=== PATIENT | female | born 1975 | race Caucasian/White ===

== ENCOUNTER 2017-09-23 13:33 | Emergency (ER) | payer BC, SELFPAY ==
[2017-09-23 13:33] VITALS: BP 148/98; PULSE 79; RESP 20; TEMP 36.4; O2SAT 99; BMI 25.8
--- NOTE | 2017-09-23 13:37 | ED_ITS ---
HPI - Abdominal Pain <JOSÉ MIGUEL Meredith - Last Filed: 09/23/17 22:09> General Chief Complaint: Urogenital-Female Stated Complaint: LOW ABD PAIN Time Seen by Provider: 09/23/17 13:36 History of Present Illness HPI narrative: 42-year-old female here for complaint of having left lower quadrant/pelvic pain that started a couple days ago. She denies any vaginal discharge or bleeding. She denies any urinary symptoms. No fevers no chills. She denies any complications with bowel movements. Positive p.o. intake. Denies any trauma to the area. Increased pain with palpation to the area. Related Data Home Medications Medication Instructions Recorded Confirmed citalopram 10 mg PO QPM #0 05/11/17 09/23/17 albuterol sulfate [ProAir HFA] 2 puff INHALATION Q4H PRN 09/23/17 09/23/17 norgestimate-ethinyl estradiol 1 tab PO DAILY 09/23/17 09/23/17 [Lori (28)] Previous Rx's Medication Instructions Recorded losartan 50 mg PO QDAY #30 tab 02/10/16 Allergies Allergy/AdvReac Type Severity Reaction Status Date / Time ethinyl estradiol Allergy Unknown Unverified 08/17/17 12:04 [ETHINYL ESTRADIOL] loratadine [LORATADINE] Allergy Unknown Unverified 08/17/17 12:04 norgestimate [NORGESTIMATE] Allergy Unknown Unverified 08/17/17 12:04 Review of Systems <JOSÉ MIGUEL Meredith - Last Filed: 09/23/17 22:09> Eyes Denies change in vision, Denies eye discharge, Denies irritation and Denies loss of vision Cardiovascular Denies chest pain, Denies irregular heart rhythm, Denies lightheadedness, Denies palpitations and Denies orthopnea Gastrointestinal Gastrointestinal: Denies abdominal pain, Denies change in bowel habits, Denies diarrhea, Denies nausea and Denies vomiting Genitourinary Reports pelvic pain Neurologic Denies confusion and Denies loss of vision Psychiatric Denies anxiety, Denies confusion, Denies depression, Denies homicidal ideation and Denies suicidal ideation Endocrine Denies palpitations Exam <JOSÉ MIGUEL Meredith - Last Filed: 09/23/17 22:09> Initial Vital Signs Initial Vital Signs: Vital Signs Temperature 97.6 F 09/23/17 13:33 Pulse Rate 79 09/23/17 13:33 Respiratory Rate 20 09/23/17 13:33 Blood Pressure 148/98 H 09/23/17 13:33 Pulse Oximetry 99 09/23/17 13:33 Const General: cooperative and well developed Nutritional Appearance: well nourished Orientation: alert, awake, oriented x3 and not confused [facility] Mouth: oral mucosae normal and moist mucous membranes Eyes General: appearance normal, both eyes and all related structures Eyelids: eyelids normal Conjunctivae: conjunctivae normal Sclera: sclerae normal Pupils: PERRL EOM: EOM intact bilaterally Resp Effort & Inspection: normal respiratory effort, able to speak in complete sentences, no respiratory distress and no use of accessory muscles Auscultation: clear to auscultation bilaterally, no rales, no rhonchi and no wheezes Cardio Rate: regular rate Rhythm: regular rhythm Heart Sounds: no click, no gallops, no murmurs and no rubs GI Inspection: normal to inspection Palpation: soft, No hepatomegaly, No hernia, No mass, No pulsatile mass and tender (Suprapubic region tenderness on palpation) Auscultation: normal bowel sounds General: No CVA tenderness Skin General: no rashes or lesions noted, No jaundice and No petechiae <Lorne Jenkins DO - Last Filed: 09/24/17 08:20> Initial Vital Signs Initial Vital Signs: Vital Signs Temperature 97.6 F 09/23/17 13:33 Pulse Rate 79 09/23/17 13:33 Respiratory Rate 20 09/23/17 13:33 Blood Pressure 148/98 H 09/23/17 13:33 Pulse Oximetry 99 09/23/17 13:33 Course <JOSÉ MIGUEL Meredith - Last Filed: 09/23/17 22:09> Orders Ordered: Discontinued Medications Hydromorphone HCl (Dilaudid) 0.5 mg IV NOW ONE Stop: 09/23/17 13:53 Last Admin: 09/23/17 14:32 Dose: 0.5 mg Sodium Chloride (Normal Saline 0.9%) 1,000 mls @ 1,000 mls/hr IV BOLUS ONE Stop: 09/23/17 14:51 Last Infusion: 09/23/17 16:45 Dose: 0 mls/hr Admin: 09/23/17 14:30 Dose: 1,000 mls/hr Ondansetron HCl (Zofran) 4 mg IV NOW ONE Stop: 09/23/17 13:53 Last Admin: 09/23/17 14:31 Dose: 4 mg Vital Signs - 8 hr 09/23/17 16:39 Pulse Rate 75 Respiratory Rate 16 Blood Pressure [Left Arm] 133/86 H Pulse Oximetry 100 <Lorne Jenkins DO - Last Filed: 09/24/17 08:20> Orders Ordered: Discontinued Medications Hydromorphone HCl (Dilaudid) 0.5 mg IV NOW ONE Stop: 09/23/17 13:53 Last Admin: 09/23/17 14:32 Dose: 0.5 mg Sodium Chloride (Normal Saline 0.9%) 1,000 mls @ 1,000 mls/hr IV BOLUS ONE Stop: 09/23/17 14:51 Last Infusion: 09/23/17 16:45 Dose: 0 mls/hr Admin: 09/23/17 14:30 Dose: 1,000 mls/hr Ondansetron HCl (Zofran) 4 mg IV NOW ONE Stop: 09/23/17 13:53 Last Admin: 09/23/17 14:31 Dose: 4 mg Vital Signs - 8 hr 09/23/17 16:39 Pulse Rate 75 Respiratory Rate 16 Blood Pressure [Left Arm] 133/86 H Pulse Oximetry 100 MDM - Abdominal Pain <JOSÉ MIGUEL Meredith - Last Filed: 09/23/17 22:09> Lab Data Result diagrams: 09/23/17 14:18 09/23/17 14:18 Lab Results 09/23/17 09/23/17 Range/Units 14:18 14:18 WBC 9.6 (4.5-11.0) X10^3/uL RBC 4.36 (4.0-5.2) X10^6/uL Hgb 12.4 (12.0-16.0) g/dL Hct 37.1 (36-46) % MCV 85.2 (80-100) fL MCH 28.5 (26-34) PG MCHC 33.5 (30-36) % RDW 14.1 (11.6-14.8) % Plt Count 207 (150-400) X10^3/uL Neut % (Auto) 64.7 (50-75) % Lymph % (Auto) 27.8 (25-40) % [place] % (Auto) 4.5 (3-14) % Eos % (Auto) 2.2 (2-4) % Baso % (Auto) 0.8 (0-2) % Neut # (Auto) 6200 H (8384-5799) /uL Sodium 139 (137-145) mmol/L Potassium 3.9 (3.4-5.1) mmol/L Chloride 103.0 (98-107) mmol/L Carbon Dioxide 25.0 (22-32) mmol/L BUN 14.0 (7-17) mg/dL Creatinine 0.80 (0.52-1.04) mg/dL Estimated GFR > 60.0 (>60) mL/min BUN/Creatinine Ratio 17.5 (6-22) Glucose 117 H (70-100) mg/dL Calcium 9.2 (8.4-10.2) mg/dL Total Bilirubin 0.4 (0.2-1.3) mg/dL AST 16 (14-36) IU/L ALT 18 (9-52) IU/L Alkaline Phosphatase 47 (38-126) U/L Total Protein 6.9 (6.3-8.2) g/dL Albumin 3.9 (3.5-5.0) g/dL Globulin 3.0 (1.7-4.1) g/dL Albumin/Globulin Ratio 1.3 (1.0-2.8) Lipase 137 (23-300) U/L Imaging Data CT scan - abdomen: Radiologist's impression: PROCEDURE: CT ABDOMEN PELVIS W CON INDICATIONS: Pain to left lower quadrant/pelvic TECHNIQUE: After the administration of oral and intravenous contrast, 5 mm thick sections acquired from the diaphragms to the symphysis. 5 mm thick coronal and sagittal reformats were performed. For radiation dose reduction, the following was used: automated exposure control, adjustment of mA and/or kV according to patient size. COMPARISON: [facility], US, US PELVIC COMPLETE, 09/23/2017, 14:46. [facility], CT, KIDNEY/ URETER/BLADDER, 03/25/2009, 12:40. FINDINGS: Image quality: Excellent. ABDOMEN: Lung bases: Lung bases are clear. Heart size is normal. Solid organs: Liver is normal in size. There is a centrally enhancing and peripherally hypodense structure identified within the mid aspect of the liver, probably involving the anterior segment of the medial segment of the left hepatic lobe, measuring 9 x 13 mm (image 17, series 2). Gallbladder is decompressed and subsequently not adequately evaluated. Biliary system is non-dilated. Pancreas enhances normally. Spleen is normal in size and enhancement. No adrenal nodules. Kidneys are normal in size and enhancement, without hydronephrosis. Peritoneum and bowel: There is a small hiatal hernia. The stomach and duodenum are otherwise unremarkable. Small bowel loops are nondilated. The appendix is well-visualized and normal. There is moderate residual stool identified within the colon. No mesenteric inflammation is identified. There is no free fluid, loculated fluid collection or free air. Nodes and vessels: No retroperitoneal or mesenteric adenopathy. Aorta and inferior vena cava are normal in caliber. Miscellaneous: There is a small fat containing periumbilical hernia. Is decompressed and subsequently not well evaluated PELVIS: Genitourinary: Bladder wall thickness is normal. The uterus is enlarged and contains multiple fibroids with the largest located along the posterior aspect of the uterus that measures up to approximately 4.7 cm. Left paraovarian cyst correlates with the cystic structure evident on the prior ultrasound. The right ovary is not enlarged. Miscellaneous: No inguinal hernias or adenopathy. No free fluid, loculated fluid collection or free air is identified. Bones: No suspicious bony lesions. No vertebral body compression fractures. IMPRESSION: 1. No definite findings are identified within the abdomen or pelvis to explain the patient's left-sided pelvic pain. 2. Left ovarian cyst correlates with the cystic structure evident on the ultrasound. 3. Multiple uterine fibroids. 4. Normal appendix. 5. Moderate residual stool within the colon may represent constipation. No bowel obstruction. 6. Enhancing lesion within the liver most likely represents a hemangioma. Dedicated MR or CT imaging of the abdomen to evaluate this structure there is recommended, which may be performed on an outpatient basis. Dictated by: Hunter Salazar M.D. on 09/23/2017 at 15:06 Approved by: Hunter Salazar M.D. on 09/23/2017 at 15:15 pelvis: My impression: MDM Narrative Medical decision making narrative: CBC Chem panel and lipase were obtained were unremarkable. Urine dip and urine were negative. Pelvic ultrasound shows left ovarian cyst and fibroids. CT of the abdomen was obtained and also shows left ovarian cyst of fibroids no other acute findings are seen. Patient informed that I the cyst or the fibroids could be causing her discomfort. She is encouraged to follow up with her primary care provider. [id number] Tylenol or Motrin as needed for discomfort. Return emergency room for any worsening symptoms. <Lorne Jenkins, DO - Last Filed: 09/24/17 08:20> Lab Data Lab Results 09/23/17 09/23/17 Range/Units 14:18 14:18 WBC 9.6 (4.5-11.0) X10^3/uL RBC 4.36 (4.0-5.2) X10^6/uL Hgb 12.4 (12.0-16.0) g/dL Hct 37.1 (36-46) % MCV 85.2 (80-100) fL MCH 28.5 (26-34) PG MCHC 33.5 (30-36) % RDW 14.1 (11.6-14.8) % Plt Count 207 (150-400) X10^3/uL Neut % (Auto) 64.7 (50-75) % Lymph % (Auto) 27.8 (25-40) % [place] % (Auto) 4.5 (3-14) % Eos % (Auto) 2.2 (2-4) % Baso % (Auto) 0.8 (0-2) % Neut # (Auto) 6200 H (7413-4271) /uL Sodium 139 (137-145) mmol/L Potassium 3.9 (3.4-5.1) mmol/L Chloride 103.0 (98-107) mmol/L Carbon Dioxide 25.0 (22-32) mmol/L BUN 14.0 (7-17) mg/dL Creatinine 0.80 (0.52-1.04) mg/dL Estimated GFR > 60.0 (>60) mL/min BUN/Creatinine Ratio 17.5 (6-22) Glucose 117 H (70-100) mg/dL Calcium 9.2 (8.4-10.2) mg/dL Total Bilirubin 0.4 (0.2-1.3) mg/dL AST 16 (14-36) IU/L ALT 18 (9-52) IU/L Alkaline Phosphatase 47 (38-126) U/L Total Protein 6.9 (6.3-8.2) g/dL Albumin 3.9 (3.5-5.0) g/dL Globulin 3.0 (1.7-4.1) g/dL Albumin/Globulin Ratio 1.3 (1.0-2.8) Lipase 137 (23-300) U/L Discharge Plan Departure Patient Disposition: Home, Self-Care Clinical Impression: Ovarian cyst Discharge Date/Time: 09/23/17 16:47 Interventions: ED Discharge Assessment Last Done: 09/23/17 16:47 Instructions: DI for Ovarian Cyst Activity Restrictions/Additional Instructions: Ultrasound and a CT show ovarian cyst to the left ovary region and also some fibroids that could be causing your discomfort. Use [id number] Tylenol or Motrin as needed for any discomfort. Follow up with your primary care provider next week. Return emergency room for any worsening symptoms. Lab values were unremarkable. Prescriptions: No Action losartan 50 MG tablet 50 mg PO QDAY Qty: 30 RF: 3 citalopram 20 MG tablet 10 mg PO QPM Qty: 0 RF: 0 norgestimate-ethinyl estradiol [Mononessa (28)] 0.25-35 mg-mcg tablet 1 tab PO DAILY RF: 0 albuterol sulfate [ProAir HFA] 90 mcg/actuation HFA aerosol inhaler 2 puff Inhalation Q4H PRN (Reason: Shortness Of Breath) RF: 0 Referrals: True Caicedo MD [Primary Care Provider] - <Lorne Jenkins DO - Last Filed: 09/24/17 08:20> Cosign ED Attending Joannature Attestation: I was immediately available in the department for consultation. This documentation has been reviewed and I agree with assessment and plan. Supervised by Lorne Jenkins DO
--- NOTE | 2017-09-23 13:52 | DI.US.S_ITS ---
PROCEDURE: US PELVIC COMPLETE INDICATIONS: Left pelvic pain TECHNIQUE: Real-time scanning was performed of the pelvic organs, with image documentation. Additional endovaginal scanning was necessary due to incomplete visualization of the adnexal and endometrial structures by transabdominal scanning. COMPARISON: None. FINDINGS: Transabdominal scanning: Limited scanning through the kidneys shows no hydronephrosis. No pathologic free abdominal or pelvic fluid. Endovaginal scanning: Uterus: The uterus is normal in size and measures 8.3 x 3.7 x 5.3 cm. There are multiple uterine fibroids identified. The largest is located on the mid aspect of the posterior uterus, measuring up to 4.5 cm and is located along the lower uterine segment. This fibroid is felt to represent an intramural fibroid without definite mass effect on the endometrium. 2 additional smaller subserosal fibroids are evident on the anterior aspect of the uterus measuring 1.5 and 1.7 cm respectively. The endometrium is not well-seen on this examination, but measures approximately 5 mm in maximal combined thickness. No significant fluid is contained within the endometrium. The cervix is unremarkable. Ovaries: The right ovary is not definitely seen. No adnexal abnormality is appreciated. The left ovary measures 1.9 x 1.2 x 1.2 cm. Within the left adnexa, there is a cystic structure identified measuring up to 1.9 cm, likely representing a paraovarian cyst. IMPRESSION: 1. Left paraovarian cyst is of doubtful clinical significance. No hemorrhagic left ovarian cysts are evident. 2. Multiple uterine fibroids. Dictated by: Hunter Salazar M.D. on 09/23/2017 at 14:19 Approved by: Hunter Salazar M.D. on 09/23/2017 at 14:21
[2017-09-23 14:27] LABS: Add Manual Diff / Slide Review NO; Basophils Percent Auto 0.8 % (0-2); Eosinophils Percent Auto 2.2 % (2-4); Hematocrit 37.1 % (36-46); Hemoglobin 12.4 g/dL (12.0-16.0); Lymphocytes Percent Auto 27.8 % (25-40); Mean Corpuscular HGB Conc 33.5 % (30-36); Mean Corpuscular Hemoglobin 28.5 PG (26-34); Mean Corpuscular Volume 85.2 fL (80-100); Monocytes Percent Auto 4.5 % (3-14); Neutrophils Absolute Auto 6200 /uL (3000-5900); Neutrophils Percent Auto 64.7 % (50-75); Platelet Count 207 X10^3/uL (150-400); Red Blood Cell Count 4.36 X10^6/uL (4.0-5.2); Red Cell Distribution Width 14.1 % (11.6-14.8); White Blood Cell Count 9.6 X10^3/uL (4.5-11.0)
[2017-09-23] MEDS: SODIUM CHLORIDE 0.9% 1,000 ML 1000 ML IV (14:30)
[2017-09-23] MEDS: ONDANSETRON 4 MG/2 ML INJ IV (14:31)
[2017-09-23] MEDS: HYDROMORPHONE 1 MG INJ 0.5 MG IV (14:32)
[2017-09-23 14:38] LABS: Alanine Aminotransferase 18 IU/L (9-52); Albumin 3.9 g/dL (3.5-5.0); Albumin Globulin Ratio 1.3 (1.0-2.8); Alkaline Phosphatase 47 U/L (38-126); Aspartate Aminotransferase 16 IU/L (14-36); BUN Creatinine Ratio 17.5 (6-22); Bilirubin Total 0.4 mg/dL (0.2-1.3); Calcium 9.2 mg/dL (8.4-10.2); Estimated Glomerular Filt Rate > 60.0 mL/min (>60); Glucose 117 mg/dL (70-100); HEMOLYSIS < 15 (0-50); Lipase 137 U/L (23-300); Potassium 3.9 mmol/L (3.4-5.1); Sodium 139 mmol/L (137-145); Total Protein 6.9 g/dL (6.3-8.2)
--- NOTE | 2017-09-23 15:30 | DI.CT.S_ITS ---
PROCEDURE: CT ABDOMEN PELVIS W CON INDICATIONS: Pain to left lower quadrant/pelvic TECHNIQUE: After the administration of oral and intravenous contrast, 5 mm thick sections acquired from the diaphragms to the symphysis. 5 mm thick coronal and sagittal reformats were performed. For radiation dose reduction, the following was used: automated exposure control, adjustment of mA and/or kV according to patient size. COMPARISON: [facility], US, US PELVIC COMPLETE, 09/23/2017, 14:46. [facility], CT, KIDNEY/ URETER/BLADDER, 03/25/2009, 12:40. FINDINGS: Image quality: Excellent. ABDOMEN: Lung bases: Lung bases are clear. Heart size is normal. Solid organs: Liver is normal in size. There is a centrally enhancing and peripherally hypodense structure identified within the mid aspect of the liver, probably involving the anterior segment of the medial segment of the left hepatic lobe, measuring 9 x 13 mm (image 17, series 2). Gallbladder is decompressed and subsequently not adequately evaluated. Biliary system is non-dilated. Pancreas enhances normally. Spleen is normal in size and enhancement. No adrenal nodules. Kidneys are normal in size and enhancement, without hydronephrosis. Peritoneum and bowel: There is a small hiatal hernia. The stomach and duodenum are otherwise unremarkable. Small bowel loops are nondilated. The appendix is well-visualized and normal. There is moderate residual stool identified within the colon. No mesenteric inflammation is identified. There is no free fluid, loculated fluid collection or free air. Nodes and vessels: No retroperitoneal or mesenteric adenopathy. Aorta and inferior vena cava are normal in caliber. Miscellaneous: There is a small fat containing periumbilical hernia. Is decompressed and subsequently not well evaluated PELVIS: Genitourinary: Bladder wall thickness is normal. The uterus is enlarged and contains multiple fibroids with the largest located along the posterior aspect of the uterus that measures up to approximately 4.7 cm. Left paraovarian cyst correlates with the cystic structure evident on the prior ultrasound. The right ovary is not enlarged. Miscellaneous: No inguinal hernias or adenopathy. No free fluid, loculated fluid collection or free air is identified. Bones: No suspicious bony lesions. No vertebral body compression fractures. IMPRESSION: 1. No definite findings are identified within the abdomen or pelvis to explain the patient's left-sided pelvic pain. 2. Left ovarian cyst correlates with the cystic structure evident on the ultrasound. 3. Multiple uterine fibroids. 4. Normal appendix. 5. Moderate residual stool within the colon may represent constipation. No bowel obstruction. 6. Enhancing lesion within the liver most likely represents a hemangioma. Dedicated MR or CT imaging of the abdomen to evaluate this structure there is recommended, which may be performed on an outpatient basis. Dictated by: Hunter Salazar M.D. on 09/23/2017 at 15:06 Approved by: Hunter Salazar M.D. on 09/23/2017 at 15:15
[2017-09-23 16:39] VITALS: BP 133/86; PULSE 75; RESP 16; O2SAT 100
== END 2017-09-23 16:47 | disposition home or self-care (01) ==
PROVIDERS: Emergency Provider Nurse Practitioner Family; PCP Specialist
DX: N83.209 Unspecified ovarian cyst, unspecified side (principal)
CPT/HCPCS: 36591; 74177; 76830; 76856; 80053; 81003; 81025; 83690; 85025; 94760; 96361; 96374; 96375; 99283; 99284; J1170; J2405; Q9967

== ENCOUNTER 2018-12-16 10:06 | Emergency (ER) | payer BC, SELFPAY ==
[2018-12-16] VITALS (14 sets, daily range): BP systolic 91–175; BP diastolic 76–127; PULSE 80–116; RESP 14–94; TEMP 37.2; O2SAT 96–100
--- NOTE | 2018-12-16 10:16 | DI.RAD.S_ITS ---
PROCEDURE: XR ANKLE LT MIN 3V INDICATIONS: swelling TECHNIQUE: 3 views of the ankle were acquired. COMPARISON: None. FINDINGS: Bones: There is an obliquely oriented fracture identified involving the distal aspect of the fibula with intra-articular extension and mild widening of the distal tibiofibular syndesmosis. There also is a horizontal transverse fracture identified through the base of the medial malleolus with lateral displacement of the distal fracture fragment by up to approximately 6 mm. Irregularity of the posterior malleolus is suggestive of a fracture. Soft tissues: There is a tibiotalar joint effusion. Prominent soft tissue swelling about the ankle is present. IMPRESSION: Trimalleolar left ankle fracture with probable disruption of the distal tibiofibular syndesmosis. Dictated by: Hunter Salazar M.D. on 12/16/2018 at 9:34 Approved by: Hunter Salazar M.D. on 12/16/2018 at 9:36
--- NOTE | 2018-12-16 10:42 | ED_ITS ---
HPI - Extremity Injury (Lower) General Chief Complaint: Extremity Injury, Lower Stated Complaint: broken ankle Time Seen by Provider: 12/16/18 10:25 Source: patient and family Mode of arrival: wheelchair Limitations: no limitations History of Present Illness HPI Narrative: 43-year-old female with a friend in the chief complaint of an obvious left ankle injury suffered last night. [place] admittedly [place] and does not remember the specifics of her injury, but upon waking today had obvious severe pain, swelling to her ankle. She denies any head, neck or back injury. She denies hip or knee pain. She denies any chest pain or shortness of breath. She has no numbness, tingling or weakness. MD complaint: ankle injury Type of Injury: unknown Place: street/outdoors Severity: severe Relieving factors: immobilization Exacerbating factors: weight bearing, movement and palpation Associated symptoms: snap/pop sensation, swelling and unable to bear weight Other symptoms: none Related Data Home Medications Medication Instructions Recorded Confirmed citalopram 10 mg PO QPM #0 05/11/17 09/30/17 albuterol sulfate [ProAir HFA] 2 puff INHALATION Q4H PRN 09/23/17 09/30/17 Previous Rx's Medication Instructions Recorded losartan 50 mg PO QDAY #30 tab 02/10/16 norgestimate 0.25 mg-ethinyl 1 tab PO DAILY #28 tab 07/14/18 estradiol 35 mcg tablet hydrocodone-acetaminophen 1 tab PO Q4-6H PRN #30 tab 12/16/18 ondansetron 4 mg PO TID-QID PRN #10 tab 12/16/18 Allergies Allergy/AdvReac Type Severity Reaction Status Date / Time ethinyl estradiol Allergy Unknown Unverified 09/30/17 12:16 [ETHINYL ESTRADIOL] loratadine [LORATADINE] Allergy Unknown Unverified 09/30/17 12:16 norgestimate [NORGESTIMATE] Allergy Unknown Unverified 09/30/17 12:16 Review of Systems Constitutional Denies chills, Denies fever(s), Denies lethargy and Denies weakness Eyes Denies change in vision, Denies eye discharge, Denies irritation and Denies loss of vision ENT Ears, Nose, Mouth, and Throat: Denies change in voice, Denies neck pain and Denies sore throat Cardiovascular Denies chest pain, Denies irregular heart rhythm, Denies lightheadedness, Denies palpitations, Denies dyspnea, Denies dyspnea on exertion and Denies orthopnea Respiratory Denies cough, Denies dyspnea, Denies dyspnea on exertion and Denies wheezing Gastrointestinal Gastrointestinal: Denies abdominal pain, Denies change in bowel habits, Denies diarrhea, Denies nausea and Denies vomiting Genitourinary Denies hematuria, Denies flank pain, Denies urinary incontinence and Denies urinary urgency Musculoskeletal Reports joint swelling, Reports limited range of motion and Denies neck pain Integumentary/Breasts Denies pruritus, Denies erythema, Denies rash and Denies wounds Neurologic Denies confusion, Denies loss of vision and Denies weakness Psychiatric Denies anxiety, Denies confusion, Denies depression, Denies homicidal ideation and Denies suicidal ideation Endocrine Denies palpitations Hematologic/Lymphatic Denies easy bruising Allergic/Immunologic Denies wheezing [facility] Surgical History History of third molar tooth extraction Social History Smoking Status: Never smoker Social History Smoking Status: Never smoker Exam Narrative Exam Narrative: GENERAL: [43] year old patient appears stated age. Well- nourished, well-developed patient, in mild distress. HEAD: Atraumatic. Normocephalic. EYES: Pupils equal round and reactive. Extraocular motions intact. No scleral icterus. No injection or drainage. ENT: Nose without bleeding, purulent drainage. Throat without erythema, tonsillar hypertrophy or exudate. Airway patent. NECK: Trachea midline. Non tender CARDIOVASCULAR: Regular rate and rhythm without murmurs, gallops, or rubs. RESPIRATORY: Clear to auscultation. Breath sounds equal bilaterally. No wheezes, rales, or rhonchi. GASTROINTESTINAL: Abdomen soft, non-tender, nondistended. EXTREMITIES: Obvious swelling to left ankle with ecchymoses, neurovascularly intact, closed and isolated injury BACK: Nontender without deformity or crepitance. No flank tenderness. NEURO: AOx3. SKIN: No rash or erythema of visible areas Initial Vital Signs Initial Vital Signs: Vital Signs Temperature 98.9 F 12/16/18 10:11 Pulse Rate 116 H 12/16/18 10:11 Respiratory Rate 20 12/16/18 10:11 Blood Pressure 155/107 H 12/16/18 10:11 Pulse Oximetry 99 12/16/18 10:11 Procedures Orthopedic Fracture Reduction Fracture #1: Time Out Performed: Yes Side: left Fracture Reduction Location: other (trimalleolar) Analgesia: procedural sedation Technique: direct manipulation Post-reduction neuro exam: intact Post-reduction vascular exam: intact Splint Applied: Yes Patient Tolerated Procedure: Well Orthopedic Splinting/Casting Injury #1: Side: left Upper Extremity Immobilizer: posterior splint and sugar tong splint Lower Extremity Injury Location: ankle Lower Extremity Immobilizer: posterior splint and stirrup splint Other Orthopedic Equipment: crutches Post splinting neuro exam: intact Post splinting vascular exam: intact Placed by: Provider Procedural Sedation Patient Age: Patient is 5yrs or older Consent signed: Yes Time out performed: Yes Indication: fracture/dislocation reduction ASA Class: II Mallampati Airway Classification: Class II Preparation: supervisor mold cleaning and storage applied, pulse oximeter, capnometry used, supplemental O2 applied, suction/airway equipment at bedside and IV secured IV Propofol dose (mg): 200 Intraservice time/total sedation time (min): 10 ED Sedation Level: Moderate (Concious) Patient Tolerated Procedure: Well Complications: none Course Orders Ordered: Discontinued Medications Hydrocodone Bitart/Acetaminophen (Cunningham 5/325) 2 tab PO NOW ONE Stop: 12/16/18 12:22 Last Admin: 12/16/18 12:47 Dose: 2 tab Sodium Chloride (Normal Saline 0.9%) 1,000 mls @ 1,000 mls/hr IV BOLUS ONE Stop: 12/16/18 13:54 Last Infusion: 12/16/18 13:21 Dose: 0 mls/hr Admin: 12/16/18 12:05 Dose: 1,000 mls/hr Propofol (Diprivan) 140 mg 2 mg/kg (140 mg) IV NOW ONE Stop: 12/16/18 11:02 Last Admin: 12/16/18 12:10 Dose: 140 mg Propofol (Diprivan) 60 mg IV NOW ONE Stop: 12/16/18 12:31 Last Admin: 12/16/18 12:31 Dose: 60 mg Consultations Consultation #1: Discussed with on-call orthopedics whom recommend splinting, nonweightbearing and follow up Vital Signs - 8 hr 12/16/18 10:11 Temperature 98.9 F Pulse Rate 116 H Respiratory Rate 20 Blood Pressure 155/107 H Pulse Oximetry 99 MDM - Extremity Injury (Lower) Lab Data Point of Care Testing Test Results Negative Discharge Plan Departure Patient Disposition: Home Clinical Impression: Closed trimalleolar fracture Qualifiers: Encounter type: initial encounter Laterality: left Qualified Code(s): S82.852A - Displaced trimalleolar fracture of left lower leg, initial encounter for closed fracture Discharge Date/Time: 12/16/18 13:23 Interventions: ED Discharge Assessment Last Done: 12/16/18 13:22 Instructions: DI for Ankle Fracture Activity Restrictions/Additional Instructions: *You have been diagnosed with [left ankle fracture] *What to do: *Take medications as directed *Follow up with [facility]. Call Tuesday for an appointment, tell them you were seen in the emergency department and we need you seen in follow-up for your ankle fracture *Return to ER if you should have any new, worsening or concerning symptoms, such as [worsening pain, numbness, tingling or other bothersome symptoms NO WEIGHT BEARING] Prescriptions: New hydrocodone-acetaminophen 5-325 mg tablet 1 tab PO Q4-6H PRN (Reason: pain) Qty: 30 RF: 0 ondansetron 4 mg tablet,disintegrating 4 mg PO TID-QID PRN (Reason: nausea and vomiting) Qty: 10 RF: 0 No Action losartan 50 MG tablet 50 mg PO QDAY Qty: 30 RF: 3 citalopram 20 MG tablet 10 mg PO QPM Qty: 0 RF: 0 norgestimate-ethinyl estradiol [Estarylla] 0.25-35 mg-mcg tablet 1 tab PO DAILY Qty: 28 RF: 11 albuterol sulfate [ProAir HFA] 90 mcg/actuation HFA aerosol inhaler 2 puff Inhalation Q4H PRN (Reason: Shortness Of Breath) RF: 0 Referrals: Cain Oakley MD [Physician] - True Caicedo MD [Primary Care Provider] -
[2018-12-16] MEDS: SODIUM CHLORIDE 0.9% 1,000 ML 1000 ML IV (12:05)
[2018-12-16] MEDS: PROPOFOL 200 MG/20 ML VIAL 140 MG IV (12:10)
[2018-12-16] MEDS: PROPOFOL 200 MG/20 ML VIAL 60 MG IV (12:31)
[2018-12-16] MEDS: HYDROCODONE/ACET 5/325 TABLET 2 TAB PO (12:47)
== END 2018-12-16 13:23 | disposition home or self-care (01) ==
PROVIDERS: Emergency Provider Emergency Medicine; PCP Specialist
DX: S82.853A Displaced trimalleolar fracture of unspecified lower leg, initial encounter for closed fracture (principal)
CPT/HCPCS: 27818; 29515; 36591; 73610; 94770; 96361; 96374; 99152; 99285; 99291; J2704

== ENCOUNTER 2018-12-22 08:31 | Day surgery (SDC) | payer BC, SELFPAY ==
[2018-12-20 11:43] VITALS: BMI 26.1
[2018-12-22] VITALS (30 sets, daily range): BP systolic 136–179; BP diastolic 87–119; PULSE 80–110; RESP 12–20; TEMP 36.1–36.7; O2SAT 91–98; BMI 26.1
--- NOTE | 2018-12-22 | DI.RAD.S_ITS ---
PROCEDURE: XR ANKLE LT 2V INDICATIONS: LEFT FX REPAIR TECHNIQUE: 2 views of the ankle were acquired. COMPARISON: [facility], CR, XR ANKLE LT MIN 3V, 12/16/2018, 10:27. FINDINGS: 2 spot fluoroscopic intraoperative views demonstrate plate and screw fixation of lateral malleolus. There is also medial malleolar screw fixation. There is expected intraoperative alignment. Dictated by: Nico Romero M.D. on 12/22/2018 at 12:54 Approved by: Nico Romero M.D. on 12/22/2018 at 12:55
[2018-12-22] MEDS: LACTATED RINGERS 1,000 ML 42 ML IV (09:00)
--- NOTE | 2018-12-22 09:01 | PM.PREOP ---
Pre-operative Note Interval Note History & Physical reviewed/Exam performed by Physician: Yes Changes to H&P: No
[2018-12-22] MEDS: CEFAZOLIN VIAL 1 GM in SODIUM CHLORIDE 0.9% 100 ML 200 ML IV (09:38)
[2018-12-22] MEDS: MEPERIDINE 50 MG/ML INJ 25 MG IV (11:20)
--- NOTE | 2018-12-22 11:20 | P.OP_ITS ---
Operative Date/Time/Diagnoses Date of procedure: 12/22/18 Time of procedure: 11:00 Pre-op diagnosis: Left bimalleolar ankle fracture Post-op diagnosis: same Procedure & Clinicians Procedure: Open reduction internal fixation of left bimalleolar ankle fracture Same procedure as scheduled: Yes Indications: The patient is a 43-year-old woman who sustained a fall approximately 5 days ago sustaining the above-noted fracture. She has agreed to open reduction internal fixation after discussion the risks benefits and alternatives as documented in my history and physical note. Surgeon: Cain Oakley Click Yes if Unassisted: Yes Anesthesia Type: General and Local Operative Notes Findings: Displaced bimalleolar ankle fracture with reasonable quality of bone. Closure Type: primary Specimen(s): none sent Prosthetic devices, grafts, tissues, transplants, or devices: Six hole 1/3 tubular plate with 6 screws (4 cortical and 2 cancellous) for the plate and an interfragmentary lag screw laterally. On the medial side there were 2 40 mm partially threaded cancellous bone screws. Applied: cast(s) and implant(s) Estimated Blood Loss (mL): 10 Blood products transfused: none Tourniquet time (min): 50 Procedure in detail: The patient was seen in the preoperative area where she identified her left leg as the operative site and her toes were marked with my initials. She was taken to the operating room after she receiving preoperative antibiotics and was placed on the operating room table in a supine position. She underwent induction with general anesthetic. A tourniquet was placed about her proximal left thigh. Her splint was removed. A mobility developer-out was performed. The leg was prepared from the toes to the tourniquet with ChloraPrep in the usual fashion and draped through sterile drapes. The leg was elevated and exsanguinated with an Esmarch bandage and tourniquet inflated to 250 mm of mercury. An approximately 10 cm incision was created over the distal fibula in line with the shaft of the bone. This was carried with careful dissection through the fascia to the distal fibula. The fracture was cleaned of hematoma and reduced with a toothed reduction clamp. An interfragmentary lag screw was placed. This had some fixation but was not good enough by itself to hold the fracture. A 6 hole 1/3 tubular plate was bent into the appropriate position and held against the side of the fibula and screws applied. The distal 2 holes were filled with unicortical cancellous bone screws because they were below the ankle joint line. The proximal 4 screws were bicortical cortical screws. The position of this plate and the fracture were confirmed as being appropriate on fluoroscopy. The wound was irrigated and the subcutaneous layer closed with interrupted 3 O Vicryl. We then approached the medial side with an approximately 4 cm incision centered over the fracture site of the medial malleolus. The fracture site was again cleaned of hematoma and periosteum. It was aligned and held in position with a pointed reduction clamp. Two parallel screws were placed to fix the fragment. These were 40 mm partially-threaded screws. Once again the position of all hardware and the fracture site were confirmed as being satisfactory on the AP and lateral views of fluoroscopy. The mortise appeared to be symmetrically reduced. The medial wound was then irrigated. The subcutaneous layer here was closed with 3 O Vicryl as well. The skin was then closed with debby. The subcutaneous tissues were injected with 0.5% Marcaine for postoperative pain control. Dressings of Xeroform, sterile 4x4s, cast padding and a stirrup type splint were applied. The tourniquet was deflated during dressing placement for total tourniquet time of 50 minutes. Patient was then extubated in the operating room and taken to recovery in good condition having tolerated the procedure well. Complications: none Condition: stable Disposition: PACU Plan for aftercare: Patient will be maintained on standard ankle fracture protocol with 4 weeks of nonweightbearing. She will have a wound check and staple removal in 2 weeks and then be placed in a cast. Two weeks after that she will likely be placed in a walking orthosis to be allowed to weightbear with protection for an additional 4 weeks.
[2018-12-22] MEDS: METOPROLOL TARTRATE 5 MG/5 ML INJ IV ×3 (11:24→11:38)
[2018-12-22] MEDS: fentaNYL 100 MCG/2 ML INJ 50 MCG IV ×2 (11:25→12:18)
[2018-12-22] MEDS: HYDRALAZINE 20 MG/ML VIAL 5 MG IV ×4 (11:50→12:10)
[2018-12-22] MEDS: hydrOXYzine pamoate 25 MG CAPSULE PO (12:06)
[2018-12-22] MEDS: OXYCODONE IR 5 MG TABLET PO (12:16)
[2018-12-22] MEDS: ONDANSETRON 4 MG/2 ML INJ IV (12:38)
--- NOTE | 2018-12-22 12:40 | SUR.PHASEI ---
care assumed report recieved. patient awake and alert being given zofran post emesis. color pale.
== END 2018-12-22 14:05 | disposition home or self-care (01) ==
PROVIDERS: PCP Specialist; Visit Provider Orthopaedic Surgery
PROC: (CPT 27814; principal; 2018-12-22 10:00)
DX: S82.842A Displaced bimalleolar fracture of left lower leg, initial encounter for closed fracture (principal); I10 Essential (primary) hypertension; J45.909 Unspecified asthma, uncomplicated; F32.9 Major depressive disorder, single episode, unspecified; W01.0XXA Fall on same level from slipping, tripping and stumbling without subsequent striking against object, initial encounter
CPT/HCPCS: 27814; 73600; 76000; J0360; J0690; J1100; J1170; J2175; J2405; J2704; J3010

== ENCOUNTER 2019-02-01 16:01 | Emergency (ER) | payer BC, SELFPAY ==
[2019-02-01 16:05] VITALS: BP 157/99; PULSE 123; RESP 28; TEMP 36.9; O2SAT 96
[2019-02-01] MEDS: ALBUTEROL/IPRATROPIUM 3 ML AMPUL INH ×2 (16:15→18:19)
[2019-02-01] MEDS: ALBUTEROL 2.5 MG/3 ML NEB (ADULT) INH (16:15)
[2019-02-01 16:24] VITALS: PULSE 99; RESP 20; O2SAT 97
--- NOTE | 2019-02-01 16:26 | DI.RAD.S_ITS ---
PROCEDURE: XR CHEST 2V INDICATIONS: shortness of breath TECHNIQUE: 2 views of the chest were acquired. COMPARISON: [facility], , CHEST 2 VIEW, 08/25/2011, 11:51. FINDINGS: Surgical changes and devices: None. Lungs and pleura: Lungs are clear. No pleural effusions or pneumothorax. Mediastinum: Mediastinal contours are normal. Heart size is normal. Bones and chest wall: No suspicious bony abnormalities. Soft tissues appear unremarkable. IMPRESSION: No acute cardiopulmonary findings. Dictated by: Dary Zamudio M.D. on 02/01/2019 at 17:35 Approved by: Dary Zamudio M.D. on 02/01/2019 at 17:36
[2019-02-01 16:45] LABS: Add Manual Diff / Slide Review NO; Basophils Absolute Auto 0 /uL (0-100); Basophils Percent Auto 0.1 % (0-2); Eosinophils Absolute Auto 0 /uL (0-450); Hematocrit 38.2 % (36-46); Hemoglobin 12.5 g/dL (12.0-16.0); Lymphocytes Absolute Auto 500 /uL (1100-4500); Lymphocytes Percent Auto 3.1 % (25-40); Mean Corpuscular HGB Conc 32.8 % (30-36); Mean Corpuscular Hemoglobin 27.2 PG (26-34); Mean Corpuscular Volume 83.1 fL (80-100); Monocytes Absolute Auto 200 /uL (0-900); Monocytes Percent Auto 1.1 % (3-14); Neutrophils Absolute Auto 16800 /uL (1500-7000); Neutrophils Percent Auto 95.7 % (50-75); Platelet Count 293 X10^3/uL (150-400); Red Cell Distribution Width 14.7 % (11.6-14.8); White Blood Cell Count 17.6 X10^3/uL (4.5-11.0)
[2019-02-01] MEDS: methylPREDNISolone 125 MG/2 ML VIAL IV (16:45)
[2019-02-01] MEDS: SODIUM CHLORIDE 0.9% 1,000 ML 1000 ML IV (16:46)
[2019-02-01 17:07] LABS: D Dimer 2264 ng/mL (<230)
[2019-02-01 17:15] LABS: Bacteria Urine None Seen; WBC Urine None Seen (0-5/HPF)
--- NOTE | 2019-02-01 17:16 | DI.CT.S_ITS ---
PROCEDURE: CT ANGIO CHEST PE PROTOCOL INDICATIONS: post op, shortness of breath, tachy TECHNIQUE: After the administration of intravenous contrast, 2 mm thick sections acquired from the pulmonary apices to the posterior costophrenic angles. 3-dimensional maximum intensity projection (MIP) coronal and sagittal reformats were then acquired through the thorax. For radiation dose reduction, the following was used: automated exposure control, adjustment of mA and/or kV according to patient size. COMPARISON: None. FINDINGS: Image quality: Excellent. Pulmonary arteries: Pulmonary arteries are normal in size, and demonstrate no intraluminal filling defects to suggest central pulmonary embolism. Lungs and pleura: Lungs are clear. No pleural effusions or pneumothorax. Central and peripheral airways are patent. Mediastinum: Heart size is normal, without pericardial effusion. No mediastinal or hilar adenopathy. Thoracic aorta is normal in caliber and enhancement. Esophagus is normal in caliber, without hiatal hernia. Bones and chest wall: No suspicious bony lesions. Ribs and thoracic spine appear intact throughout. Thyroid gland is unremarkable. No axillary or supraclavicular adenopathy. Abdomen: Visualized upper abdominal solid organs appear normal in the early arterial phase of enhancement. IMPRESSION: 1. No acute pulmonary embolus. Dictated by: Dary Zamudio M.D. on 02/01/2019 at 17:53 Approved by: Dary Zamudio M.D. on 02/01/2019 at 17:54
[2019-02-01 17:25] LABS: Alanine Aminotransferase 11 IU/L (9-52); Albumin 4.6 g/dL (3.5-5.0); Albumin Globulin Ratio 1.4 (1.0-2.8); Alkaline Phosphatase 75 U/L (38-126); Aspartate Aminotransferase 31 IU/L (14-36); BUN Creatinine Ratio 12.9 (6-22); Bilirubin Total 0.4 mg/dL (0.2-1.3); Blood Urea Nitrogen 9 mg/dL (7-17); Calcium 10.1 mg/dL (8.4-10.2); Carbon Dioxide 19 mmol/L (22-32); Chloride 107 mmol/L (98-107); Estimated Glomerular Filt Rate > 60.0 mL/min (>60); Globulin 3.2 g/dL (1.7-4.1); Glucose 154 mg/dL (70-100); HEMOLYSIS < 15 (0-50); Potassium 3.5 mmol/L (3.4-5.1); Sodium 141 mmol/L (137-145); Total Protein 7.8 g/dL (6.3-8.2)
[2019-02-01 17:29] LABS: Culture Indicated Urine Cult Not Indicated; RBC Urine 1-5/HPF (0-5/HPF)
[2019-02-01 17:30] VITALS: BP 157/101; PULSE 113; RESP 20; O2SAT 97
[2019-02-01 17:31] LABS: Prothrombin Time 11.1 SECONDS (10.1-12.7)
[2019-02-01 17:33] LABS: PTT Partial Thromboplastin Tim 27 SECONDS (26.4-36.2)
[2019-02-01 18:25] VITALS: PULSE 87; RESP 14; O2SAT 99
[2019-02-01 18:30] VITALS: BP 144/93; PULSE 103; RESP 20; O2SAT 98
[2019-02-01 19:18] VITALS: BP 158/98; PULSE 109; RESP 18; O2SAT 98
--- NOTE | 2019-02-01 19:24 | ED.ASTHMA ---
HPI - Asthma <MARTIN Rosen - Last Filed: 02/01/19 19:30> General Chief Complaint: Asthma Stated Complaint: asthma exacerbation Time Seen by Provider: 02/01/19 16:20 Source: patient Mode of arrival: Wheelchair Limitations: physical limitation History of Present Illness HPI Narrative: The patient is a 44-year-old female current marijuana smoker who presents with a chief complaint of an asthma exacerbation. She has a history of asthma and depression. She states that her asthma got worse yesterday. She saw [facility] provider, who started her on prednisone, but she vomited it up. She states she was able to take half a tab prednisone this morning, totaling 10 mg. She complains of worsening wheezing, coughing. She denies any fevers, current vomiting diarrhea or abdominal pain. She denies any chest pain, but complains of type breathing. The patient had surgery 6 weeks ago. Related Data Home Medications Medication Instructions Recorded Confirmed citalopram 10 mg PO QPM #0 05/11/17 12/20/18 albuterol sulfate 2 puff INHALATION Q4H PRN 09/23/17 12/20/18 Previous Rx's Medication Instructions Recorded losartan 50 mg PO QDAY #30 tab 02/10/16 norgestimate 0.25 mg-ethinyl 1 tab PO DAILY #28 tab 07/14/18 estradiol 35 mcg tablet ondansetron 4 mg PO TID-QID PRN #10 tab 12/16/18 hydroxyzine pamoate 25 mg PO Q4HR PRN #40 cap 12/22/18 oxycodone 5 mg PO Q4HR PRN #40 tab 12/22/18 ipratropium-albuterol 3 ml INHALATION Q4-6H PRN #90 ml 02/01/19 prednisone 50 mg PO BID #5 tab 02/01/19 Allergies Allergy/AdvReac Type Severity Reaction Status Date / Time shellfish derived Allergy Severe Difficulty Verified 12/22/18 09:08 Breathing ethinyl estradiol Allergy Unknown Unverified 09/30/17 12:16 [ETHINYL ESTRADIOL] loratadine [LORATADINE] Allergy Unknown Unverified 09/30/17 12:16 norgestimate [NORGESTIMATE] Allergy Unknown Unverified 09/30/17 12:16 Review of Systems <MARTIN Rosen - Last Filed: 02/01/19 19:30> Review of Systems Narrative: GENERAL: Denies chills, fatigue, malaise, fever, sweats. HEENT: Denies sinus pain, ear pain, sore throat, difficulty swallowing, dizziness. RESPIRATORY: See HPI CARDIOVASCULAR: Denies chest pain, palpitations, orthopnea, edema, GASTROINTESTINAL: Denies nausea, vomiting, abdominal pain, diarrhea, constipation, melena. : Denies dysuria, frequency, incontinence, hematuria, urinary retention. MUSCULOSKELETAL: denies weakness, joint pain, or bony pain SKIN: Denies rash, skin lesions, or other NEUROLOGIC: Denies weakness, headache, numbness, change in speech, confusion, seizures, incoordination. PSYCHIATRIC: No concerning psychosocial issues. 12 point review of systems is negative except for those stated above Exam <Amy Rangel [facility] - Last Filed: 02/01/19 19:30> Narrative Exam Narrative: GENERAL: This is a well-nourished, well-developed patient, in no acute distress HEAD: Atraumatic. Normocephalic. No temporal or scalp tenderness. EYES: Pupils equal round and reactive. Extraocular motions intact. No scleral icterus. No injection or drainage. ENT: Nose without bleeding, purulent drainage or septal hematoma. Throat without erythema, tonsillar hypertrophy or exudate. Uvula midline. Airway patent. NECK: Trachea midline. No JVD or lymphadenopathy. Supple, nontender, no meningeal signs. CARDIOVASCULAR: Regular rate and rhythm without murmurs, gallops, or rubs. RESPIRATORY: Bilateral expiratory wheezes to auscultation, all hayes. Breath sounds equal bilaterally. No rales, or rhonchi. Tachypnea. Initially cannot speak full sentences. No stridor. GASTROINTESTINAL: Abdomen soft, non-tender, nondistended. No hepato-splenomegaly, or palpable masses. No guarding. EXTREMITIES: No erythema or swelling bilateral lower extremities. Soft nontender to palpation. BACK: Nontender without deformity or crepitance. No flank tenderness. NEURO: AOx3. SKIN: Postoperative incisions well healed and well approximated on right lateral and medial ankle. No erythema or swelling bilateral lower extremities. Initial Vital Signs Initial Vital Signs: Vital Signs Temperature 98.5 F 02/01/19 16:05 Pulse Rate 123 H 02/01/19 16:05 Respiratory Rate 28 H 02/01/19 16:05 Blood Pressure 157/99 H 02/01/19 16:05 Pulse Oximetry 96 02/01/19 16:05 <Yoandy Horton DO - Last Filed: 02/02/19 06:54> Initial Vital Signs Initial Vital Signs: Vital Signs Temperature 98.5 F 02/01/19 16:05 Pulse Rate 123 H 02/01/19 16:05 Respiratory Rate 28 H 02/01/19 16:05 Blood Pressure 157/99 H 02/01/19 16:05 Pulse Oximetry 96 02/01/19 16:05 PFSH <MARTIN Rosen - Last Filed: 02/01/19 19:30> Medical History Ankle fracture, left (Acute 12/15/18) Asthma (Acute) Fibroids (Acute) HTN (hypertension) (Acute) Ovarian cyst (Acute) Surgical History History of third molar tooth extraction Social History household members: significant other Smoking Status: Never smoker Social History household members: significant other Smoking Status: Never smoker Course <MARTIN Rosen - Last Filed: 02/01/19 19:30> Orders Ordered: Discontinued Medications Albuterol (Ventolin) 2.5 mg INH NOW ONE Stop: 02/01/19 16:10 Last Admin: 02/01/19 16:15 Dose: 2.5 mg Documented by: PHILLY Albuterol/Ipratropium (Duoneb) 3 ml INH NOW ONE Stop: 02/01/19 16:07 Last Admin: 02/01/19 16:15 Dose: 3 ml Documented by: PHILLY Albuterol/Ipratropium (Duoneb) 3 ml INH NOW ONE Stop: 02/01/19 18:15 Last Admin: 02/01/19 18:19 Dose: 3 ml Documented by: PHILLY Sodium Chloride (Normal Saline 0.9%) 1,000 mls @ 1,000 mls/hr IV BOLUS ONE Stop: 02/01/19 17:42 Last Infusion: 02/01/19 18:40 Dose: 0 mls/hr Documented by: Admin: 02/01/19 16:46 Dose: 1,000 mls/hr Documented by: BLANE Sodium Chloride (Normal Saline 0.9%) 1,000 mls @ 1,000 mls/hr IV BOLUS ONE Stop: 02/01/19 17:43 Last Admin: 02/01/19 17:11 Dose: Not Given Documented by: BLANE Methylprednisolone (Solu-Medrol 125 Mg Vial) 125 mg IV NOW ONE Stop: 02/01/19 16:27 Last Admin: 02/01/19 16:45 Dose: 125 mg Documented by: BLANE Vital Signs Vital signs: Vital Signs - 8 hr 02/01/19 16:05 02/01/19 16:24 02/01/19 17:30 Temperature 98.5 F Pulse Rate 123 H 99 H 113 H Respiratory Rate 28 H 20 20 Blood Pressure 157/99 H Blood Pressure [Right Arm] 157/101 H Pulse Oximetry 96 97 97 02/01/19 18:25 02/01/19 18:30 02/01/19 19:18 Temperature Pulse Rate 87 103 H 109 H Respiratory Rate 14 20 18 Blood Pressure Blood Pressure [Right Arm] 144/93 H 158/98 H Pulse Oximetry 99 98 98 <Yoandy Horton DO - Last Filed: 02/02/19 06:54> Orders Ordered: Discontinued Medications Albuterol (Ventolin) 2.5 mg INH NOW ONE Stop: 02/01/19 16:10 Last Admin: 02/01/19 16:15 Dose: 2.5 mg Documented by: PHILLY Albuterol/Ipratropium (Duoneb) 3 ml INH NOW ONE Stop: 02/01/19 16:07 Last Admin: 02/01/19 16:15 Dose: 3 ml Documented by: PHILLY Albuterol/Ipratropium (Duoneb) 3 ml INH NOW ONE Stop: 02/01/19 18:15 Last Admin: 02/01/19 18:19 Dose: 3 ml Documented by: PHILLY Sodium Chloride (Normal Saline 0.9%) 1,000 mls @ 1,000 mls/hr IV BOLUS ONE Stop: 02/01/19 17:42 Last Infusion: 02/01/19 18:40 Dose: 0 mls/hr Documented by: Admin: 02/01/19 16:46 Dose: 1,000 mls/hr Documented by: BLANE Sodium Chloride (Normal Saline 0.9%) 1,000 mls @ 1,000 mls/hr IV BOLUS ONE Stop: 02/01/19 17:43 Last Admin: 02/01/19 17:11 Dose: Not Given Documented by: BLANE Methylprednisolone (Solu-Medrol 125 Mg Vial) 125 mg IV NOW ONE Stop: 02/01/19 16:27 Last Admin: 02/01/19 16:45 Dose: 125 mg Documented by: BLANE Vital Signs Vital signs: Vital Signs - 8 hr 02/01/19 16:05 02/01/19 16:24 02/01/19 17:30 Temperature 98.5 F Pulse Rate 123 H 99 H 113 H Respiratory Rate 28 H 20 20 Blood Pressure 157/99 H Blood Pressure [Right Arm] 157/101 H Pulse Oximetry 96 97 97 02/01/19 18:25 02/01/19 18:30 02/01/19 19:18 Temperature Pulse Rate 87 103 H 109 H Respiratory Rate 14 20 18 Blood Pressure Blood Pressure [Right Arm] 144/93 H 158/98 H Pulse Oximetry 99 98 98 MDM - Asthma <GRISEL Rosen-BC - Last Filed: 02/01/19 19:30> Lab Data Result diagrams: 02/01/19 16:35 02/01/19 16:35 Labs: Lab Results 02/01/19 02/01/19 02/01/19 Range/Units 16:35 16:35 16:35 WBC 17.6 H (4.5-11.0) X10^3/uL RBC 4.60 (4.0-5.2) X10^6/uL Hgb 12.5 (12.0-16.0) g/dL Hct 38.2 (36-46) % MCV 83.1 (80-100) fL MCH 27.2 (26-34) PG MCHC 32.8 (30-36) % RDW 14.7 (11.6-14.8) % Plt Count 293 (150-400) X10^3/uL Neut % (Auto) 95.7 H (50-75) % Lymph % (Auto) 3.1 L (25-40) % [place] % (Auto) 1.1 L (3-14) % Eos % (Auto) 0.0 L (2-4) % Baso % (Auto) 0.1 (0-2) % Neut # (Auto) 33250 H (5331-4985) /uL Lymph # (Auto) 500 L (8408-2383) /uL [place] # (Auto) 200 (0-900) /uL Eos # (Auto) 0 (0-450) /uL Baso # (Auto) 0 (0-100) /uL PT (10.1-12.7) SECONDS INR (0.9-1.3) APTT (26.4-36.2) SECONDS D-Dimer 2264 H (<230) ng/mL Sodium 141 (137-145) mmol/L Potassium 3.5 (3.4-5.1) mmol/L Chloride 107 (98-107) mmol/L Carbon Dioxide 19 L (22-32) mmol/L BUN 9 (7-17) mg/dL Creatinine 0.70 (0.52-1.04) mg/dL Estimated GFR > 60.0 (>60) mL/min BUN/Creatinine Ratio 12.9 (6-22) Glucose 154 H (70-100) mg/dL Calcium 10.1 (8.4-10.2) mg/dL Total Bilirubin 0.4 (0.2-1.3) mg/dL AST 31 (14-36) IU/L ALT 11 (9-52) IU/L Alkaline Phosphatase 75 (38-126) U/L Total Protein 7.8 (6.3-8.2) g/dL Albumin 4.6 (3.5-5.0) g/dL Globulin 3.2 (1.7-4.1) g/dL Albumin/Globulin Ratio 1.4 (1.0-2.8) Urine RBC (0-5/HPF) Urine WBC (0-5/HPF) Urine Bacteria (None) Ur Culture Indicated? 02/01/19 02/01/19 Range/Units 16:35 16:50 WBC (4.5-11.0) X10^3/uL RBC (4.0-5.2) X10^6/uL Hgb (12.0-16.0) g/dL Hct (36-46) % MCV (80-100) fL MCH (26-34) PG MCHC (30-36) % RDW (11.6-14.8) % Plt Count (150-400) X10^3/uL Neut % (Auto) (50-75) % Lymph % (Auto) (25-40) % [place] % (Auto) (3-14) % Eos % (Auto) (2-4) % Baso % (Auto) (0-2) % Neut # (Auto) (1018-7516) /uL Lymph # (Auto) (3785-6228) /uL [place] # (Auto) (0-900) /uL Eos # (Auto) (0-450) /uL Baso # (Auto) (0-100) /uL PT 11.1 (10.1-12.7) SECONDS INR 1.0 (0.9-1.3) APTT 27 (26.4-36.2) SECONDS D-Dimer (<230) ng/mL Sodium (137-145) mmol/L Potassium (3.4-5.1) mmol/L Chloride (98-107) mmol/L Carbon Dioxide (22-32) mmol/L BUN (7-17) mg/dL Creatinine (0.52-1.04) mg/dL Estimated GFR (>60) mL/min BUN/Creatinine Ratio (6-22) Glucose (70-100) mg/dL Calcium (8.4-10.2) mg/dL Total Bilirubin (0.2-1.3) mg/dL AST (14-36) IU/L ALT (9-52) IU/L Alkaline Phosphatase (38-126) U/L Total Protein (6.3-8.2) g/dL Albumin (3.5-5.0) g/dL Globulin (1.7-4.1) g/dL Albumin/Globulin Ratio (1.0-2.8) Urine RBC 1-5/hpf (0-5/HPF) Urine WBC None seen (0-5/HPF) Urine Bacteria None seen (None) Ur Culture Indicated? Cult not indicated Point of Care Testing Test Results Negative Urine Dip Bedside Urine Glucose Negative Bedside Urine Bilirubin - Negative Bedside Urine Ketone +/- 5 Urine Specific Kiester 1.020 Bedside Urine Occult Blood ++ Bedside Urine pH 5.5 Bedside Urine Protein +/- 15 Bedside Urine Urobilinogen - Negative Bedside Urine Nitrite - Negative Bedside Urine Leukocytes - Negative Esterase Imaging Data Chest x-ray: Radiologist's impression: [address] [address] [address] Scan Report Signed Patient: Sparkle Kemp [facility]#: [id number] : 1975Acct:[id number] Age/Sex: 44 / FDate of Service: 02/01/19 Loc: ED Accession Number: [id number] Procedure: CT angio chest PE protocol Ordering Provider: Amy Rangel PROCEDURE: CT ANGIO CHEST PE PROTOCOL INDICATIONS: post op, shortness of breath, tachy TECHNIQUE: After the administration of intravenous contrast, 2 mm thick sections acquired from the pulmonary apices to the posterior costophrenic angles. 3-dimensional maximum intensity projection (MIP) coronal and sagittal reformats were then acquired through the thorax. For radiation dose reduction, the following was used: automated exposure control, adjustment of mA and/or kV according to patient size. COMPARISON: None. FINDINGS: Image quality: Excellent. Pulmonary arteries: Pulmonary arteries are normal in size, and demonstrate no intraluminal filling defects to suggest central pulmonary embolism. Lungs and pleura: Lungs are clear. No pleural effusions or pneumothorax. Central and peripheral airways are patent. Mediastinum: Heart size is normal, without pericardial effusion. No mediastinal or hilar adenopathy. Thoracic aorta is normal in caliber and enhancement. Esophagus is normal in caliber, without hiatal hernia. Bones and chest wall: No suspicious bony lesions. Ribs and thoracic spine appear intact throughout. Thyroid gland is unremarkable. No axillary or supraclavicular adenopathy. Abdomen: Visualized upper abdominal solid organs appear normal in the early arterial phase of enhancement. IMPRESSION: 1. No acute pulmonary embolus. Chest CTA: Radiologist's impression: [address] [address] XRay Report Signed Patient: Sparkle Kemp [facility]#: [id number] : 1975Acct:[id number] Age/Sex: 44 / FDate of Service: 02/01/19 Loc: ED Accession Number: [id number] Procedure: XR chest 2V Ordering Provider: Amy Rangel PROCEDURE: XR CHEST 2V INDICATIONS: shortness of breath TECHNIQUE: 2 views of the chest were acquired. COMPARISON: [facility], CHEST 2 VIEW, 08/25/2011, 11:51. FINDINGS: Surgical changes and devices: None. Lungs and pleura: Lungs are clear. No pleural effusions or pneumothorax. Mediastinum: Mediastinal contours are normal. Heart size is normal. Bones and chest wall: No suspicious bony abnormalities. Soft tissues appear unremarkable. IMPRESSION: No acute cardiopulmonary findings. Dictated by: Dary Zamudio M.D. on 02/01/2019 at 17:35 Approved by: Dary Zamudio M.D. on 02/01/2019 at 17:36 MDM Narrative Medical decision making narrative: The patient is a 44-year-old female who presents with a chief complaint of asthma. Her x-ray shows no acute pneumonia but she has slight leukocytosis at 17. This may be a stress response. Given her recent surgery, I did obtain a D-dimer which was positive. Thus I did obtain a CT to evaluate for PE, which came back negative. She has no clinical indications of DVT. She was treated in the emergency department steroids as well as nebulizers. She felt much improved, was able to ambulate afterwards. She stated she wanted to go home. I did place her on burst of steroids and give her prescription of duo nebs. We discussed that she needs to stop smoking. Encourage PCP follow-up. Discussed come back to the emergency department for any acute concerns such as increased shortness of breath etc. No questions or concerns upon discharge. Patient states understanding of follow-up precautions as as return precautions. <Yoandy Horton, DO - Last Filed: 02/02/19 06:54> Lab Data Labs: Lab Results 02/01/19 02/01/19 02/01/19 Range/Units 16:35 16:35 16:35 WBC 17.6 H (4.5-11.0) X10^3/uL RBC 4.60 (4.0-5.2) X10^6/uL Hgb 12.5 (12.0-16.0) g/dL Hct 38.2 (36-46) % MCV 83.1 (80-100) fL MCH 27.2 (26-34) PG MCHC 32.8 (30-36) % RDW 14.7 (11.6-14.8) % Plt Count 293 (150-400) X10^3/uL Neut % (Auto) 95.7 H (50-75) % Lymph % (Auto) 3.1 L (25-40) % [place] % (Auto) 1.1 L (3-14) % Eos % (Auto) 0.0 L (2-4) % Baso % (Auto) 0.1 (0-2) % Neut # (Auto) 28320 H (6151-7600) /uL Lymph # (Auto) 500 L (9922-2045) /uL [place] # (Auto) 200 (0-900) /uL Eos # (Auto) 0 (0-450) /uL Baso # (Auto) 0 (0-100) /uL PT (10.1-12.7) SECONDS INR (0.9-1.3) APTT (26.4-36.2) SECONDS D-Dimer 2264 H (<230) ng/mL Sodium 141 (137-145) mmol/L Potassium 3.5 (3.4-5.1) mmol/L Chloride 107 (98-107) mmol/L Carbon Dioxide 19 L (22-32) mmol/L BUN 9 (7-17) mg/dL Creatinine 0.70 (0.52-1.04) mg/dL Estimated GFR > 60.0 (>60) mL/min BUN/Creatinine Ratio 12.9 (6-22) Glucose 154 H (70-100) mg/dL Calcium 10.1 (8.4-10.2) mg/dL Total Bilirubin 0.4 (0.2-1.3) mg/dL AST 31 (14-36) IU/L ALT 11 (9-52) IU/L Alkaline Phosphatase 75 (38-126) U/L Total Protein 7.8 (6.3-8.2) g/dL Albumin 4.6 (3.5-5.0) g/dL Globulin 3.2 (1.7-4.1) g/dL Albumin/Globulin Ratio 1.4 (1.0-2.8) Urine RBC (0-5/HPF) Urine WBC (0-5/HPF) Urine Bacteria (None) Ur Culture Indicated? 02/01/19 02/01/19 Range/Units 16:35 16:50 WBC (4.5-11.0) X10^3/uL RBC (4.0-5.2) X10^6/uL Hgb (12.0-16.0) g/dL Hct (36-46) % MCV (80-100) fL MCH (26-34) PG MCHC (30-36) % RDW (11.6-14.8) % Plt Count (150-400) X10^3/uL Neut % (Auto) (50-75) % Lymph % (Auto) (25-40) % [place] % (Auto) (3-14) % Eos % (Auto) (2-4) % Baso % (Auto) (0-2) % Neut # (Auto) (8817-3393) /uL Lymph # (Auto) (3656-6896) /uL [place] # (Auto) (0-900) /uL Eos # (Auto) (0-450) /uL Baso # (Auto) (0-100) /uL PT 11.1 (10.1-12.7) SECONDS INR 1.0 (0.9-1.3) APTT 27 (26.4-36.2) SECONDS D-Dimer (<230) ng/mL Sodium (137-145) mmol/L Potassium (3.4-5.1) mmol/L Chloride (98-107) mmol/L Carbon Dioxide (22-32) mmol/L BUN (7-17) mg/dL Creatinine (0.52-1.04) mg/dL Estimated GFR (>60) mL/min BUN/Creatinine Ratio (6-22) Glucose (70-100) mg/dL Calcium (8.4-10.2) mg/dL Total Bilirubin (0.2-1.3) mg/dL AST (14-36) IU/L ALT (9-52) IU/L Alkaline Phosphatase (38-126) U/L Total Protein (6.3-8.2) g/dL Albumin (3.5-5.0) g/dL Globulin (1.7-4.1) g/dL Albumin/Globulin Ratio (1.0-2.8) Urine RBC 1-5/hpf (0-5/HPF) Urine WBC None seen (0-5/HPF) Urine Bacteria None seen (None) Ur Culture Indicated? Cult not indicated Point of Care Testing Test Results Negative Urine Dip Bedside Urine Glucose Negative Bedside Urine Bilirubin - Negative Bedside Urine Ketone +/- 5 Urine Specific [place] 1.020 Bedside Urine Occult Blood ++ Bedside Urine pH 5.5 Bedside Urine Protein +/- 15 Bedside Urine Urobilinogen - Negative Bedside Urine Nitrite - Negative Bedside Urine Leukocytes - Negative Esterase Discharge Plan Departure Patient Disposition: Home Clinical Impression: Asthma with acute exacerbation Qualifiers: Asthma severity: unspecified severity Asthma persistence: unspecified Qualified Code(s): J45.901 - Unspecified asthma with (acute) exacerbation Discharge Date/Time: 02/01/19 19:28 Instructions: DI for Asthma -- Adult Activity Restrictions/Additional Instructions: I have given you another prescription of steroids. Please start this tomorrow. I have given you a prescription of a different nebulizer solution Please follow up with primary care provider. Please come back to the emergency department for any acute concerns such as severe shortness of breath etc Please rest over the next few days. Decreased exposures to allergens, smoke etc Prescriptions: New ipratropium-albuterol 0.5 mg-3 mg(2.5 mg base)/3 mL solution for nebulization 3 ml INHALATION Q4-6H PRN (Reason: shortness of breath or wheezing) Qty: 90 RF: 0 prednisone 50 mg tablet 50 mg PO BID Qty: 5 RF: 0 No Action losartan 50 MG tablet 50 mg PO QDAY Qty: 30 RF: 3 citalopram 20 MG tablet 10 mg PO QPM Qty: 0 RF: 0 norgestimate-ethinyl estradiol [Estarylla] 0.25-35 mg-mcg tablet 1 tab PO DAILY Qty: 28 RF: 11 ondansetron 4 mg tablet,disintegrating 4 mg PO TID-QID PRN (Reason: nausea and vomiting) Qty: 10 RF: 0 oxycodone 5 mg Tablet 5 mg PO Q4HR PRN (Reason: Pain, Moderate (4-6)) Qty: 40 RF: 0 hydroxyzine pamoate 25 mg Capsule 25 mg PO Q4HR PRN (Reason: Nausea) Qty: 40 RF: 0 albuterol sulfate 90 mcg/actuation HFA aerosol inhaler 2 puff Inhalation Q4H PRN (Reason: Shortness Of Breath) RF: 0 Referrals: True Caicedo MD [Primary Care Provider] - <Yoandy Horton DO - Last Filed: 02/02/19 06:54> Sign Out Provider Sign Out Attestation: I was available for consultation during this patient's emergency department encounter
== END 2019-02-01 19:28 | disposition home or self-care (01) ==
PROVIDERS: Emergency Provider Nurse Practitioner Family; PCP Specialist
DX: J45.901 Unspecified asthma with (acute) exacerbation (principal)
CPT/HCPCS: 36415; 71046; 71275; 80053; 81003; 81015; 81025; 85025; 85379; 85610; 85730; 94150; 94640; 96374; 99283; 99284; 99406; J2930; J7613; Q9967

== ENCOUNTER → 2020-02-17 09:05 | Outpatient (CLI) | payer BC, SELFPAY | PROVIDERS: PCP Specialist; Visit Provider Physician Assistant | DX: R10.31 Right lower quadrant pain (principal) | CPT/HCPCS: 87086 ==

== ENCOUNTER 2020-02-17 09:09 | Emergency (ER) | payer BC, SELFPAY ==
[2020-02-17 09:34] VITALS: BP 132/92; PULSE 77; RESP 16; TEMP 36.7; O2SAT 99; BMI 25.5
[2020-02-17 09:44] LABS: Add Manual Diff / Slide Review NO; Basophils Absolute Auto 0 /uL (0-100); Basophils Percent Auto 0.5 % (0-2); Eosinophils Absolute Auto 300 /uL (0-450); Eosinophils Percent Auto 3.2 % (2-4); Hematocrit 38.6 % (36-46); Hemoglobin 12.9 g/dL (12.0-16.0); Lymphocytes Absolute Auto 2600 /uL (1100-4500); Mean Corpuscular HGB Conc 33.4 % (30-36); Mean Corpuscular Hemoglobin 29.2 PG (26-34); Mean Corpuscular Volume 87.6 fL (80-100); Monocytes Absolute Auto 400 /uL (0-900); Monocytes Percent Auto 4.7 % (3-14); Neutrophils Absolute Auto 5700 /uL (1500-7000); Neutrophils Percent Auto 62.6 % (50-75); Platelet Count 227 X10^3/uL (150-400); Red Blood Cell Count 4.41 X10^6/uL (4.0-5.2); Red Cell Distribution Width 13.7 % (11.6-14.8); White Blood Cell Count 9.1 X10^3/uL (4.5-11.0)
[2020-02-17 09:47] LABS: Prothrombin Time 11.1 SECONDS (10.1-12.7)
[2020-02-17 09:49] LABS: PTT Partial Thromboplastin Tim 29 SECONDS (26.4-36.2)
[2020-02-17 09:51] LABS: Alanine Aminotransferase 12 IU/L (<35); Albumin 4.2 g/dL (3.5-5.0); Albumin Globulin Ratio 1.4 (1.0-2.8); Alkaline Phosphatase 58 U/L (38-126); Aspartate Aminotransferase 21 IU/L (14-36); Bilirubin Total 0.5 mg/dL (0.2-1.3); Blood Urea Nitrogen 13 mg/dL (7-17); Calcium 9.3 mg/dL (8.4-10.2); Carbon Dioxide 29 mmol/L (22-32); Chloride 104 mmol/L (98-107); Estimated Glomerular Filt Rate > 60.0 mL/min (>60); Glucose 92 mg/dL (70-100); HEMOLYSIS < 15 (0-50); Lipase 75 U/L (23-300); Potassium 4.4 mmol/L (3.4-5.1); Sodium 138 mmol/L (137-145); Total Protein 7.2 g/dL (6.3-8.2)
--- NOTE | 2020-02-17 10:37 | ED_ITS ---
HPI - Abdominal Pain General Chief Complaint: Abdominal Pain Stated Complaint: SENT BY [facility], R SIDE ABDOMINAL & BACK PAIN Time Seen by Provider: 02/17/20 10:09 Source: patient Mode of arrival: Family Vehicle Limitations: no limitations History of Present Illness HPI narrative: This is a 45-year-old female who comes to the emergency department with complaint of back pain for 5 weeks that is localized to the right flank. She has had right lower abdominal pain for the last 5 or 6 days. She has been vomiting once in the morning usually around 830 for the past week. She has had some nausea but not throughout the day. She has had some mild diarrhea, no black or bloody stools. She has felt very bloated in the evenings. She has not had any urinary symptoms no frequency, dysuria urgency. No vaginal bleeding or discharge. She has not had any fevers, no chest pain or shortness of breath or upper respiratory symptoms. She states she has been to the chiropractor several times without resolution of her back pain. She attributed the back pain to getting knocked over by her dog. Patient did try CBD and ibu profen last night which was helpful. She went to the walk-in clinic had a negative test and urine that showed hematuria with no other changes. She does have asthma and was recently started on montelukast and uses ProAir. She has a shellfish allergy which states is often swelling of the lips or tongue but that she has had contrast in CT scans without any issue. Related Data Home Medications Medication Instructions Recorded Confirmed citalopram 10 mg PO QPM #0 05/11/17 02/17/20 albuterol sulfate 2 puff INHALATION Q4H PRN 09/23/17 02/17/20 beclomethasone dipropionate 80 mcg INHALATION 05/21/19 02/17/20 mcg/actuation aerosol inhaler Previous Rx's Medication Instructions Recorded losartan 50 mg PO QDAY #30 tab 02/10/16 ipratropium-albuterol 3 ml INHALATION Q4-6H PRN #90 ml 02/01/19 norgestimate 0.25 mg-ethinyl See Rx Instructions .ROUTE 09/07/19 estradiol 35 mcg tablet .COMPLEX #84 tab dicyclomine 10 mg PO TID PRN #10 cap 02/17/20 Allergies Allergy/AdvReac Type Severity Reaction Status Date / Time shellfish derived Allergy Severe Difficulty Verified 02/17/20 09:46 Breathing loratadine [LORATADINE] Allergy Unknown Verified 02/17/20 09:46 ethinyl estradiol AdvReac Mild Nausea Verified 02/17/20 09:46 [From Sprintec (28)] (been several years since taken) norgestimate AdvReac Mild Nausea Verified 02/17/20 09:46 [From Sprintec (28)] (been several years since taken) Review of Systems Review of Systems ROS Unobtainable: All systems reviewed & are unremarkable except as noted in HPI and below Patient History Medical History (Updated 02/17/20 @ 11:56 by Amy Whatley DO) Ankle fracture, left (Acute 12/15/18) Asthma (Acute) Fibroids (Acute) HTN (hypertension) (Acute) Ovarian cyst (Acute) Surgical History History of third molar tooth extraction Family History (Updated 05/21/19 @ 16:55 by Benny Doran MD) Mother Cancer Social History household members: significant other Smoking Status: Never smoker Smoking Status: Never smoker alcohol intake frequency: a few times a week Substance Use Type: marijuana Exam Narrative Exam Narrative: GENERAL: Alert and oriented x three, well-nourished female in mild distress. HEENT: Head normocephalic, atraumatic, EOMI, pupils reactive, face symmetric, moist mucous membranes NECK: Supple, full range of motion CARDIOVASCULAR: Regular rate and rhythm without murmurs, rubs or gallops. RESPIRATORY: Breath sounds equal bilaterally, no wheezes rales or rhonchi. ABDOMEN: Soft, mild right lower quadrant tenderness. Normoactive bowel sounds all 4 quadrants. No guarding or rebound, rigidity, no mass : No CVA tenderness BACK: No cervical, thoracic or lumbar vertebral point tenderness. Patient has normal range of motion. Patient's gait is normal. Rectal exam is deferred. Muscle strength is 5/5 in lower extremities, DTRs are 2/4 and lower extremities. Sensation is intact in the lower extremities. Unable to reproduce pain in the patient's back. No rashes or skin changes. EXTREMITIES: Normal range of motion, no clubbing or edema. Neurovascularly intact NEUROLOGICAL: Cranial nerves II through XII grossly intact. Moving all extremities SKIN: Warm, dry, no petechiae, no rashes or lesions. Initial Vital Signs Initial Vital Signs: Vital Signs Temperature 98.1 F 02/17/20 09:34 Pulse Rate 77 02/17/20 09:34 Respiratory Rate 16 02/17/20 09:34 Blood Pressure 132/92 H 02/17/20 09:34 Pulse Oximetry 99 02/17/20 09:34 Course Orders Ordered: ED Orders 02/17/20 09:25 Complete Blood Count AUTO DIFF Stat Comprehensive Metabolic Panel Stat Lipase Stat Partial Thromboplastin Time Stat Prothrombin Time INR Stat 02/17/20 10:40 CT abdomen pelvis w con Stat Vital Signs Vital signs: Vital Signs - 8 hr 02/17/20 11:05 02/17/20 12:16 Pulse Rate 66 62 Respiratory Rate 18 18 Blood Pressure 117/74 128/76 Pulse Oximetry 100 100 MDM - Abdominal Pain Lab Data Attestation: I reviewed the patient's lab results. Lab results narrative: Labs show no major abnormalities. HCG is negative along with a negative urine except for hematuria. Result diagrams: 02/17/20 09:25 02/17/20 09:25 Labs: Lab Results 02/17/20 02/17/20 02/17/20 Range/Units 09:25 09:25 09:25 WBC 9.1 (4.5-11.0) X10^3/uL RBC 4.41 (4.0-5.2) X10^6/uL Hgb 12.9 (12.0-16.0) g/dL Hct 38.6 (36-46) % MCV 87.6 (80-100) fL MCH 29.2 (26-34) PG MCHC 33.4 (30-36) % RDW 13.7 (11.6-14.8) % Plt Count 227 (150-400) X10^3/uL Neut % (Auto) 62.6 (50-75) % Lymph % (Auto) 29.0 (25-40) % Cameron % (Auto) 4.7 (3-14) % Eos % (Auto) 3.2 (2-4) % Baso % (Auto) 0.5 (0-2) % Neut # (Auto) 5700 (7734-1244) /uL Lymph # (Auto) 2600 (1901-2998) /uL Cameron # (Auto) 400 (0-900) /uL Eos # (Auto) 300 (0-450) /uL Baso # (Auto) 0 (0-100) /uL PT 11.1 (10.1-12.7) SECONDS INR 1.0 (0.9-1.3) APTT 29 D (26.4-36.2) SECONDS Sodium 138 (137-145) mmol/L Potassium 4.4 (3.4-5.1) mmol/L Chloride 104 (98-107) mmol/L Carbon Dioxide 29 (22-32) mmol/L BUN 13 (7-17) mg/dL Creatinine 0.93 (0.52-1.04) mg/dL Estimated GFR > 60.0 (>60) mL/min BUN/Creatinine Ratio 14.0 (6-22) Glucose 92 (70-100) mg/dL Calcium 9.3 (8.4-10.2) mg/dL Total Bilirubin 0.5 (0.2-1.3) mg/dL AST 21 (14-36) IU/L ALT 12 (<35) IU/L Alkaline Phosphatase 58 (38-126) U/L Total Protein 7.2 (6.3-8.2) g/dL Albumin 4.2 (3.5-5.0) g/dL Globulin 3.0 (1.7-4.1) g/dL Albumin/Globulin Ratio 1.4 (1.0-2.8) Lipase 75 (23-300) U/L Imaging Data CT scan - abdomen/pelvis: Radiologist's Impression: [place] [address] CT Scan Report Signed Patient: Sparkle Kemp [facility]#: [id number] : 1975Acct:[id number] Age/Sex: 45 / FDate of Service: 02/17/20 Loc: ED Accession Number: [id number] Procedure: CT abdomen pelvis w con Ordering Provider: Amy Whatley D.O. PROCEDURE: CT ABDOMEN PELVIS W CON INDICATIONS: RLQ 1 wk and right flank pain 5 wks TECHNIQUE: After the administration of intravenous contrast, 5 mm thick sections acquired from the diaphragm to the symphysis. 5 mm coronal and sagittal reformats were acquired. For radiation dose reduction, the following was used: automated exposure control, adjustment of mA and/or kV according to patient size. COMPARISON: [facility], CT, CT ABDOMEN PELVIS W CON, 09/23/2017, 15:51. FINDINGS: Image quality: Excellent. ABDOMEN: Lung bases: Lung bases are clear. Heart size is normal. Solid organs: 2 hypoattenuating lesions are redemonstrated within the liver, in segment 8 measuring up to approximately 1.3 x 1.2 cm and in the caudate lobe measuring approximately 1.5 x 1.3 cm. These likely represent hemangiomas. Although there is slight increase in size compared to the prior study, this may be due in part to differences in the phase of enhancement. The gallbladder appears within normal limits without calcified gallstones. Biliary system is non-dilated. Pancreas enhances normally. No peripancreatic fat stranding or fluid collections. No pancreatic duct dilatation. The spleen is normal in size. No adrenal nodules. Kidneys demonstrate no hydronephrosis. Peritoneum and bowel: Bowel loops demonstrate normal wall thickness and caliber. No evidence of appendicitis. No free fluid or air. Nodes and vessels: No retroperitoneal or mesenteric adenopathy by size criteria. Aorta and inferior vena cava are normal in size. Miscellaneous: No ventral hernias. PELVIS: Genitourinary: Bladder wall thickness is normal. The uterus is enlarged with multiple enhancing masses consistent with multiple fibroids. Ovaries appear within normal size limits. There is a left pelvic cyst measuring up to approximately 1.8 cm which appears unchanged from the prior study and is suggestive of a paraovarian cyst. Miscellaneous: No inguinal hernias or adenopathy. Bones: No suspicious bony lesions. No vertebral body compression fractures. IMPRESSION: 1. No definite acute intra-abdominal abnormality. Specifically, no evidence of acute appendicitis. 2. Enlarged uterus with multiple uterine fibroids demonstrated. 3. 2 hypodense attenuating lesions within the liver redemonstrated suggestive of hemangiomas. Although these appear increased in size compared to the prior study, the differences may be due in part to different phase of enhancement. If clinically indicated, a liver protocol MRI or CT may be performed for further carlo racterization. Dictated by: Washington Clark M.D. on 02/17/2020 at 10:23 Approved by: Washington Clark M.D. on 02/17/2020 at 10:27 [place] Narrative Medical decision making narrative: Patient comes in with complaint of back and abdominal pain. Labs show normal CBC with normal CMP and LFTs today showed blood but no nitrates or leukocyte esterase, patient's hCG was negative. CT abdomen was pelvis was obtained as patient has had prolonged course of symptoms with 5 weeks of right flank pain and several days of right lower quadrant pain. No obvious signs of appendicitis were noted. Patient uterus has multiple enhancing masses consistent with multiple fibroids there was a left pelvic cyst noted which is unchanged from prior study. Patient also has 2 lesions in the liver that likely represent hemangiomas although there was a slight increase in size from prior study in 2018 but Radiology felt this could be due in part to differences in phase of enhancement. Patient's pain has been mild she defers any medication here. Plan for course of [id number] NSAIDs and/or Tylenol. Patient is to follow up with primary care for recheck of her liver lesions and evaluation of her fibroids as these may be causing some of her right lower quadrant pain. It was noted she had elevated D-dimer on a prior visit they had CT of the chest which was negative for PE at that time but I would encourage patient to follow up with the for additional imaging of MRI or CT of the liver lesions. Discussed all these findings with the patient as well as her elevated D-dimer in the past. Discussed that these may be benign findings but I would recommend imaging to further evaluate with her recent symptoms. She does have a primary care physician she can follow-up and feels comfortable at this time. We discussed return precautions. She states she has had a lot of gas and felt bloated she did not find Gas-X or simethicone helpful. Discussed we can try Bentyl and see if it is helpful for the short term. Discharge Plan Departure Patient Disposition: Home Clinical Impression: Abdominal pain, Flank pain Discharge Date/Time: 02/17/20 12:17 Instructions: DI for Abdominal Pain-Adult Activity Restrictions/Additional Instructions: Follow-up with primary care regarding your abdominal and back pain. Today her labs did not show any major lab abnormalities, you did have a elevated D-dimer on her last visit in January of 2019. Imaging today shows what appeared to be multiple fibroids in the uterus as well as 2 lesions in the liver which are slightly increased in size, these are likely hemangiomas but it is recommended to have repeat imaging as a MRI or CT protocol of the liver. Follow-up with her primary care physician to discuss an obtain these images. Your abdominal pain may be related to your fibroids or hemangiomas but could potentially be secondary to a different cause. I would recommend continuing ibuprofen up to 800 mg every 8 hours and/or Tylenol up to a 1000 mg every 8 hours as needed for pain. You may take 1 tablet every 8 hours as needed for pain. Your urine did show some hematuria, it was sent for urine culture this takes 48- 72 hours to result. If it is positive you will receive a phone call discharged on antibiotics. Return to the ER for fevers greater 100.4 F, rapidly worsening abdominal or back pain, lightheadedness, passing out, persistent vomiting, black or bloody stools, difficulties with urination or other new or concerning symptoms. Prescriptions: New dicyclomine 10 mg capsule 10 mg PO TID PRN (Reason: abdominal pain) Qty: 10 RF: 0 No Action losartan 50 MG tablet 50 mg PO QDAY Qty: 30 RF: 3 citalopram 20 MG tablet 10 mg PO QPM Qty: 0 RF: 0 norgestimate-ethinyl estradiol [Estarylla] 0.25-35 mg-mcg tablet See Rx Instructions .ROUTE .COMPLEX Qty: 84 RF: 3 beclomethasone dipropionate 80 mcg/actuation aerosol INHALATION RF: 0 ipratropium-albuterol 0.5 mg-3 mg(2.5 mg base)/3 mL solution for nebulization 3 ml INHALATION Q4-6H PRN (Reason: shortness of breath or wheezing) Qty: 90 RF: 0 albuterol sulfate 90 mcg/actuation HFA aerosol inhaler 2 puff Inhalation Q4H PRN (Reason: Shortness Of Breath) RF: 0 Referrals: Reginald García MD [Primary Care Provider] -
--- NOTE | 2020-02-17 10:40 | DI.CT.S_ITS ---
PROCEDURE: CT ABDOMEN PELVIS W CON INDICATIONS: RLQ 1 wk and right flank pain 5 wks TECHNIQUE: After the administration of intravenous contrast, 5 mm thick sections acquired from the diaphragm to the symphysis. 5 mm coronal and sagittal reformats were acquired. For radiation dose reduction, the following was used: automated exposure control, adjustment of mA and/or kV according to patient size. COMPARISON: [facility], CT, CT ABDOMEN PELVIS W CON, 09/23/2017, 15:51. FINDINGS: Image quality: Excellent. ABDOMEN: Lung bases: Lung bases are clear. Heart size is normal. Solid organs: 2 hypoattenuating lesions are redemonstrated within the liver, in segment 8 measuring up to approximately 1.3 x 1.2 cm and in the caudate lobe measuring approximately 1.5 x 1.3 cm. These likely represent hemangiomas. Although there is slight increase in size compared to the prior study, this may be due in part to differences in the phase of enhancement. The gallbladder appears within normal limits without calcified gallstones. Biliary system is non-dilated. Pancreas enhances normally. No peripancreatic fat stranding or fluid collections. No pancreatic duct dilatation. The spleen is normal in size. No adrenal nodules. Kidneys demonstrate no hydronephrosis. Peritoneum and bowel: Bowel loops demonstrate normal wall thickness and caliber. No evidence of appendicitis. No free fluid or air. Nodes and vessels: No retroperitoneal or mesenteric adenopathy by size criteria. Aorta and inferior vena cava are normal in size. Miscellaneous: No ventral hernias. PELVIS: Genitourinary: Bladder wall thickness is normal. The uterus is enlarged with multiple enhancing masses consistent with multiple fibroids. Ovaries appear within normal size limits. There is a left pelvic cyst measuring up to approximately 1.8 cm which appears unchanged from the prior study and is suggestive of a paraovarian cyst. Miscellaneous: No inguinal hernias or adenopathy. Bones: No suspicious bony lesions. No vertebral body compression fractures. IMPRESSION: 1. No definite acute intra-abdominal abnormality. Specifically, no evidence of acute appendicitis. 2. Enlarged uterus with multiple uterine fibroids demonstrated. 3. 2 hypodense attenuating lesions within the liver redemonstrated suggestive of hemangiomas. Although these appear increased in size compared to the prior study, the differences may be due in part to different phase of enhancement. If clinically indicated, a liver protocol MRI or CT may be performed for further characterization. Dictated by: Washington Clark M.D. on 02/17/2020 at 10:23 Approved by: Washington Clark M.D. on 02/17/2020 at 10:27
[2020-02-17 11:05] VITALS: BP 117/74; PULSE 66; RESP 18; O2SAT 100
[2020-02-17 12:16] VITALS: BP 128/76; PULSE 62; RESP 18; O2SAT 100
== END 2020-02-17 12:17 | disposition home or self-care (01) ==
PROVIDERS: Emergency Provider Emergency Medicine; PCP Family Medicine
DX: R10.9 Unspecified abdominal pain (principal); R79.89 Other specified abnormal findings of blood chemistry; M54.9 Dorsalgia, unspecified; R10.31 Right lower quadrant pain
CPT/HCPCS: 36415; 74177; 80053; 83690; 85025; 85610; 85730; 87077; 87086; 99284; Q9967

== ENCOUNTER → 2020-04-24 15:12 | Outpatient (CLI) | payer BC, SELFPAY ==
[2020-04-24 15:52] LABS: COVID19 -Nasal RAPID Negative (Negative)
== END ==
PROVIDERS: PCP Family Medicine; Visit Provider Obstetrics & Gynecology
DX: Z01.812 Encounter for preprocedural laboratory examination (principal); Z20.828 Contact with and (suspected) exposure to other viral communicable diseases
CPT/HCPCS: 87635

== ENCOUNTER 2020-04-25 09:33 | Day surgery (SDC) | payer BC, SELFPAY ==
[2020-04-23 15:18] VITALS: BMI 26.1
[2020-04-25] VITALS (11 sets, daily range): BP systolic 87–152; BP diastolic 38–91; PULSE 75–99; RESP 13–24; TEMP 35.8–37.4; O2SAT 94–97; BMI 26.1
--- NOTE | 2020-04-25 10:08 | PM.PREOP ---
Pre-operative Note COVID-19 COVID-19 status: Negative Result date/Date tested (Pos, Neg/Pending): 04/24/20 Interval Note History & Physical reviewed/Exam performed by Physician: Yes Changes to H&P: No
[2020-04-25 10:20] LABS: Add Manual Diff / Slide Review NO; Basophils Absolute Auto 100 /uL (0-100); Eosinophils Absolute Auto 300 /uL (0-450); Eosinophils Percent Auto 2.3 % (2-4); Hematocrit 38.1 % (36-46); Hemoglobin 12.5 g/dL (12.0-16.0); Lymphocytes Absolute Auto 2900 /uL (1100-4500); Mean Corpuscular HGB Conc 32.8 % (30-36); Mean Corpuscular Hemoglobin 28.7 PG (26-34); Mean Corpuscular Volume 87.6 fL (80-100); Monocytes Absolute Auto 400 /uL (0-900); Neutrophils Absolute Auto 7300 /uL (1500-7000); Neutrophils Percent Auto 66.7 % (50-75); Platelet Count 247 X10^3/uL (150-400); Red Blood Cell Count 4.35 X10^6/uL (4.0-5.2); Red Cell Distribution Width 13.6 % (11.6-14.8)
[2020-04-25] MEDS: LACTATED RINGERS 1,000 ML 42 ML IV ×2 (10:20→12:23)
--- NOTE | 2020-04-25 10:27 | SUR.PREOP ---
Lab here to draw blood, pt with blood band now on.
[2020-04-25 10:31] LABS: BUN Creatinine Ratio 14.1 (6-22); Blood Urea Nitrogen 11 mg/dL (7-17); Calcium 8.7 mg/dL (8.4-10.2); Carbon Dioxide 23 mmol/L (22-32); Chloride 106 mmol/L (98-107); Estimated Glomerular Filt Rate > 60.0 mL/min (>60); Glucose 92 mg/dL (70-100); HEMOLYSIS < 15 (0-50); Sodium 135 mmol/L (137-145)
[2020-04-25] MEDS: CEFAZOLIN 2 GM/100 ML FROZ.PIGGY IV (10:40)
--- NOTE | 2020-04-25 11:06 | SUR.OPER ---
Lithotomy on padded OR bed. [place] Pad Positioner under torso. Head on pillow, arms padded and tucked at sides. Legs secured in padded yellow fins stirrups.
[2020-04-25] MEDS: ROPIVACAINE 0.2% PF 2 MG/ML 10ML AMP 10 ML INJ (11:19)
[2020-04-25] MEDS: BUPIVACAINE 0.25% W/ EPI (PF) 10 ML VIAL 20 ML INJ (11:20)
[2020-04-25] MEDS: OXYCODONE IR 5 MG TABLET PO (12:29)
[2020-04-25] MEDS: fentaNYL 100 MCG/2 ML INJ IV ×2 (12:29→12:34)
--- NOTE | 2020-04-25 12:29 | P.OP_ITS ---
Operative Date/Time/Diagnoses Date of procedure: 04/25/20 Time of procedure: 10:45 Pre-op diagnosis: multifibroid uterus Post-op diagnosis: same Procedure & Clinicians Procedure: Laparoscopic supracervical hysterectomy and bilateral salpingectomy Same procedure as scheduled: Yes Indications: multifibroid uterus, pelvic pain Surgeon: Pooja Vazquez Consulting Marine Engineer: Polly Newsome Anesthesia Type: General Operative Notes Findings: Normal tubes and ovaries. Approximately 2 mm x 2 mm broad ligament fibroid on the right, removed with cautery. Large multi fibroid uterus, dominant myoma posterior wall, intramural/subserosal. Closure Type: primary Specimen(s): other Estimated Blood Loss (mL): 50 Procedure in detail: After proper consents were obtained, the patient was taken to the operating room. General anesthesia was induced, and she was placed in the dorsal lithotomy position and prepped and draped in the normal sterile fashion. A brock catheter was placed, and a speculum placed in the patient's vagina. A single tooth tenaculum was applied to the anterior lip of the cervix, and hegar dilators used to dilate the cervix to 6mm with gentle pressure. A uterine manipulator was gently inserted, though could not be inserted for past the cervix due to multiple palpable fibroids, and the balloon inflated to 5ccs. The tenaculum and speculum were removed from the vagina. Attention was then turned to the abdomen, where 1cc of .25% marcaine with epinephrine was used to infiltrate the skin just below the umbilicus. A scalpel was used to make a 5mm incision, the anterior abdominal wall was elevated, and a Veress needle gently inserted into the abdomen. Intraperitoneal placement was confirmed with a drop of normal saline passed through the veress needle with gravity, and CO2 used to insufflate the abdomen to 15mmHg. A 5mm trocar and sleeve were placed into the abdomen through this incision, and intraperitoneal placement was confirmed visually with insertion of the laparoscope. Abdominal survey at this time was normal except for the multi fibroid uterus as above, and lateral ports were placed under direct visualization. These were placed on the left and right, 8cm from the umbilicus and after infiltration of 1mm of local anesthetic as above. The patient was placed in trendelenburg position, and a blunt probe used to gently push the bowel out of the pelvis. The ovaries and fallopian tubes appeared normal bilaterally. A atraumatic grasper was used to elevate the right fallopian tube, and a PK device was used to amputate this. The uteroovarian ligament and round ligaments were then cauterized and transected with this device, the anterior and posterior leaflets of the broad ligament and skeletonized and the vesicouterine peritoneum identified. This was transected and a bladder flap created with the PK device and gentle traction. The uterine arteries were identified, and cauterized and cut at the level of the internal os. The same procedure was performed on the patient's left, without complication. The Rebecca loop was inserted into the abdomen, and placed around the uterus at the level of the internal os, below the dominant myoma. After careful inspection for proper placement anteriorly and posteriorly, this device was used to amputate the uterine fundus without complication. The PK device was used to ablate the cervical os, and hemostasis achieved where necessary with the PK device. Attention was then turned to the abdominal wall, where .25% marcaine with epinephrine was used to infiltrate a midline area 2cm above the pubic symphesis. A scalpel was used to make a 3cm minilaparotomy, and a 15mm trocar and sleeve inserted under direct visualization into the abdominal cavity. A 12mm endocatch bag was placed through this port under direct visualization, and carefully deployed into the abdomen. The uterus was placed in the bag, and the bag was closed and removed under direct visualization of all parts of the bag. The open end of the bag was removed through the port, the port was removed, and the open end of the endocatch bag brought through the incision. A small Karma device was inserted to protect the incision and skin, and the uterus was brought to the opening of the incision and carefully hand morcellated out through the incision using a scalpel. After removal of the uterus, the karma device and endocatch bag were removed. The fascia at the minilaparotomy incision was closed using 0 vicryl in a running fashion. The abdomen was re-insufflated, hemostasis at the operative sites assured, and a repeat abdominal survey was normal including visualization of both ureters, other courses below the level of amputation of the cervix, and peristalsis for both. The laparoscope was removed from the abdomen, the insufflating gas allowed to escape, and the ports removed. An interrupted suture was used at the mini-laparotomy to close the subcutaneous space in an interrupted fashion, and the skin at all 4 incisions closed with 4-0 biosyn, then covered with steri strips and bandages. The brock catheter was removed from the bladder. The patient tolerated the procedure well, all counts were correct, 2g of Ancef were given at the beginning of the case and a test was negative on admission. The patient was transported to PACU in stable condition. IVF: 800ccs LR UOP: 100ccs clear yellow urine EBL: [address] Newsome was present throughout the case and her assistence was integral to completion of the case, including uterine manipulation and access given the multiple fibroids. Complications: none Post-operative Condition: stable Disposition: PACU Plan for aftercare: Routine postop care
[2020-04-25] MEDS: LACTATED RINGERS 1,000 ML 125 ML IV (13:25)
--- NOTE | 2020-04-25 13:32 | PC.NURSE ---
Day shift: Pt on AC unit at approc 1315 from PACU. Pt is A&Ox3. Pain described as menstrual cramping/ 07/16. Oriented to toom and call light. Tolerating ice chips w/ no nausea. VS WNL. RA 98%. CMS intact. 4 ABD dressings are CDI. Pad is dry. IV infusing per MAR. Pt does state she needs to void. Call lgiht in reach. Pt agrees to not get OOB w/o help from staff.
--- NOTE | 2020-04-25 18:11 | P.DS_ITS ---
History of Present Illness History of Present Illness Date Patient Seen: 04/25/20 Time Patient Seen: 18:11 Chief complaint: s/p laparoscopic hysterectomy Narrative: This patient is a 45-year-old postop day 0 status post laparoscopic supracervical hysterectomy and bilateral salpingectomy for multi fibroid uterus. The patient's surgery was uncomplicated, and the patient desires to be discharged home on postop day 0 given the ongoing pandemic and risk of exposure in the hospital. The patient has ambulated, voided, is tolerating p.o., and has good pain control on p.o. medications. She reports some rumbling, though she has not yet passed flatus. Discharge Providers Provider Discharge Date: 04/25/20 Primary care physician: Reginald García MD Consults: 04/25/20 13:08 Consult to Discharge Planning Routine Comment: Discharge provider: Pooja Vazquez MD Summary Hospital Course Discharge Diagnosis: Multi fibroid uterus Hospital Course: This patient is a 45-year-old postop day 0 status post supracervical laparoscopic hysterectomy and bilateral salpingectomy. Her surgery was uncomplicated, and she met postoperative goals appropriately on the evening postop day 0. She was discharged home with postoperative precautions. Status at Discharge Cognitive/behavioral status at discharge: oriented Functional status at discharge: independent ambulation Overall status at discharge: patient is progressing back to baseline Exam Vital Signs (past 8 hours): - 04/25/20 12:13 04/25/20 12:17 04/25/20 12:22 Temperature 97.8 F 97.8 F 96.6 F L Pulse Rate 81 78 75 Respiratory Rate 23 24 19 Blood Pressure 87/38 L 88/46 L 95/55 L Pulse Oximetry 94 94 95 04/25/20 12:27 04/25/20 12:42 04/25/20 12:57 Temperature 96.8 F L 97.5 F L 96.9 F L Pulse Rate 87 83 97 H Respiratory Rate 14 13 14 Blood Pressure 108/65 94/47 L 107/63 Pulse Oximetry 96 94 96 04/25/20 13:14 04/25/20 13:44 04/25/20 14:35 Temperature 96.5 F L 96.9 F L 97.0 F L Pulse Rate 99 H 93 H 94 H Respiratory Rate 14 14 16 Blood Pressure 120/77 152/68 H 125/74 Pulse Oximetry 97 97 96 04/25/20 15:35 Temperature 98.3 F Pulse Rate 99 H Respiratory Rate 20 Blood Pressure 131/79 Pulse Oximetry 97 Oxygen Delivery Method Room Air Oxygen Flow Rate 0 Const General: cooperative, healthy appearing (Resting in bed) and comfortable GI Inspection: incision (c/d/i) Palpation: soft and No tender Extrem General: normal to inspection Objective Labs Result Diagrams: 04/25/20 10:04 04/25/20 10:04 Labs: Laboratory Results - last 24 hr 04/25/20 04/25/20 04/25/20 10:04 10:04 10:04 WBC 11.0 RBC 4.35 Hgb 12.5 Hct 38.1 MCV 87.6 MCH 28.7 MCHC 32.8 RDW 13.6 Plt Count 247 Neut % (Auto) 66.7 Lymph % (Auto) 26.0 Rabun % (Auto) 4.0 Eos % (Auto) 2.3 Baso % (Auto) 1.0 Neut # (Auto) 7300 H Lymph # (Auto) 2900 Rabun # (Auto) 400 Eos # (Auto) 300 Baso # (Auto) 100 Sodium 135 L Potassium 4.0 Chloride 106 Carbon Dioxide 23 BUN 11 Creatinine 0.78 Estimated GFR > 60.0 BUN/Creatinine Ratio 14.1 Glucose 92 Calcium 8.7 Blood Type O Positive Antibody Screen Negative [facility] [place] Medical History Ankle fracture, left (12/15/18) Asthma Fibroid, uterine Fibroids HTN (hypertension) Ovarian cyst Surgical History History of open reduction and internal fixation (ORIF) procedure (12/22/18) History of third molar tooth extraction Family History Mother Cancer Social History household members: significant other Smoking Status: Never smoker alcohol intake: current Discharge Assessment & Plan Assessment and Plan Assessment: This patient is postop day 0 status post an uncomplicated laparoscopic supracervical hysterectomy and bilateral salpingectomy for a multi fibroid uterus. She is meeting postoperative goals appropriately, is stable for discharge with outpatient follow-up. The patient lives in [place], and postoperative precautions were discussed at length. The patient and her partner vocalized understanding. Plan of Treatment: Home with close outpatient follow-up. Discharge Plan Discharge Plan Patient Disposition: Home Discharge orders & Medications Discharge Orders: Discharge (Order); Ordered 04/25/20 Ordered By: Pooja Vazquez Prescriptions: New oxycodone 5 mg tablet 5 mg PO Q6H PRN (Reason: pain) Qty: 14 RF: 0 Continued losartan 50 MG tablet 50 mg PO QDAY Qty: 30 RF: 3 citalopram 20 MG tablet 10 mg PO QPM Qty: 0 RF: 0 norgestimate-ethinyl estradiol [Estarylla] 0.25-35 mg-mcg tablet See Rx Instructions .ROUTE .COMPLEX Qty: 84 RF: 3 beclomethasone dipropionate 80 mcg/actuation aerosol INHALATION RF: 0 montelukast 10 mg tablet 10 mg PO DAILY RF: 0 chlorpheniramine maleate [Allergy (chlorpheniramine)] 4 mg tablet 4 mg PO Q6H PRN (Reason: Allergies) RF: 0 ipratropium-albuterol 0.5 mg-3 mg(2.5 mg base)/3 mL solution for nebulization 3 ml INHALATION Q4-6H PRN (Reason: shortness of breath or wheezing) Qty: 90 RF: 0 albuterol sulfate 90 mcg/actuation HFA aerosol inhaler 2 puff Inhalation Q4H PRN (Reason: Shortness Of Breath) RF: 0 Follow up/Referrals: Reginald García MD [Primary Care Provider] - Pooja Vazquez MD [Physician] - 2 Weeks (Postop check) Diet/Activity/Treatments Diet: Regular Activity: Nothing in the vagina for 6 weeks. Avoid lifting more than 10 lb for 6 weeks. If you have increasing fevers, chills, nausea, vomiting, bloating, bleeding, trouble breathing, or any other symptoms, call or come to the emergency room. Remove the Band-Aids over your incisions the day after surgery, and the Steri- Strips directly over the incisions within 1 week. You may shower but do not rub the incision, pat dry. Skin/Wound/Dressing Care Report to your healthcare provider any signs of infection, such as:: chills, fever, night sweats, increased pain, unusual drainage and unusual redness Visit Report/Discharge Packet Instructions: DI for Hysterectomy, DI for Laparoscopy Stand Alone Forms: Surgery Discharge Discharge Data Primary Care Provider: Reginald García Attending Provider: Pooja Vazquez
--- NOTE | 2020-04-25 19:25 | PC.NURSE ---
Discharge note: Pt given D/C instrustions with spouse at bedside. pt verbalizes understanding. Medications given to pt from pharmacy. IV D/C. Pt dressed and taken to car with this nurse via wheelchair.
== END 2020-04-25 19:20 | disposition home or self-care (01) ==
LOC: OR 09:36 → AC 09:38
PROVIDERS: PCP Family Medicine; Referring Provider Obstetrics & Gynecology; Visit Provider Obstetrics & Gynecology
PROC: 0UT94ZL Resection of Uterus, Supracervical, Percutaneous Endoscopic Approach (ICD-10-PCS; CPT 58542; principal; 2020-04-25 10:45)
DX: D25.1 Intramural leiomyoma of uterus (principal); D25.2 Subserosal leiomyoma of uterus; J45.909 Unspecified asthma, uncomplicated; I10 Essential (primary) hypertension
CPT/HCPCS: 58542; 36415; 80048; 81025; 82962; 85025; 86850; 86900; 86901; J0690; J1100; J1885; J2250; J2405; J2704; J2795; J3010

== ENCOUNTER 2021-03-08 03:13 | Emergency (ER) | payer BC, SELFPAY ==
[2020-04-25 14:01] VITALS: BMI 26.1
[2021-03-08 03:30] VITALS: BP 193/118; PULSE 87; RESP 19; TEMP 36.6; O2SAT 99; BMI 25.8
--- NOTE | 2021-03-08 03:42 | ED.PSYCH ---
HPI - Psych General Chief Complaint: Psychiatric Symptoms Stated Complaint: mental health Time Seen by Provider: 03/08/21 03:22 Source: patient and other Mode of arrival: Ambulatory History of Present Illness HPI Narrative: Patient is a 46-year-old female with history of depression presenting today with suicidal ideation. She apparently made a post on social media a friend found concerning she may was parked at [facility]. Police were called in the friend brought her to emergency department for evaluation. Patient states his it she does have suicidal ideations but says that she would never act on them. If years ago she did attempt suicide by swelling multiple pills but she was never hospitalized for. She said when she was [age] she has symptoms multiple times. She is not in therapy. This is she does not strong enough to go through it. But she does have a sense of hopelessness. She lives at home with her boyfriend. His boyfriend is not always supportive but she feels safe at. sHe says that she he just does not quite understand everything. Related Data Home Medications Medication Instructions Recorded Confirmed citalopram 20 mg tablet 10 mg PO QPM #0 05/11/17 05/08/20 albuterol sulfate 90 mcg/actuation 2 puff INHALATION Q4H PRN 09/23/17 05/08/20 aerosol inhaler beclomethasone dipropionate 80 mcg INHALATION 05/21/19 05/08/20 mcg/actuation aerosol inhaler chlorpheniramine maleate 4 mg 4 mg PO Q6H PRN 03/04/20 05/08/20 tablet (Allergy (chlorpheniramine)) montelukast 10 mg tablet 10 mg PO DAILY 03/04/20 05/08/20 Previous Rx's Medication Instructions Recorded losartan 50 mg tablet 50 mg PO QDAY #30 tab 02/10/16 ipratropium 0.5 mg-albuterol 3 mg 3 ml INHALATION Q4-6H PRN #90 ml 02/01/19 (2.5 mg base)/3 mL nebulization soln norgestimate 0.25 mg-ethinyl See Rx Instructions .ROUTE 09/07/19 estradiol 35 mcg tablet (Estarylla) .COMPLEX #84 tab Allergies Allergy/AdvReac Type Severity Reaction Status Date / Time shellfish derived Allergy Severe Difficulty Verified 05/08/20 09:24 Breathing loratadine [LORATADINE] Allergy Intermediate Verified 05/08/20 09:24 ethinyl estradiol AdvReac Mild Nausea Verified 05/08/20 09:24 [From Sprintec (28)] (been several years since taken) norgestimate AdvReac Mild Nausea Verified 05/08/20 09:24 [From Sprintec (28)] (been several years since taken) Review of Systems Review of Systems Narrative: GENERAL: Denies chills,fever HEENT: Denies throat pain RESPIRATORY: Denies dyspnea, cough, wheezing CARDIOVASCULAR: Denies chest pain, palpitations GASTROINTESTINAL: Denies nausea, vomiting MUSCULOSKELETAL: Denies extremity pain, injury SKIN: No rash, no laceration, no pruritus NEUROLOGIC: Denies weakness, dizziness, headache, numbness 8 point review of systems is negative except for those stated above and HPI Psychiatric Psychiatric: Reports as per HPI, Reports depression and Reports suicidal ideation Patient History Medical History (Updated 03/08/21 @ 04:27 by Bonnie Cheng DO) Ankle fracture, left (12/15/18) Asthma Fibroid, uterine Fibroids HTN (hypertension) Ovarian cyst Surgical History (Updated 03/08/21 @ 04:25 by Bonnie Cheng DO) History of open reduction and internal fixation (ORIF) procedure (12/22/18) History of third molar tooth extraction Status post hysterectomy Family History Mother Cancer Social History household members: significant other Smoking Status: Never smoker alcohol intake: current Smoking Status: Never smoker alcohol intake frequency: a few times a week Substance Use Type: marijuana Exam Initial Vital Signs Initial Vital Signs: Vital Signs Temperature 97.8 F 03/08/21 03:30 Pulse Rate 87 03/08/21 03:30 Respiratory Rate 19 03/08/21 03:30 Blood Pressure 193/118 H 03/08/21 03:30 Pulse Oximetry 99 03/08/21 03:30 GENERAL: Well a chest mildly tearful CARDIOVASCULAR: peripheral pulses in tact, cap refill <2 sec RESPIRATORY: No respiratory distress, speaks in full sentences without difficulty EXTREMITIES: Normal range of motion, no clubbing or edema. Neurovascularly intact NEUROLOGICAL: Cranial nerves II through XII grossly intact. Normal gait and speech. SKIN: Warm, dry, no petechiae, no rashes or lesions. Course Vital Signs Vital signs: Vital Signs - 8 hr 03/08/21 03:30 Temperature 97.8 F Pulse Rate 87 Respiratory Rate 19 Blood Pressure 193/118 H Pulse Oximetry 99 MDM - Psych MDM Narrative Medical decision making narrative: Patient really does not meet involuntary criteria. She is tearful. She also states that she was out of her antidepressant medication for 2 weeks difficulty getting a new prescription and refilling it but eventually she figured that out. She has a good friend with her. She states at this time she is able to contract for safety she feels like she can reach out to someone it might not be her boyfriend but she feels that she would reach out. We have called [facility] in scheduled a follow-up phone call for her later this afternoon as well as for tomorrow. She also offered voluntary placement, however at this time she opts to go home. She contracts for safety. The patient is clinically sober, free from distracting injury, appears to have intact insight, judgment and reason. Does not meet criteria for involuntary hospitalization. Patient has the capacity to make decisions. Discharge Plan Departure Patient Disposition: Home Clinical Impression: Depression Instructions: Depression, DI for Suicidal Ideation-Adult Activity Restrictions/Additional Instructions: *You have been diagnosed with depression *What to do: I strongly encourage you to meet with a therapist. [facility] call you today between 2 and 4:00 p.m. to check on you and they will also call you tomorrow around the same time. If you are feeling suicidal or having suicidal thoughts: Call: Suicide Hotline: Visit: www.[employer].org Text: 006364 *Continue to take medications as directed *Follow up with your primary care provider in 2-3 days *Return to ER if you should have increasing thoughts of self harm, worsening depression or any new, worsening or concerning symptoms Prescriptions: No Action losartan 50 MG tablet 50 mg PO QDAY Qty: 30 RF: 3 citalopram 20 MG tablet 10 mg PO QPM Qty: 0 RF: 0 norgestimate-ethinyl estradiol [Estarylla] 0.25-35 mg-mcg tablet See Rx Instructions .ROUTE .COMPLEX Qty: 84 RF: 3 beclomethasone dipropionate 80 mcg/actuation aerosol INHALATION RF: 0 montelukast 10 mg tablet 10 mg PO DAILY RF: 0 chlorpheniramine maleate [Allergy (chlorpheniramine)] 4 mg tablet 4 mg PO Q6H PRN (Reason: Allergies) RF: 0 ipratropium-albuterol 0.5 mg-3 mg(2.5 mg base)/3 mL solution for nebulization 3 ml INHALATION Q4-6H PRN (Reason: shortness of breath or wheezing) Qty: 90 RF: 0 albuterol sulfate 90 mcg/actuation HFA aerosol inhaler 2 puff Inhalation Q4H PRN (Reason: Shortness Of Breath) RF: 0 Referrals: [facility] [Outside] Reginald García MD [Primary Care Provider] -
--- NOTE | 2021-03-08 04:18 | PC.NURSE ---
Placed call to [facility] and set up well check calls for this afternoon and tomorrow.
[2021-03-08 04:19] VITALS: BP 153/103; PULSE 85; RESP 17; O2SAT 98
== END 2021-03-08 04:23 | disposition home or self-care (01) ==
PROVIDERS: Emergency Provider Emergency Medicine; PCP Family Medicine
DX: F32.A Depression, unspecified (principal)
CPT/HCPCS: 99282; 99284

== ENCOUNTER 2022-04-02 08:52 | Emergency (ER) | payer OTHER, SELFPAY ==
[2020-04-25 14:01] VITALS: BMI 26.1
[2022-04-02 09:07] VITALS: BP 148/88; PULSE 76; RESP 18; TEMP 37.1; O2SAT 98; BMI 25.0
[2022-04-02 09:47] LABS: Add Manual Diff / Slide Review NO; Appearance Urine UA CLEAR; Basophils Absolute Auto 0 /uL (0-100); Basophils Percent Auto 0.5 % (0-2); Bilirubin Urine UA NEGATIVE (NEGATIVE); Color Urine UA YELLOW; Eosinophils Absolute Auto 300 /uL (0-450); Eosinophils Percent Auto 3.9 % (2-4); Glucose Urine UA TRACE g/dL (Negative); Hematocrit 38.5 % (36-46); Ketones Urine UA NEGATIVE (NEGATIVE); Leukocyte Esterase Urine UA NEGATIVE (NEGATIVE); Lymphocytes Absolute Auto 2100 /uL (1100-4500); Lymphocytes Percent Auto 26.8 % (25-40); Mean Corpuscular HGB Conc 33.8 % (30-36); Mean Corpuscular Hemoglobin 29.6 PG (26-34); Mean Corpuscular Volume 87.6 fL (80-100); Monocytes Absolute Auto 300 /uL (0-900); Monocytes Percent Auto 3.7 % (3-14); Neutrophils Absolute Auto 5200 /uL (1500-7000); Neutrophils Percent Auto 65.1 % (50-75); Nitrite Urine UA NEGATIVE (Negative); Occult Blood Urine UA 1+ (Negative); Platelet Count 230 X10^3/uL (150-400); Protein Urine UA TRACE (Negative); Red Blood Cell Count 4.39 X10^6/uL (4.0-5.2); Urobilinogen Urine UA 0.2 E.U./dL (0.2)
[2022-04-02 09:51] LABS: Alanine Aminotransferase 16 IU/L (<35); Albumin 4.1 g/dL (3.5-5.0); Albumin Globulin Ratio 1.4 (1.0-2.8); Alkaline Phosphatase 51 U/L (38-126); Aspartate Aminotransferase 19 IU/L (14-36); BUN Creatinine Ratio 18.7 (6-22); Bilirubin Total 0.8 mg/dL (0.2-1.3); Blood Urea Nitrogen 14 mg/dL (7-17); Carbon Dioxide 26 mmol/L (22-32); Chloride 104 mmol/L (98-107); Estimated Glomerular Filt Rate > 60 mL/min (>60); Globulin 2.9 g/dL (1.7-4.1); Glucose 146 mg/dL (70-100); HEMOLYSIS < 15 (0-50); Lipase 68 U/L (23-300); Potassium 3.7 mmol/L (3.4-5.1); Sodium 139 mmol/L (137-145)
[2022-04-02 10:00] LABS: Amorphous Sediment Urine 1+; Bacteria Urine Many (>30); Culture Indicated Urine Specimen Cultured; Mucus Urine 1+ (Negative); RBC Urine 1-5/HPF (0-5/HPF); Squamous Epithelial Cell Urine 1-5 /HPF (0-5/HPF); WBC Urine 5-10/HPF (0-5/HPF)
[2022-04-02 10:47] VITALS: PULSE 67; O2SAT 100
[2022-04-02 10:48] VITALS: BP 130/87; PULSE 69; O2SAT 99
--- NOTE | 2022-04-02 11:10 | ED.GENADULT ---
HPI - General Adult General Chief complaint: Abdominal Pain Stated complaint: LT hip pain going across abd t-1 Time Seen by Provider: 04/02/22 10:57 Source: patient Mode of arrival: Ambulatory History of Present Illness HPI narrative: Patient is a 47-year-old female who last evening had a fairly sudden onset of lower abdominal discomfort. She states it is both sides of her abdomen. It has eased up somewhat since the onset. She denies any urinary symptoms. Did have a small bowel movement this morning that did not change the pain. No nausea or vomiting. No vaginal bleeding. She is also here for lower back and left hip pain that she is had for the past 6 months. This started after she bought a kick bag and started doing some workouts. She has been evaluated for this. She is been to the chiropractor without any improvement. She sometimes gets pain radiating down her leg. She has had a hysterectomy. Related Data Home Medications Medication Instructions Recorded Confirmed citalopram 20 mg tablet 10 mg PO QPM ##0 05/11/17 07/28/21 albuterol sulfate 90 mcg/actuation 2 puff inhalation Q4H PRN 09/23/17 07/28/21 aerosol inhaler Shortness Of Breath beclomethasone dipropionate 80 mcg inhalation 05/21/19 07/28/21 mcg/actuation aerosol inhaler chlorpheniramine maleate 4 mg 4 mg PO Q6H PRN Allergies 03/04/20 07/28/21 tablet (Allergy (chlorpheniramine)) montelukast 10 mg tablet 10 mg PO DAILY 03/04/20 07/28/21 Previous Rx's Medication Instructions Recorded losartan 50 mg tablet 50 mg PO QDAY #30 tabs 02/10/16 ipratropium 0.5 mg-albuterol 3 mg 3 ml inhalation Q4-6H PRN 02/01/19 (2.5 mg base)/3 mL nebulization shortness of breath or wheezing soln #90 mL norgestimate 0.25 mg-ethinyl See Rx Instructions .Route 09/07/19 estradiol 35 mcg tablet (Estarylla) .COMPLEX #84 tabs cyclobenzaprine 5 mg tablet 5 mg PO TID PRN muscle spasm #5 07/28/21 tabs nitrofurantoin 100 mg PO Q12H 5 days #10 caps 04/02/22 monohydrate/macrocrystals 100 mg capsule (Macrobid) nitrofurantoin 100 mg PO Q12H 5 days #10 caps 04/02/22 monohydrate/macrocrystals 100 mg capsule (Macrobid) Allergies Allergy/AdvReac Type Severity Reaction Status Date / Time shellfish derived Allergy Severe Difficulty Verified 07/28/21 16:47 Breathing loratadine [LORATADINE] Allergy Intermediate Verified 07/28/21 16:47 ethinyl estradiol AdvReac Mild Nausea Verified 07/28/21 16:47 [From Sprintec (28)] (been several years since taken) norgestimate AdvReac Mild Nausea Verified 07/28/21 16:47 [From Sprintec (28)] (been several years since taken) Review of Systems Review of Systems ROS Unobtainable: All systems reviewed & are unremarkable except as noted in HPI and below Patient History Medical History Ankle fracture, left (12/15/18) Asthma Fibroid, uterine Fibroids HTN (hypertension) Ovarian cyst Surgical History History of open reduction and internal fixation (ORIF) procedure (12/22/18) History of third molar tooth extraction Status post hysterectomy Family History Mother Cancer Social History household members: significant other Smoking Status: Never smoker alcohol intake: current Smoking Status: Never smoker alcohol intake frequency: a few times a week Substance Use Type: marijuana Exam Initial Vital Signs Initial Vital Signs: Vital Signs Temperature 98.7 F 04/02/22 09:07 Pulse Rate 76 04/02/22 09:07 Respiratory Rate 18 04/02/22 09:07 Blood Pressure 148/88 H 04/02/22 09:07 Pulse Oximetry 98 04/02/22 09:07 Oxygen Delivery Method 04/02/22 09:07 Const General: cooperative and comfortable HENMT Head: normal to inspection and normocephalic Cardio Rate: regular rate Rhythm: regular rhythm GI Palpation: soft, No firm and tender (Lower abdomen) Back/Spine/Pelvis Back: No CVA tenderness Other: Some discomfort over the left SI joint Skin General: no rashes or lesions noted Neuro General: patient alert, patient awake and moves all extremities Extrem Other: Patient does have discomfort over the piriformis muscle on the left. Also has reproducible discomfort with stretching of the piriformis muscle. No tenderness over the greater trochanter on the left. Psych Appearance: grossly normal and well kempt Course Orders Ordered: ED Orders 04/02/22 09:30 Complete Blood Count AUTO DIFF Stat Comprehensive Metabolic Panel Stat Lipase Stat UA Complete [Urinalysis and Microscopic] Stat Urine Culture Stat 04/02/22 11:11 CT abdomen pelvis w con Stat Discontinued Medications Ondansetron HCl (Ondansetron 4 Mg Odt) 4 mg PO NOW ONE Stop: 04/02/22 09:11 Last Admin: 04/02/22 11:29 Dose: Not Given Documented By: MARYLIN Ondansetron HCl (Ondansetron 4 Mg/2 Ml Inj) 4 mg IV NOW ONE Stop: 04/02/22 09:11 Last Admin: 04/02/22 11:29 Dose: Not Given Documented By: MARYLIN Vital Signs Vital signs: Vital Signs - 8 hr 04/02/22 10:47 04/02/22 10:48 04/02/22 10:48 Pulse Rate 67 69 Blood Pressure 130/87 Pulse Oximetry 100 99 Oxygen Delivery Method 04/02/22 13:38 04/02/22 13:38 Pulse Rate 67 Blood Pressure 129/89 Pulse Oximetry 100 Oxygen Delivery Method Room Air Medical Decision Making Lab Data Lab results reviewed: Yes I reviewed the patient's lab results. Result diagrams: 04/02/22 09:30 04/02/22 09:30 Labs: Lab Results 04/02/22 04/02/22 04/02/22 Range/Units 09:30 09:30 09:30 WBC 8.0 (4.5-11.0) X10^3/uL RBC 4.39 (4.0-5.2) X10^6/uL Hgb 13.0 (12.0-16.0) g/dL Hct 38.5 (36-46) % MCV 87.6 (80-100) fL MCH 29.6 (26-34) PG MCHC 33.8 (30-36) % RDW 13.0 (11.6-14.8) % Plt Count 230 (150-400) X10^3/uL Neut % (Auto) 65.1 (50-75) % Lymph % (Auto) 26.8 (25-40) % Mineral % (Auto) 3.7 (3-14) % Eos % (Auto) 3.9 (2-4) % Baso % (Auto) 0.5 (0-2) % Neut # (Auto) 5200 (2335-9644) /uL Lymph # (Auto) 2100 (4649-5382) /uL Mineral # (Auto) 300 (0-900) /uL Eos # (Auto) 300 (0-450) /uL Baso # (Auto) 0 (0-100) /uL Sodium 139 (137-145) mmol/L Potassium 3.7 (3.4-5.1) mmol/L Chloride 104 (98-107) mmol/L Carbon Dioxide 26 (22-32) mmol/L BUN 14 (7-17) mg/dL Creatinine 0.75 (0.52-1.04) mg/dL Estimated GFR > 60 (>60) mL/min BUN/Creatinine Ratio 18.7 (6-22) Glucose 146 H (70-100) mg/dL Calcium 9.0 (8.4-10.2) mg/dL Total Bilirubin 0.8 (0.2-1.3) mg/dL AST 19 (14-36) IU/L ALT 16 (<35) IU/L Alkaline Phosphatase 51 (38-126) U/L Total Protein 7.0 (6.3-8.2) g/dL Albumin 4.1 (3.5-5.0) g/dL Globulin 2.9 (1.7-4.1) g/dL Albumin/Globulin Ratio 1.4 (1.0-2.8) Lipase 68 (23-300) U/L Urine Color Yellow Urine Appearance Clear Urine pH 7.0 (4.5-8.0) Ur Specific [place] 1.020 (1.000-1.035) Urine Protein Trace H (Negative) Urine Glucose (UA) Trace H (Negative) g/dL Urine Ketones Negative (NEGATIVE) Urine Occult Blood 1+ H (Negative) Urine Nitrate Negative (Negative) Urine Bilirubin Negative (NEGATIVE) Urine Urobilinogen 0.2 (0.2) E.U./dL Ur Leukocyte Esterase Negative (NEGATIVE) Urine RBC 1-5/hpf (0-5/HPF) Urine WBC 5-10/hpf H (0-5/HPF) Ur Squamous Epith Cells 1-5 /hpf (0-5/HPF) Amorphous Sediment 1+ Urine Bacteria Many (>30) H (None) Urine Mucus 1+ H (Negative) Ur Culture Indicated? Specimen cultured Imaging Data CT scan - abdomen/pelvis: Radiologist's Impression: [address] [address] [address] Scan Report Signed Patient: Sparkle Kemp MR#: [id number] : 1975 Acct:[id number] Age/Sex: 47 / F Date of Service: 04/02/22 Loc: ED Accession Number: [id number] ?? Procedure: CT abdomen pelvis w con Ordering Provider: Yoandy Horton D.O. PROCEDURE:? CT ABDOMEN PELVIS W CON ? INDICATIONS:? Lower abdominal pain, eval for appy ? TECHNIQUE:? After the administration of intravenous contrast, axial sections acquired from the lung bases to the pubic symphysis.? Coronal and sagittal reformats were performed.? For radiation dose reduction, the following was used:? automated exposure control, adjustment of mA and/or kV according to patient size.? ? COMPARISON:? [facility], CT, CT ABDOMEN PELVIS W CON, 02/17/2020, 11:04. ? FINDINGS:? Image quality:? Excellent.? ? Lung bases:? Unremarkable. Heart:? No significant findings. ? ABDOMEN: Liver:? 2.2 cm segment eight hepatic hemangioma and 1.7 cm caudate lobe hemangioma.? No other suspicious liver lesions. Gallbladder:? Decompressed. Biliary ducts:? Nondilated. Pancreas:? Normal. Spleen:? Normal. Adrenal Glands:? No nodules. Kidneys and Ureters: Symmetric enhancement.? No nephrolithiasis or hydronephrosis.? No hydroureter. ? Stomach and Bowel:? Stomach and small bowel loops are normal.? There is mild mucosal hyperemia and wall thickening of a long segment of the proximal and transverse colon without significant pericolonic inflammatory changes.? Normal appendix. Peritoneum:? No abnormal intraperitoneal fluid.? No free air.? ? Ventral Wall: Tiny fat containing umbilical hernia.? Abdominal Nodes:? No retroperitoneal or mesenteric adenopathy by size criteria.? Vessels:? Aorta and inferior vena cava are normal in size.? ? PELVIS: Pelvic Organs:? Normal uterus.? Peripherally vascular left ovarian follicle.? The right ovary is not well seen.? Trace, likely physiologic fluid in the right posterior pelvis. Bladder:? Normal wall thickness. Pelvic Nodes: No enlarged lymph nodes.? Miscellaneous: No hernias are seen. ? ? ? Bones:? Unremarkable.? IMPRESSION:? ? 1. Normal appendix. ? 2. Findings suggesting mild long segment ascending and transverse colitis.? Likely infectious or inflammatory. ? 3. Left ovarian corpus luteum. ? 4. Hepatic hemangiomas.? ? ? Dictated by: Rachel White M.D. on 04/02/2022 at 12:39 ? ? Approved by: Rachel White M.D. on 04/02/2022 at 12:46?? [facility] Narrative Medical decision making narrative: Patient does have bilateral lower abdominal tenderness that did have somewhat of a sudden onset last evening. Her urinalysis could be consistent with a urinary tract infection however she does not have any dysuria. Given the sudden onset of the symptoms and also the fact that other etiologies such as kidney stone or appendicitis could cause a white blood cell in the urine CT scan was ordered. This was unremarkable. Plan to be is to discharge home with antibiotics. She was given return precautions. She expressed understanding and agreement. Discharge Plan Departure Patient Disposition: Home Clinical Impression: Urinary tract infection Instructions: DI for Urinary Tract Infection (UTI) Activity Restrictions/Additional Instructions: Take the antibiotics as directed. They were electronically transmitted to [facility]. Contact your primary doctor for a follow-up. Return to the emergency department for any new or worsening symptoms. Prescriptions: New nitrofurantoin monohyd/m-cryst [Macrobid] 100 mg capsule 100 mg PO Q12H 5 Days Qty: 10 0RF Rx Instructions: must administer with a meal/food nitrofurantoin monohyd/m-cryst [Macrobid] 100 mg capsule 100 mg PO Q12H 5 Days Qty: 10 0RF Rx Instructions: must administer with a meal/food No Action losartan 50 MG tablet 50 mg PO QDAY Qty: 30 3RF citalopram 20 MG tablet 10 mg PO QPM Qty: 0 norgestimate-ethinyl estradiol [Estarylla] 0.25-35 mg-mcg tablet See Rx Instructions .ROUTE .COMPLEX Qty: 84 3RF Dose Instruction: TAKE 1 TABLET BY MOUTH DAILY CONTINOUSLY SKIP PLACEBOS Rx Instructions: TAKE 1 TABLET BY MOUTH DAILY CONTINOUSLY SKIP PLACEBOS beclomethasone dipropionate 80 mcg/actuation aerosol INHALATION cyclobenzaprine 5 mg tablet 5 mg PO TID PRN (Reason: muscle spasm) Qty: 5 0RF Rx Instructions: Use as needed for back pain, as often as every 8 hours. montelukast 10 mg tablet 10 mg PO DAILY chlorpheniramine maleate [Allergy (chlorpheniramine)] 4 mg tablet 4 mg PO Q6H PRN (Reason: Allergies) ipratropium-albuterol 0.5 mg-3 mg(2.5 mg base)/3 mL solution for nebulization 3 ml INHALATION Q4-6H PRN (Reason: shortness of breath or wheezing) Qty: 90 0RF albuterol sulfate 90 mcg/actuation HFA aerosol inhaler 2 puff Inhalation Q4H PRN (Reason: Shortness Of Breath) Label Comments: INHALE 2 PUFFS PO Q 4 H PRF SOB OR WHEEZING Referrals: Reginald García MD [Primary Care Provider] - Visit Report Forms: Patient Portal/API
--- NOTE | 2022-04-02 11:11 | DI.CT.S_ITS ---
PROCEDURE: CT ABDOMEN PELVIS W CON INDICATIONS: Lower abdominal pain, eval for appy TECHNIQUE: After the administration of intravenous contrast, axial sections acquired from the lung bases to the pubic symphysis. Coronal and sagittal reformats were performed. For radiation dose reduction, the following was used: automated exposure control, adjustment of mA and/or kV according to patient size. COMPARISON: [facility], CT, CT ABDOMEN PELVIS W CON, 02/17/2020, 11:04. FINDINGS: Image quality: Excellent. Lung bases: Unremarkable. Heart: No significant findings. ABDOMEN: Liver: 2.2 cm segment eight hepatic hemangioma and 1.7 cm caudate lobe hemangioma. No other suspicious liver lesions. Gallbladder: Decompressed. Biliary ducts: Nondilated. Pancreas: Normal. Spleen: Normal. Adrenal Glands: No nodules. Kidneys and Ureters: Symmetric enhancement. No nephrolithiasis or hydronephrosis. No hydroureter. Stomach and Bowel: Stomach and small bowel loops are normal. There is mild mucosal hyperemia and wall thickening of a long segment of the proximal and transverse colon without significant pericolonic inflammatory changes. Normal appendix. Peritoneum: No abnormal intraperitoneal fluid. No free air. Ventral Wall: Tiny fat containing umbilical hernia. Abdominal Nodes: No retroperitoneal or mesenteric adenopathy by size criteria. Vessels: Aorta and inferior vena cava are normal in size. PELVIS: Pelvic Organs: Normal uterus. Peripherally vascular left ovarian follicle. The right ovary is not well seen. Trace, likely physiologic fluid in the right posterior pelvis. Bladder: Normal wall thickness. Pelvic Nodes: No enlarged lymph nodes. Miscellaneous: No hernias are seen. Bones: Unremarkable. IMPRESSION: 1. Normal appendix. 2. Findings suggesting mild long segment ascending and transverse colitis. Likely infectious or inflammatory. 3. Left ovarian corpus luteum. 4. Hepatic hemangiomas. Dictated by: Rachel White M.D. on 04/02/2022 at 12:39 Approved by: Rachel White M.D. on 04/02/2022 at 12:46
[2022-04-02 13:38] VITALS: BP 129/89; PULSE 67; O2SAT 100
== END 2022-04-02 13:43 | disposition home or self-care (01) ==
PROVIDERS: Emergency Provider Emergency Medicine; PCP Family Medicine
DX: N39.0 Urinary tract infection, site not specified (principal); R10.30 Lower abdominal pain, unspecified; M54.50 Low back pain, unspecified
CPT/HCPCS: 36415; 74177; 80053; 81001; 83690; 85025; 87086; 99284; Q9967

== ENCOUNTER → 2022-05-14 07:30 | Outpatient (CLI) | payer OTHER, MEDICAID, SELFPAY ==
[2020-04-25 14:01] VITALS: BMI 26.1
--- NOTE | 2022-05-14 07:33 | DI.US.S_ITS ---
PROCEDURE: US PELVIC COMPLETE INDICATIONS: pelvic pain TECHNIQUE: Real-time scanning was performed of the pelvic organs, with image documentation. Additional endovaginal scanning was necessary due to incomplete visualization of the adnexal and endometrial structures by transabdominal scanning. COMPARISON: [facility], CT, CT ABDOMEN PELVIS W CON, 04/02/2022, 12:13. [facility], US, US PELVIC COMPLETE, 05/21/2021, 11:05. FINDINGS: Uterus: Per the pediatric dental hygienist worksheet, patient has undergone prior partial hysterectomy. Visualized cervix is unremarkable sonographically. Ovaries: The right ovary measures 2.2 x 2.1 x 1.1 cm, with a calculated ovarian volume of 3 cc. The left ovary measures 2.4 x 2.4 x 1.6 cm, with a calculated ovarian volume of 5 cc. The ovaries have an unremarkable sonographic appearance. Less than 12 follicles can be seen in each ovary. No adnexal masses are seen. Other: No pathologic free abdominal or pelvic fluid. IMPRESSION: 1. Prior partial hysterectomy. 2. Unremarkable sonographic appearance of the ovaries. No adnexal mass visualized. We strive to produce accurate, complete, and clear reports of imaging services. To assist us in improving patient care, this report was composed using standard report templates and voice recognition software. Therefore, it may contain abnormal punctuation, insertions and/or omissions. Occasional wrong-word or sound-alike substitutions may occur. Though we review the report and make efforts to correct it, we do recommend that the report be read carefully in proper context to recognize any text inaccuracies. Dictated by: Michael Raza M.D. on 05/14/2022 at 9:18 Approved by: Michael Raza M.D. on 05/14/2022 at 9:26
== END ==
PROVIDERS: PCP Family Medicine; Referring Provider Obstetrics & Gynecology; Visit Provider Obstetrics & Gynecology
DX: R10.2 Pelvic and perineal pain (principal); N83.202 Unspecified ovarian cyst, left side
CPT/HCPCS: 76830; 76856; 93976

== ENCOUNTER 2022-09-02 08:53 | Emergency (ER) | payer OTHER, MEDICAID, SELFPAY ==
[2020-04-25 14:01] VITALS: BMI 26.1
[2022-09-02 08:56] VITALS: BP 141/84; PULSE 80; RESP 15; TEMP 36.6; O2SAT 99; BMI 24.2
[2022-09-02 08:58] VITALS: BP 141/84; PULSE 81; O2SAT 100
[2022-09-02 09:00] VITALS: BP 135/76; PULSE 78; RESP 13; O2SAT 99
--- NOTE | 2022-09-02 09:04 | DI.RAD.S_ITS ---
PROCEDURE: XR CHEST 2V INDICATIONS: SOB TECHNIQUE: 2 views of the chest were acquired. COMPARISON: [facility], CR, XR CHEST 2V, 02/01/2019, 16:47. FINDINGS: Surgical changes and devices: None. Lungs and pleura: Lungs are clear. No pleural effusions or pneumothorax. Mediastinum: Mediastinal contours are normal. Heart size is normal. Bones and chest wall: No suspicious bony abnormalities. Soft tissues appear unremarkable. IMPRESSION: No acute pulmonary process. Dictated by: Sandrita Eckert M.D. on 09/02/2022 at 10:04 Approved by: Sandrita Eckert M.D. on 09/02/2022 at 10:04
--- NOTE | 2022-09-02 09:05 | ED.CHESTPAIN ---
HPI - Chest Pain General Chief Complaint: Chest Pain Stated Complaint: chest pain T-1/dizzy/headache/numbfingertips T-30 Time Seen by Provider: 09/02/22 09:02 Source: patient Mode of arrival: Ambulatory Limitations: no limitations History of Present Illness HPI narrative: 47-year-old female nonsmoker with history of asthma presents with a friend and a chief complaint of some central chest pressure that has been present for the past few days. She states that it seems to be worse with deep breath and with palpation. She denies any radiation of her discomfort. She denies dizziness, weakness or lightheadedness. She denies any runny nose, sore throat or cough. She denies recent travel, injury, trauma, use of hormone replacement, history of blood clot or cancer. She denies exertional symptoms. She denies any exercise intolerance. Related Data Home Medications Medication Instructions Recorded Confirmed citalopram 20 mg tablet 10 mg PO QPM ##0 05/11/17 06/18/22 albuterol sulfate 90 mcg/actuation 2 puff inhalation Q4H PRN 09/23/17 06/18/22 aerosol inhaler Shortness Of Breath beclomethasone dipropionate 80 mcg inhalation 05/21/19 06/18/22 mcg/actuation aerosol inhaler chlorpheniramine maleate 4 mg 4 mg PO Q6H PRN Allergies 03/04/20 06/18/22 tablet (Allergy (chlorpheniramine)) montelukast 10 mg tablet 10 mg PO DAILY 03/04/20 06/18/22 Previous Rx's Medication Instructions Recorded losartan 50 mg tablet 50 mg PO QDAY #30 tabs 02/10/16 ipratropium 0.5 mg-albuterol 3 mg 3 ml inhalation Q4-6H PRN 02/01/19 (2.5 mg base)/3 mL nebulization shortness of breath or wheezing soln #90 mL norgestimate 0.25 mg-ethinyl See Rx Instructions .Route 09/07/19 estradiol 35 mcg tablet (Estarylla) .COMPLEX #84 tabs cyclobenzaprine 5 mg tablet 5 mg PO TID PRN muscle spasm #5 07/28/21 tabs ketorolac 10 mg tablet 10 mg PO Q6H PRN pain #14 tabs 09/02/22 Allergies Allergy/AdvReac Type Severity Reaction Status Date / Time shellfish derived Allergy Severe Difficulty Verified 09/02/22 09:01 Breathing loratadine [LORATADINE] Allergy Intermediate Verified 09/02/22 09:01 ethinyl estradiol AdvReac Mild Nausea Verified 09/02/22 09:01 [From Sprintec (28)] (been several years since taken) norgestimate AdvReac Mild Nausea Verified 09/02/22 09:01 [From Sprintec (28)] (been several years since taken) Review of Systems Review of Systems Narrative: GENERAL: Denies chills, fatigue, malaise, fever, sweats. HEENT: Denies sinus pain, ear pain, sore throat, difficulty swallowing, dizziness. RESPIRATORY: Denies dyspnea, cough, wheezing, hemoptysis, sputum. CARDIOVASCULAR: See HPI GASTROINTESTINAL: Denies nausea, vomiting, abdominal pain, diarrhea, constipation, melena. : Denies dysuria, frequency, incontinence, hematuria, urinary retention. MUSCULOSKELETAL: denies weakness, joint pain, or bony pain SKIN: Denies rash, skin lesions, or other NEUROLOGIC: Denies weakness, headache, numbness, change in speech, confusion, seizures, incoordination. PSYCHIATRIC: No concerning psychosocial issues. 12 point review of systems is negative except for those stated above Patient History Medical History Ankle fracture, left (12/15/18) Asthma Fibroid, uterine Fibroids HTN (hypertension) Ovarian cyst Surgical History History of open reduction and internal fixation (ORIF) procedure (12/22/18) History of third molar tooth extraction Status post hysterectomy Family History Mother Cancer Social History household members: significant other Smoking Status: Never smoker alcohol intake: current Smoking Status: Never smoker alcohol intake frequency: a few times a week Substance Use Type: marijuana Exam Narrative Exam Narrative: GENERAL: 47] year old patient appears stated age. Well-developed patient, in mild distress. HEAD: Atraumatic. Normocephalic. EYES: Pupils equal round and reactive. Extraocular motions intact. No scleral icterus. No injection or drainage. ENT: Nose without bleeding, purulent drainage. Throat without erythema, tonsillar hypertrophy or exudate. Airway patent. NECK: Trachea midline. Non tender CARDIOVASCULAR: Regular rate and rhythm without murmurs, gallops, or rubs. Chest pain reproducible on palpation, she does state that the pain that is reproduced by palpation is the same pain that brought her in RESPIRATORY: Clear to auscultation. Breath sounds equal bilaterally. No wheezes, rales, or rhonchi. GASTROINTESTINAL: Abdomen soft, non-tender, nondistended. EXTREMITIES: No edema or joint tenderness. BACK: Nontender without deformity or crepitance. No flank tenderness. NEURO: AOx3. SKIN: No rash or erythema of visible areas Initial Vital Signs Initial Vital Signs: Vital Signs Temperature 97.9 F 09/02/22 08:56 Pulse Rate 80 09/02/22 08:56 Respiratory Rate 15 09/02/22 08:56 Blood Pressure 141/84 H 09/02/22 08:56 Pulse Oximetry 99 09/02/22 08:56 Oxygen Delivery Method Room Air 09/02/22 08:56 Scores HEART Score Heart Score history: Slightly Suspicious Heart Score EKG: Normal Heart Score Age: < 45 years old Heart Score risk factors: 1-2 risk factors Heart Score troponin: < or = to normal limit Heart Score Total: 1 PERC Score Age greater than or equal to 50 years: No Heart rate greater than or equal to 100 bpm: No Room Air O2 Sat less than 95%: No Unilateral leg swelling: No Recent trauma or surgery: No Hemoptysis: No Prior PE or DVT: No Hormone Use: No Total PERC Score: 0 Course Orders Ordered: ED Orders 09/02/22 09:00 C-Reactive Protein Quant Stat Complete Blood Count AUTO DIFF Stat Comprehensive Metabolic Panel Stat Magnesium Stat NT-proBNP (BNP-Adult 18+) Stat Troponin & CK Cardiac Panel Stat 09/02/22 09:04 XR chest 2V Stat EKG-12 Lead Stat Discontinued Medications Albuterol/Ipratropium (Albuterol/Ipratropium 3 Ml Ampul) 3 ml INH NOW ONE Stop: 09/02/22 09:03 Last Admin: 09/02/22 09:11 Dose: 3 ml Documented By: CHUN Ketorolac Tromethamine (Ketorolac 30 Mg/Ml Vial) 15 mg IV NOW ONE Stop: 09/02/22 09:03 Last Admin: 09/02/22 09:24 Dose: 15 mg Documented By: PAULA Vital Signs Vital signs: Vital Signs - 8 hr 09/02/22 08:56 09/02/22 09:11 09/02/22 08:58 Temperature 97.9 F Pulse Rate 80 70 Respiratory Rate 15 18 Blood Pressure 141/84 H 141/84 H Pulse Oximetry 99 100 Oxygen Delivery Method Room Air Room Air Oxygen Flow Rate 0 Fraction of Inspired Oxygen 21 09/02/22 08:58 09/02/22 09:00 09/02/22 09:00 Temperature Pulse Rate 81 78 Respiratory Rate 13 Blood Pressure 135/76 Pulse Oximetry 100 99 Oxygen Delivery Method Oxygen Flow Rate Fraction of Inspired Oxygen 09/02/22 09:30 09/02/22 10:00 Temperature Pulse Rate 80 70 Respiratory Rate 20 22 Blood Pressure Pulse Oximetry 99 100 Oxygen Delivery Method Oxygen Flow Rate Fraction of Inspired Oxygen MDM - Chest Pain Lab Data 09/02/22 09:00 09/02/22 09:00 Labs: Lab Results 09/02/22 09/02/22 09/02/22 Range/Units 09:00 09:00 09:00 WBC 7.6 (4.5-11.0) X10^3/uL RBC 4.44 (4.0-5.2) X10^6/uL Hgb 13.0 (12.0-16.0) g/dL Hct 38.9 (36-46) % MCV 87.7 (80-100) fL MCH 29.3 (26-34) PG MCHC 33.5 (30-36) % RDW 13.1 (11.6-14.8) % Plt Count 214 (150-400) X10^3/uL Neut % (Auto) 59.2 (50-75) % Lymph % (Auto) 32.8 (25-40) % [place] % (Auto) 4.6 (3-14) % Eos % (Auto) 2.8 (2-4) % Baso % (Auto) 0.6 (0-2) % Neut # (Auto) 4500 (9182-2788) /uL Lymph # (Auto) 2500 (0120-6556) /uL [place] # (Auto) 300 (0-900) /uL Eos # (Auto) 200 (0-450) /uL Baso # (Auto) 0 (0-100) /uL Sodium 138 (137-145) mmol/L Potassium 3.9 (3.4-5.1) mmol/L Chloride 106 (98-107) mmol/L Carbon Dioxide 24 (22-32) mmol/L BUN 13 (7-17) mg/dL Creatinine 0.79 (0.52-1.04) mg/dL Estimated GFR > 60 (>60) mL/min BUN/Creatinine Ratio 16.5 (6-22) Glucose 113 H (70-100) mg/dL Calcium 8.9 (8.4-10.2) mg/dL Magnesium 2.0 (1.6-2.3) mg/dL Total Bilirubin 1.2 (0.2-1.3) mg/dL AST 20 (14-36) IU/L ALT 16 (<35) IU/L Alkaline Phosphatase 52 (38-126) U/L Total Creatine Kinase 96 (30-135) U/L CK-MB (CK-2) TNP CK-MB (CK-2) Rel Index TNP Troponin I < 0.012 (0.01-0.034) ng/mL C-Reactive Protein 0.7 (<1.0) mg/dL NT-Pro-B Natriuret Pep 119 (<125) pg/mL Total Protein 6.9 (6.3-8.2) g/dL Albumin 4.2 (3.5-5.0) g/dL Globulin 2.7 (1.7-4.1) g/dL Albumin/Globulin Ratio 1.6 (1.0-2.8) ECG Data Interpretation: [0904] EKG is normal sinus rhythm rate [72 ] and free of any signs of ischemia or ectopy. No ST segmental elevation or depression. No T wave inversions MDM Narrative Medical decision making narrative: [47] year old patient presents with reproducible central chest pain in the absence of other symptoms Multiple etiologies for patient's symptoms considered including, but not limited to: Cardiac ischemia, pulmonary embolism, costochondritis, pleurisy, pneumonia versus other Prior Charts reviewed in our EMR Primary Historian: patient Labs reviewed and interpreted by myself: No leukocytosis or left shift, electrolytes and kidney function within normal, inflammatory markers normal, troponin undetectable. Imaging reviewed: Chest x-ray without acute process SCORES: HEART. PERC. Well's. Patient's symptoms improved over duration of stay with above-stated therapies. Cardiac ischemia considered but thought unlikely given history and physical, EKG well within normal, troponin negative, heart score low, no exertional symptoms or exercise intolerance. Pulmonary embolism considered however Wells is low and PERC 0, therefore no indication for DDimer or imaging. Furthermore, pain completely resolved with anti-inflammatories, was reproducible and absent of other symptoms, likely musculoskeletal or inflammatory in nature. Findings and discharge diagnosis discussed with patient/family followed by verbalization of understanding Return precautions discussed with patient/family whom verbalize understanding of diagnosis and plan Discharge Plan Departure Patient Disposition: Home Clinical Impression: Atypical chest pain Instructions: DI for Atypical Chest Pain Activity Restrictions/Additional Instructions: *You have been diagnosed with [atypical chest pain. As we discussed your history and physical exam as well as labs, EKG and imaging are very reassuring and there is no evidence of blood clot, heart attack, pneumonia or other significant diagnosis that would require a specific intervention] *What to do: *Please continue to take your regular medications as directed. [ x] New medication prescriptions sent to your pharmacy: [[facility] ] [ ] New medication written as a paper prescription [ ] No new medications given *Please follow up with your primary care provider in 2-3 days, call for an appointment. Let them know you were seen in the Emergency Department and that we ask that you be seen in follow up. We will electronically transmit a record of today's note if your PCP is in our system *If you do not have a primary care provider please contact the [facility] Resource line at [phone]. They will ask some questions about your medical history and help get you set up with a doctor in the community. *Return to Emergency Department if you should have any new, worsening or concerning symptoms, such as [fever greater than 101 F, shaking chills, worsening pain, persistent vomiting or other bothersome symptoms] Prescriptions: New ketorolac 10 mg tablet 10 mg PO Q6H PRN (Reason: pain) Qty: 14 0RF No Action losartan 50 MG tablet 50 mg PO QDAY Qty: 30 3RF citalopram 20 MG tablet 10 mg PO QPM Qty: 0 norgestimate-ethinyl estradiol [Estarylla] 0.25-35 mg-mcg tablet See Rx Instructions .ROUTE .COMPLEX Qty: 84 3RF Dose Instruction: TAKE 1 TABLET BY MOUTH DAILY CONTINOUSLY SKIP PLACEBOS Rx Instructions: TAKE 1 TABLET BY MOUTH DAILY CONTINOUSLY SKIP PLACEBOS beclomethasone dipropionate 80 mcg/actuation aerosol INHALATION cyclobenzaprine 5 mg tablet 5 mg PO TID PRN (Reason: muscle spasm) Qty: 5 0RF Rx Instructions: Use as needed for back pain, as often as every 8 hours. montelukast 10 mg tablet 10 mg PO DAILY chlorpheniramine maleate [Allergy (chlorpheniramine)] 4 mg tablet 4 mg PO Q6H PRN (Reason: Allergies) ipratropium-albuterol 0.5 mg-3 mg(2.5 mg base)/3 mL solution for nebulization 3 ml INHALATION Q4-6H PRN (Reason: shortness of breath or wheezing) Qty: 90 0RF albuterol sulfate 90 mcg/actuation HFA aerosol inhaler 2 puff Inhalation Q4H PRN (Reason: Shortness Of Breath) Patient Comments: INHALE 2 PUFFS PO Q 4 H PRF SOB OR WHEEZING Referrals: Miscellaneous,Doctor, MD [Primary Care Provider] - Stand Alone Forms: Patient Portal/API
[2022-09-02 09:11] VITALS: PULSE 70; RESP 18; O2SAT 100
[2022-09-02] MEDS: ALBUTEROL/IPRATROPIUM 3 ML AMPUL INH (09:11)
[2022-09-02 09:19] LABS: Add Manual Diff / Slide Review NO; Basophils Absolute Auto 0 /uL (0-100); Basophils Percent Auto 0.6 % (0-2); Eosinophils Absolute Auto 200 /uL (0-450); Eosinophils Percent Auto 2.8 % (2-4); Hematocrit 38.9 % (36-46); Lymphocytes Absolute Auto 2500 /uL (1100-4500); Lymphocytes Percent Auto 32.8 % (25-40); Mean Corpuscular HGB Conc 33.5 % (30-36); Mean Corpuscular Hemoglobin 29.3 PG (26-34); Mean Corpuscular Volume 87.7 fL (80-100); Monocytes Absolute Auto 300 /uL (0-900); Monocytes Percent Auto 4.6 % (3-14); Neutrophils Absolute Auto 4500 /uL (1500-7000); Neutrophils Percent Auto 59.2 % (50-75); Platelet Count 214 X10^3/uL (150-400); Red Blood Cell Count 4.44 X10^6/uL (4.0-5.2); Red Cell Distribution Width 13.1 % (11.6-14.8); White Blood Cell Count 7.6 X10^3/uL (4.5-11.0)
[2022-09-02] MEDS: KETOROLAC 30 MG/ML VIAL 15 MG IV (09:24)
[2022-09-02 09:28] LABS: Creatine Kinase 96 U/L (30-135)
[2022-09-02 09:30] VITALS: PULSE 80; RESP 20; O2SAT 99
[2022-09-02 09:41] LABS: NT-proBNP (BNP-Adult 18+) 119 pg/mL (<125); Troponin I < 0.012 ng/mL (0.01-0.034)
[2022-09-02 09:57] LABS: Alanine Aminotransferase 16 IU/L (<35); Albumin 4.2 g/dL (3.5-5.0); Albumin Globulin Ratio 1.6 (1.0-2.8); Alkaline Phosphatase 52 U/L (38-126); Aspartate Aminotransferase 20 IU/L (14-36); BUN Creatinine Ratio 16.5 (6-22); Bilirubin Total 1.2 mg/dL (0.2-1.3); Blood Urea Nitrogen 13 mg/dL (7-17); C-Reactive Protein Quant 0.7 mg/dL (<1.0); Calcium 8.9 mg/dL (8.4-10.2); Carbon Dioxide 24 mmol/L (22-32); Chloride 106 mmol/L (98-107); Estimated Glomerular Filt Rate > 60 mL/min (>60); Globulin 2.7 g/dL (1.7-4.1); Glucose 113 mg/dL (70-100); HEMOLYSIS < 15 (0-50); Potassium 3.9 mmol/L (3.4-5.1); Sodium 138 mmol/L (137-145); Total Protein 6.9 g/dL (6.3-8.2)
[2022-09-02 10:00] VITALS: PULSE 70; RESP 22; O2SAT 100
== END 2022-09-02 11:48 | disposition home or self-care (01) ==
PROVIDERS: Emergency Provider Emergency Medicine
DX: R07.89 Other chest pain (principal)
CPT/HCPCS: 36415; 71046; 80053; 82550; 83735; 83880; 84484; 85025; 86140; 93005; 93010; 94640; 96374; 99284; J1885

== ENCOUNTER 2023-05-17 17:06 | Emergency (ER) | payer OTHER, MEDICAID, SELFPAY ==
[2020-04-25 14:01] VITALS: BMI 26.1
[2023-05-17 17:28] VITALS: BP 138/82; PULSE 94; RESP 18; TEMP 37.3; O2SAT 98; BMI 25.0
--- NOTE | 2023-05-17 17:33 | DI.RAD.S_ITS ---
PROCEDURE: XR CHEST 1V INDICATIONS: chest pain TECHNIQUE: One view of the chest was acquired. COMPARISON: [facility], CR, XR CHEST 2V, 09/02/2022, 9:06. [facility], CR, XR CHEST 2V, 02/01/2019, 16:47. FINDINGS: Surgical changes and devices: None. Lungs and pleura: Lungs are clear. No pleural effusions or pneumothorax. Mediastinum: Mediastinal contours appear normal. Heart size is normal. Bones and chest wall: No suspicious bony lesions. Overlying soft tissues appear unremarkable. IMPRESSION: No acute cardiopulmonary abnormality is seen. Dictated by: Itz Ambrose M.D. on 05/17/2023 at 18:19 Approved by: Itz Ambrose M.D. on 05/17/2023 at 18:19
[2023-05-17] MEDS: ASPIRIN 81 MG CHEW TAB 324 MG PO (17:35)
[2023-05-17 18:27] LABS: Add Manual Diff / Slide Review NO; Basophils Absolute Auto 0 /uL (0-100); Basophils Percent Auto 0.3 % (0-2); Eosinophils Absolute Auto 200 /uL (0-450); Eosinophils Percent Auto 1.7 % (2-4); Hematocrit 42.6 % (36-46); Hemoglobin 14.1 g/dL (12.0-16.0); Lymphocytes Absolute Auto 2200 /uL (1100-4500); Lymphocytes Percent Auto 17.2 % (25-40); Mean Corpuscular HGB Conc 33.1 % (30-36); Mean Corpuscular Hemoglobin 29.3 PG (26-34); Mean Corpuscular Volume 88.6 fL (80-100); Monocytes Absolute Auto 600 /uL (0-900); Monocytes Percent Auto 4.4 % (3-14); Neutrophils Absolute Auto 9800 /uL (1500-7000); Neutrophils Percent Auto 76.4 % (50-75); Platelet Count 267 X10^3/uL (150-400); Red Blood Cell Count 4.81 X10^6/uL (4.0-5.2); Red Cell Distribution Width 13.4 % (11.6-14.8); White Blood Cell Count 12.9 X10^3/uL (4.5-11.0)
[2023-05-17 18:35] LABS: PTT Partial Thromboplastin Tim 31 SECONDS (25.1-36.5)
[2023-05-17 18:39] LABS: Alanine Aminotransferase 11 IU/L (<35); Albumin 4.6 g/dL (3.5-5.0); Albumin Globulin Ratio 1.3 (1.0-2.8); Alkaline Phosphatase 72 U/L (38-126); Aspartate Aminotransferase 19 IU/L (14-36); BUN Creatinine Ratio 21.3 (6-22); Bilirubin Total 0.6 mg/dL (0.2-1.3); Blood Urea Nitrogen 16 mg/dL (7-17); Carbon Dioxide 27 mmol/L (22-32); Chloride 101 mmol/L (98-107); Creatine Kinase 45 U/L (30-135); Estimated Glomerular Filt Rate > 60 mL/min (>60); Globulin 3.6 g/dL (1.7-4.1); Glucose 93 mg/dL (70-100); HEMOLYSIS < 15 (0-50); Lipase 82 U/L (23-300); Magnesium 1.9 mg/dL (1.6-2.3); Potassium 4.5 mmol/L (3.4-5.1); Sodium 137 mmol/L (137-145); Total Protein 8.2 g/dL (6.3-8.2)
[2023-05-17 18:51] LABS: Troponin I < 0.012 ng/mL (0.01-0.034)
[2023-05-17 19:40] VITALS: BP 121/86; PULSE 76; O2SAT 98
--- NOTE | 2023-05-17 19:55 | ED.GENADULT ---
HPI - General Adult General Chief complaint: Shortness of Breath/Dyspnea Stated complaint: Covid+ x 5 days, getting worse Time Seen by Provider: 05/17/23 19:37 Source: patient Mode of arrival: Ambulatory History of Present Illness HPI narrative: Patient is a 48-year-old female. Five days ago she tested positive for COVID after developing a cough and fevers and shortness of breath. She does have history of asthma. She has a an albuterol inhaler at home and a nebulizer but does not have any medications for a nebulizer. She has needed to use her nebulizer more often over the past 5 days. She was here she states that she is not feeling much better despite maux-[id number]-[id number] medications and Tylenol and time. She has been quarantine herself Related Data Home Medications Medication Instructions Recorded Confirmed citalopram 20 mg tablet 10 mg PO QPM ##0 05/11/17 06/18/22 albuterol sulfate 90 mcg/actuation 2 puff inhalation Q4H PRN 09/23/17 06/18/22 aerosol inhaler Shortness Of Breath beclomethasone dipropionate 80 mcg inhalation 05/21/19 06/18/22 mcg/actuation aerosol inhaler chlorpheniramine maleate 4 mg 4 mg PO Q6H PRN Allergies 03/04/20 06/18/22 tablet (Allergy (chlorpheniramine)) montelukast 10 mg tablet 10 mg PO DAILY 03/04/20 06/18/22 Previous Rx's Medication Instructions Recorded losartan 50 mg tablet 50 mg PO QDAY #30 tabs 02/10/16 ipratropium 0.5 mg-albuterol 3 mg 3 ml inhalation Q4-6H PRN 02/01/19 (2.5 mg base)/3 mL nebulization shortness of breath or wheezing soln #90 mL norgestimate 0.25 mg-ethinyl See Rx Instructions .Route 09/07/19 estradiol 35 mcg tablet (Estarylla) .COMPLEX #84 tabs cyclobenzaprine 5 mg tablet 5 mg PO TID PRN muscle spasm #5 07/28/21 tabs ketorolac 10 mg tablet 10 mg PO Q6H PRN pain #14 tabs 09/02/22 albuterol sulfate 2.5 mg/3 mL 2.5 mg (3 mL) inhalation Q4H PRN 05/17/23 (0.083 %) solution for nebulization shortness of breath or wheezing #75 mL Allergies Allergy/AdvReac Type Severity Reaction Status Date / Time shellfish derived Allergy Severe Difficulty Verified 09/02/22 09:01 Breathing loratadine [LORATADINE] Allergy Intermediate Verified 09/02/22 09:01 ethinyl estradiol AdvReac Mild Nausea Verified 09/02/22 09:01 [From Sprintec (28)] (been several years since taken) norgestimate AdvReac Mild Nausea Verified 09/02/22 09:01 [From Sprintec (28)] (been several years since taken) Review of Systems Constitutional Constitutional: Reports system reviewed and no additional complaints, except as documented Respiratory Respiratory: Reports system reviewed and no additional complaints, except as documented Gastrointestinal Gastrointestinal: Reports system reviewed and no additional complaints, except as documented Integumentary/Breasts Skin/Breast: Reports system reviewed and no additional complaints, except as documented Hematologic/Lymphatic On Anticoagulants: No Patient History Medical History Fibroid, uterine Ovarian cyst Fibroids Ankle fracture, left (12/15/18) Asthma HTN (hypertension) Surgical History History of open reduction and internal fixation (ORIF) procedure (12/22/18) History of third molar tooth extraction Status post hysterectomy Family History Mother Cancer Social History household members: significant other Smoking Status: Never smoker alcohol intake: current Smoking Status: Never smoker alcohol intake frequency: a few times a week Substance Use Type: marijuana Exam Initial Vital Signs Initial Vital Signs: Vital Signs Temperature 99.1 F 05/17/23 17:28 Pulse Rate 94 H 05/17/23 17:28 Respiratory Rate 18 05/17/23 17:28 Blood Pressure 138/82 05/17/23 17:28 Pulse Oximetry 98 05/17/23 17:28 Oxygen Delivery Method Room Air 05/17/23 17:28 Resp Effort & Inspection: normal respiratory effort and no cough Auscultation: clear to auscultation bilaterally and no wheezes Cardio Rate: regular rate Skin General: no rashes or lesions noted Neuro General: patient alert, patient awake and moves all extremities Extrem General: capillary refill normal Course Orders Ordered: ED Orders 05/17/23 17:33 XR chest 1V Stat 05/17/23 17:50 EKG-12 Lead Routine EKG-12 Lead Stat 05/17/23 18:15 Complete Blood Count AUTO DIFF Stat Comprehensive Metabolic Panel Stat Lipase Stat Magnesium Stat PTT Partial Thromboplastin Ricardo Stat Prothrombin Time INR Stat Troponin & CK Cardiac Panel Stat Discontinued Medications Aspirin (Aspirin 81 Mg Chew Tab) 324 mg PO NOW ONE Stop: 05/17/23 17:34 Last Admin: 05/17/23 17:35 Dose: 324 mg Documented By: ELIZA Vital Signs Vital signs: Vital Signs - 8 hr 05/17/23 17:28 05/17/23 19:40 05/17/23 19:40 Temperature 99.1 F Pulse Rate 94 H 76 Respiratory Rate 18 Blood Pressure 138/82 121/86 Pulse Oximetry 98 98 Oxygen Delivery Method Room Air Room Air Medical Decision Making Lab Data Lab results reviewed: Yes I reviewed the patient's lab results. 05/17/23 18:15 05/17/23 18:15 Labs: Lab Results 05/17/23 Range/Units 18:15 WBC 12.9 H (4.5-11.0) X10^3/uL RBC 4.81 (4.0-5.2) X10^6/uL Hgb 14.1 (12.0-16.0) g/dL Hct 42.6 (36-46) % MCV 88.6 (80-100) fL MCH 29.3 (26-34) PG MCHC 33.1 (30-36) % RDW 13.4 (11.6-14.8) % Plt Count 267 (150-400) X10^3/uL Neut % (Auto) 76.4 H (50-75) % Lymph % (Auto) 17.2 L (25-40) % [place] % (Auto) 4.4 (3-14) % Eos % (Auto) 1.7 L (2-4) % Baso % (Auto) 0.3 (0-2) % Neut # (Auto) 9800 H (5642-1898) /uL Lymph # (Auto) 2200 (4249-5988) /uL [place] # (Auto) 600 (0-900) /uL Eos # (Auto) 200 (0-450) /uL Baso # (Auto) 0 (0-100) /uL PT 12.0 (9.4-12.5) SECONDS INR 1.0 (0.9-1.3) APTT 31 (25.1-36.5) SECONDS Sodium 137 (137-145) mmol/L Potassium 4.5 (3.4-5.1) mmol/L Chloride 101 (98-107) mmol/L Carbon Dioxide 27 (22-32) mmol/L BUN 16 (7-17) mg/dL Creatinine 0.75 (0.52-1.04) mg/dL Estimated GFR > 60 (>60) mL/min BUN/Creatinine Ratio 21.3 (6-22) Glucose 93 (70-100) mg/dL Calcium 10.0 (8.4-10.2) mg/dL Magnesium 1.9 (1.6-2.3) mg/dL Total Bilirubin 0.6 (0.2-1.3) mg/dL AST 19 (14-36) IU/L ALT 11 (<35) IU/L Alkaline Phosphatase 72 (38-126) U/L Total Creatine Kinase 45 (30-135) U/L Troponin I < 0.012 (0.01-0.034) ng/mL Total Protein 8.2 (6.3-8.2) g/dL Albumin 4.6 (3.5-5.0) g/dL Globulin 3.6 (1.7-4.1) g/dL Albumin/Globulin Ratio 1.3 (1.0-2.8) Lipase 82 (23-300) U/L Imaging Data Chest x-ray: Radiologist's Impression: PROCEDURE: XR CHEST 1V INDICATIONS: chest pain TECHNIQUE: One view of the chest was acquired. COMPARISON: [facility], CR, XR CHEST 2V, 09/02/2022, 9:06. [facility], CR, XR CHEST 2V, 02/01/2019, 16:47. FINDINGS: Surgical changes and devices: None. Lungs and pleura: Lungs are clear. No pleural effusions or pneumothorax. Mediastinum: Mediastinal contours appear normal. Heart size is normal. Bones and chest wall: No suspicious bony lesions. Overlying soft tissues appear unremarkable. IMPRESSION: No acute cardiopulmonary abnormality is seen. MDM Narrative Medical decision making narrative: She does have a history of asthma however today she has not hypoxic. No respiratory distress. No wheezing. She is positive for COVID per home test. Her chest x-ray today is unremarkable. There was no indication for antibiotics. She is outside of the timeframe for Paxlovid. I will refill her albuterol for her nebulizer. No indication for admission to the hospital. Provided reassurance. She was given return precautions. She expressed understanding and agreement. Discharge Plan Departure Patient Disposition: Home Clinical Impression: COVID-19 Instructions: COVID-19 Activity Restrictions/Additional Instructions: I do recommend that you continue with Tylenol/ibuprofen for any fevers or body aches. Be sure you are staying hydrated. Use your albuterol as needed. Return to the emergency department for new symptoms. Prescriptions: New albuterol sulfate 2.5 mg /3 mL (0.083 %) solution for nebulization 2.5 mg inhalation Q4H PRN (Reason: shortness of breath or wheezing) Qty: 75 0RF No Action losartan 50 MG tablet 50 mg PO QDAY Qty: 30 3RF citalopram 20 MG tablet 10 mg PO QPM Qty: 0 norgestimate-ethinyl estradiol [Estarylla] 0.25-35 mg-mcg tablet See Rx Instructions .ROUTE .COMPLEX Qty: 84 3RF Dose Instruction: TAKE 1 TABLET BY MOUTH DAILY CONTINOUSLY SKIP PLACEBOS Rx Instructions: TAKE 1 TABLET BY MOUTH DAILY CONTINOUSLY SKIP PLACEBOS beclomethasone dipropionate 80 mcg/actuation aerosol INHALATION cyclobenzaprine 5 mg tablet 5 mg PO TID PRN (Reason: muscle spasm) Qty: 5 0RF Rx Instructions: Use as needed for back pain, as often as every 8 hours. montelukast 10 mg tablet 10 mg PO DAILY chlorpheniramine maleate [Allergy (chlorpheniramine)] 4 mg tablet 4 mg PO Q6H PRN (Reason: Allergies) ipratropium-albuterol 0.5 mg-3 mg(2.5 mg base)/3 mL solution for nebulization 3 ml INHALATION Q4-6H PRN (Reason: shortness of breath or wheezing) Qty: 90 0RF ketorolac 10 mg tablet 10 mg PO Q6H PRN (Reason: pain) Qty: 14 0RF albuterol sulfate 90 mcg/actuation HFA aerosol inhaler 2 puff Inhalation Q4H PRN (Reason: Shortness Of Breath) Patient Comments: INHALE 2 PUFFS PO Q 4 H PRF SOB OR WHEEZING Referrals: Yuliet Pink MD [Primary Care Provider] - Stand Alone Forms: Patient Portal/API
== END 2023-05-17 20:04 | disposition home or self-care (01) ==
PROVIDERS: Emergency Medicine; Emergency Provider Emergency Medicine; PCP Urology
DX: U07.1 COVID-19 (principal); R07.9 Chest pain, unspecified
CPT/HCPCS: 71045; 80053; 82550; 83690; 83735; 84484; 85025; 85610; 85730; 93005; 93010; 99283; 99284

== ENCOUNTER → 2023-07-30 17:47 | Outpatient (CLI) | payer OTHER, MEDICAID, SELFPAY ==
[2020-04-25 14:01] VITALS: BMI 26.1
--- NOTE | 2023-07-30 17:52 | DI.RAD.S_ITS ---
PROCEDURE: XR CHEST 2V INDICATIONS: Cough, chest congestion, HX asthma TECHNIQUE: 2 views of the chest were acquired. COMPARISON: [facility], CR, XR CHEST 1V, 05/17/2023, 17:50. FINDINGS: Surgical changes and devices: None. Lungs and pleura: Lungs are clear. No pleural effusions or pneumothorax. Mediastinum: Mediastinal contours are normal. Heart size is normal. Bones and chest wall: No suspicious bony abnormalities. Soft tissues appear unremarkable. IMPRESSION: No acute cardiopulmonary abnormality is seen. Dictated by: Dale Randle M.D. on 07/30/2023 at 17:05 Approved by: Dael Radnle M.D. on 07/30/2023 at 17:08
== END ==
PROVIDERS: PCP Urology; Referring Provider Physician Assistant Surgical; Visit Provider Physician Assistant Surgical
DX: R05.9 Cough, unspecified (principal)
CPT/HCPCS: 71046

== ENCOUNTER 2023-08-25 08:13 | Emergency (ER) | payer OTHER, MEDICAID, SELFPAY ==
[2020-04-25 14:01] VITALS: BMI 26.1
[2023-08-25 08:26] VITALS: BP 138/93; PULSE 81; O2SAT 95
[2023-08-25 08:30] VITALS: BP 138/90; PULSE 77; O2SAT 95
[2023-08-25 08:38] VITALS: BP 138/93; PULSE 84; RESP 18; TEMP 37.1; O2SAT 94; BMI 25.0
--- NOTE | 2023-08-25 08:43 | DI.RAD.S_ITS ---
PROCEDURE: XR CHEST 1V INDICATIONS: chest pain TECHNIQUE: One view of the chest was acquired. COMPARISON: [facility], CR, XR CHEST 2V, 07/30/2023, 17:52. FINDINGS: Surgical changes and devices: None. Lungs and pleura: Lungs are clear. No pleural effusions or pneumothorax. Mediastinum: Mediastinal contours appear normal. Heart size is normal. Bones and chest wall: No suspicious bony lesions. Overlying soft tissues appear unremarkable. IMPRESSION: No acute pulmonary process. Dictated by: Sandrita Eckert M.D. on 08/25/2023 at 9:20 Approved by: Sandrita Eckert M.D. on 08/25/2023 at 9:23
[2023-08-25 09:00] VITALS: BP 135/85; PULSE 69; RESP 17; O2SAT 94
[2023-08-25 09:06] LABS: Add Manual Diff / Slide Review NO; Basophils Absolute Auto 100 /uL (0-100); Basophils Percent Auto 1.1 % (0-2); Eosinophils Absolute Auto 400 /uL (0-450); Eosinophils Percent Auto 5.9 % (2-4); Hematocrit 38.4 % (36-46); Hemoglobin 12.9 g/dL (12.0-16.0); Lymphocytes Absolute Auto 2800 /uL (1100-4500); Lymphocytes Percent Auto 38.7 % (25-40); Mean Corpuscular HGB Conc 33.7 % (30-36); Mean Corpuscular Hemoglobin 29.7 PG (26-34); Mean Corpuscular Volume 88.2 fL (80-100); Monocytes Absolute Auto 300 /uL (0-900); Monocytes Percent Auto 3.7 % (3-14); Neutrophils Absolute Auto 3700 /uL (1500-7000); Neutrophils Percent Auto 50.6 % (50-75); Platelet Count 270 X10^3/uL (150-400); Red Blood Cell Count 4.35 X10^6/uL (4.0-5.2); Red Cell Distribution Width 13.1 % (11.6-14.8); White Blood Cell Count 7.2 X10^3/uL (4.5-11.0)
[2023-08-25 09:14] LABS: Alanine Aminotransferase 14 IU/L (<35); Albumin 4.3 g/dL (3.5-5.0); Albumin Globulin Ratio 1.7 (1.0-2.8); Alkaline Phosphatase 57 U/L (38-126); Aspartate Aminotransferase 23 IU/L (14-36); BUN Creatinine Ratio 15.8 (6-22); Bilirubin Total 0.7 mg/dL (0.2-1.3); Blood Urea Nitrogen 12 mg/dL (7-17); Calcium 9.5 mg/dL (8.4-10.2); Carbon Dioxide 26 mmol/L (22-32); Chloride 108 mmol/L (98-107); Creatine Kinase 77 U/L (30-135); Estimated Glomerular Filt Rate > 60 mL/min (>60); Globulin 2.5 g/dL (1.7-4.1); Glucose 91 mg/dL (70-100); HEMOLYSIS < 15 (0-50); Lipase 75 U/L (23-300); Sodium 138 mmol/L (137-145); Total Protein 6.8 g/dL (6.3-8.2)
--- NOTE | 2023-08-25 09:22 | ED_ITS ---
HPI - Chest Pain General Chief Complaint: Chest Pain Stated Complaint: sharp pain l side neck and chest Time Seen by Provider: 08/25/23 08:52 Source: patient Mode of arrival: Ambulatory Limitations: no limitations History of Present Illness HPI narrative: Patient is a 48-year-old female here for evaluation of left-sided chest discomfort, left-sided neck and back of neck discomfort and discomfort down the back of her left shoulder blade. She states the symptoms have been going on for the past several days if not a week. She thinks that the symptoms are actually worse when her arm is down. She does have a sore throat. Some chest congestion. No fevers. Related Data Home Medications Medication Instructions Recorded Confirmed citalopram 20 mg tablet 10 mg PO QPM ##0 05/11/17 07/30/23 albuterol sulfate 90 mcg/actuation 2 puff inhalation Q4H PRN 09/23/17 07/30/23 aerosol inhaler Shortness Of Breath beclomethasone dipropionate 80 mcg inhalation 05/21/19 07/30/23 mcg/actuation aerosol inhaler chlorpheniramine maleate 4 mg 4 mg PO Q6H PRN Allergies 03/04/20 07/30/23 tablet (Allergy (chlorpheniramine)) montelukast 10 mg tablet 10 mg PO DAILY 03/04/20 07/30/23 Previous Rx's Medication Instructions Recorded losartan 50 mg tablet 50 mg PO QDAY #30 tabs 02/10/16 ipratropium 0.5 mg-albuterol 3 mg 3 ml inhalation Q4-6H PRN 02/01/19 (2.5 mg base)/3 mL nebulization shortness of breath or wheezing soln #90 mL norgestimate 0.25 mg-ethinyl See Rx Instructions .Route 09/07/19 estradiol 35 mcg tablet (Estarylla) .COMPLEX #84 tabs cyclobenzaprine 5 mg tablet 5 mg PO TID PRN muscle spasm #5 07/28/21 tabs ketorolac 10 mg tablet 10 mg PO Q6H PRN pain #14 tabs 09/02/22 albuterol sulfate 2.5 mg/3 mL 2.5 mg (3 mL) inhalation Q4H PRN 05/17/23 (0.083 %) solution for nebulization shortness of breath or wheezing #75 mL benzonatate 200 mg capsule 200 mg PO BID PRN cough #30 caps 07/30/23 ipratropium bromide 21 mcg (0.03 2 spray intranasal BID PRN allergy 07/30/23 %) nasal spray symptoms #30 mL cyclobenzaprine 10 mg tablet 10 mg PO TID PRN muscle spasm #21 08/25/23 tabs Allergies Allergy/AdvReac Type Severity Reaction Status Date / Time shellfish derived Allergy Severe Difficulty Verified 07/30/23 17:00 Breathing loratadine [LORATADINE] Allergy Intermediate Verified 07/30/23 17:00 ethinyl estradiol AdvReac Mild Nausea Verified 07/30/23 17:00 [From Sprintec (28)] (been several years since taken) norgestimate AdvReac Mild Nausea Verified 07/30/23 17:00 [From Sprintec (28)] (been several years since taken) Review of Systems Review of Systems ROS Unobtainable: All systems reviewed & are unremarkable except as noted in HPI and below Patient History Medical History Fibroid, uterine Ovarian cyst Fibroids Ankle fracture, left (12/15/18) Asthma HTN (hypertension) Surgical History Status post hysterectomy History of open reduction and internal fixation (ORIF) procedure (12/22/18) History of third molar tooth extraction Family History Mother Cancer Social History household members: significant other Smoking Status: Never smoker alcohol intake: current Smoking Status: Never smoker alcohol intake frequency: a few times a week Substance Use Type: marijuana Exam Initial Vital Signs Initial Vital Signs: Vital Signs Pulse Rate 81 08/25/23 08:26 Blood Pressure 138/93 H 08/25/23 08:26 Pulse Oximetry 95 08/25/23 08:26 Const General: cooperative, comfortable and No ill appearing HENMT Head: normal to inspection and normocephalic Ears: TM normal on the left Face and sinus: normal facial exam Mouth: oral mucosae normal, tongue normal and No drooling Throat: posterior oropharynx normal and uvula midline Neck Lymphatic: No lymphadenopathy Resp Effort & Inspection: normal respiratory effort Auscultation: clear to auscultation bilaterally Cardio Rate: regular rate Rhythm: regular rhythm GI Inspection: normal to inspection and non-distended Palpation: soft, No firm and No tender Back/Spine/Pelvis Other: Mild left-sided posterior cervical muscle tenderness Skin General: no rashes or lesions noted Neuro General: patient alert, patient awake and moves all extremities Extrem General: No edema Course Orders Ordered: Discontinued Medications Aspirin (Aspirin 81 Mg Chew Tab) 324 mg PO NOW ONE Stop: 08/25/23 08:44 Vital Signs Vital signs: Vital Signs - 8 hr 08/25/23 08:26 08/25/23 08:26 08/25/23 08:30 Temperature Pulse Rate 81 77 Respiratory Rate Blood Pressure 138/93 H Pulse Oximetry 95 95 Oxygen Delivery Method 08/25/23 08:30 08/25/23 08:38 08/25/23 09:00 Temperature 98.7 F Pulse Rate 84 69 Respiratory Rate 18 17 Blood Pressure 138/90 138/93 H Pulse Oximetry 94 94 Oxygen Delivery Method Room Air 08/25/23 09:00 08/25/23 10:23 Temperature Pulse Rate 68 Respiratory Rate Blood Pressure 135/85 139/86 Pulse Oximetry 97 Oxygen Delivery Method Room Air MDM - Chest Pain Lab Data Attestation: I reviewed the patient's lab results. 08/25/23 08:30 08/25/23 08:30 Labs: Lab Results 08/25/23 Range/Units 08:30 WBC 7.2 (4.5-11.0) X10^3/uL RBC 4.35 (4.0-5.2) X10^6/uL Hgb 12.9 (12.0-16.0) g/dL Hct 38.4 (36-46) % MCV 88.2 (80-100) fL MCH 29.7 (26-34) PG MCHC 33.7 (30-36) % RDW 13.1 (11.6-14.8) % Plt Count 270 (150-400) X10^3/uL Neut % (Auto) 50.6 (50-75) % Lymph % (Auto) 38.7 (25-40) % [place] % (Auto) 3.7 (3-14) % Eos % (Auto) 5.9 H (2-4) % Baso % (Auto) 1.1 (0-2) % Neut # (Auto) 3700 (3474-4975) /uL Lymph # (Auto) 2800 (7835-1277) /uL [place] # (Auto) 300 (0-900) /uL Eos # (Auto) 400 (0-450) /uL Baso # (Auto) 100 (0-100) /uL Sodium 138 (137-145) mmol/L Potassium 4.0 (3.4-5.1) mmol/L Chloride 108 H (98-107) mmol/L Carbon Dioxide 26 (22-32) mmol/L BUN 12 (7-17) mg/dL Creatinine 0.76 (0.52-1.04) mg/dL Estimated GFR > 60 (>60) mL/min BUN/Creatinine Ratio 15.8 (6-22) Glucose 91 (70-100) mg/dL Calcium 9.5 (8.4-10.2) mg/dL Magnesium 2.0 (1.6-2.3) mg/dL Total Bilirubin 0.7 (0.2-1.3) mg/dL AST 23 (14-36) IU/L ALT 14 (<35) IU/L Alkaline Phosphatase 57 (38-126) U/L Total Creatine Kinase 77 (30-135) U/L Troponin I < 0.012 (0.01-0.034) ng/mL Total Protein 6.8 (6.3-8.2) g/dL Albumin 4.3 (3.5-5.0) g/dL Globulin 2.5 (1.7-4.1) g/dL Albumin/Globulin Ratio 1.7 (1.0-2.8) Lipase 75 (23-300) U/L Imaging Data Chest x-ray: Radiologist's Impression: PROCEDURE: XR CHEST 1V INDICATIONS: chest pain TECHNIQUE: One view of the chest was acquired. COMPARISON: [facility], CR, XR CHEST 2V, 07/30/2023, 17:52. FINDINGS: Surgical changes and devices: None. Lungs and pleura: Lungs are clear. No pleural effusions or pneumothorax. Mediastinum: Mediastinal contours appear normal. Heart size is normal. Bones and chest wall: No suspicious bony lesions. Overlying soft tissues appear unremarkable. IMPRESSION: No acute pulmonary process. ECG Data Attestation: I personally reviewed and interpreted this ECG as follows: Interpretation: Sinus rhythm Ventricular rate is 71 Normal axis Normal QRS Normal QTC No ST T wave changes MDM Narrative Medical decision making narrative: Cardiac and respiratory workup here in the emergency department is very reassuring. I have low suspicion for ACS or pneumonia. Her discomfort is on her left upper shoulder and down the left side of her back in distribution of the trapezius muscle. She is fullness in the trapezius muscle on that side. I suspect that her symptoms are muscular in origin. No further workup required here in the ER. No indication for admission to the hospital. Will send home with symptom treatment for now. Discussed things that she could try at home to for the symptoms. She was given return precautions follow-up instructions. She expressed understanding and agreement. Discharge Plan Departure Patient Disposition: Home Clinical Impression: Trapezius muscle strain, Pain in pelvis Instructions: DI for Muscle Strain Activity Restrictions/Additional Instructions: I would recommend light stretching and massage. Also anti-inflammatories such as Motrin or Naprosyn. Use the muscle relaxers as needed as well. Return to the emergency department for new or worsening symptoms Prescriptions: New cyclobenzaprine 10 mg tablet 10 mg PO TID PRN (Reason: muscle spasm) Qty: 21 0RF No Action benzonatate 200 mg capsule 200 mg PO BID PRN (Reason: cough) Qty: 30 0RF ipratropium bromide 21 mcg (0.03 %) spray,non-aerosol 2 spray intranasal BID PRN (Reason: allergy symptoms) Qty: 30 0RF Rx Instructions: administer into each nostril losartan 50 MG tablet 50 mg PO QDAY Qty: 30 3RF citalopram 20 MG tablet 10 mg PO QPM Qty: 0 norgestimate-ethinyl estradiol [Estarylla] 0.25-35 mg-mcg tablet See Rx Instructions .ROUTE .COMPLEX Qty: 84 3RF Dose Instruction: TAKE 1 TABLET BY MOUTH DAILY CONTINOUSLY SKIP PLACEBOS Rx Instructions: TAKE 1 TABLET BY MOUTH DAILY CONTINOUSLY SKIP PLACEBOS beclomethasone dipropionate 80 mcg/actuation aerosol INHALATION cyclobenzaprine 5 mg tablet 5 mg PO TID PRN (Reason: muscle spasm) Qty: 5 0RF Rx Instructions: Use as needed for back pain, as often as every 8 hours. montelukast 10 mg tablet 10 mg PO DAILY chlorpheniramine maleate [Allergy (chlorpheniramine)] 4 mg tablet 4 mg PO Q6H PRN (Reason: Allergies) ipratropium-albuterol 0.5 mg-3 mg(2.5 mg base)/3 mL solution for nebulization 3 ml INHALATION Q4-6H PRN (Reason: shortness of breath or wheezing) Qty: 90 0RF ketorolac 10 mg tablet 10 mg PO Q6H PRN (Reason: pain) Qty: 14 0RF albuterol sulfate 90 mcg/actuation HFA aerosol inhaler 2 puff Inhalation Q4H PRN (Reason: Shortness Of Breath) Patient Comments: INHALE 2 PUFFS PO Q 4 H PRF SOB OR WHEEZING albuterol sulfate 2.5 mg /3 mL (0.083 %) solution for nebulization 2.5 mg inhalation Q4H PRN (Reason: shortness of breath or wheezing) Qty: 75 0RF Referrals: Yuliet Pink MD [Primary Care Provider] - Stand Alone Forms: Patient Portal/API
[2023-08-25 09:24] LABS: Troponin I < 0.012 ng/mL (0.01-0.034)
[2023-08-25 10:23] VITALS: BP 139/86; PULSE 68; O2SAT 97
== END 2023-08-25 10:23 | disposition home or self-care (01) ==
PROVIDERS: Emergency Provider Emergency Medicine; PCP Urology
DX: S29.012A Strain of muscle and tendon of back wall of thorax, initial encounter (principal); R07.89 Other chest pain; R10.2 Pelvic and perineal pain; X58.XXXA Exposure to other specified factors, initial encounter
CPT/HCPCS: 71045; 80053; 82550; 83690; 83735; 84484; 85025; 93005; 99281; 99284

== ENCOUNTER 2024-01-15 12:00 | Emergency (ER) | payer BC, SELFPAY ==
[2020-04-25 14:01] VITALS: BMI 26.1
[2024-01-15 12:05] VITALS: BP 180/100; PULSE 113; RESP 24; TEMP 36.6; O2SAT 95; BMI 24.8
[2024-01-15 12:13] VITALS: PULSE 110; O2SAT 96
[2024-01-15 12:14] VITALS: BP 160/101; PULSE 105; O2SAT 96
--- NOTE | 2024-01-15 12:15 | DI.RAD.S_ITS ---
PROCEDURE: XR CHEST 1V INDICATIONS: Shortness of breath TECHNIQUE: One view of the chest was acquired. COMPARISON: [facility], CR, XR CHEST 1V, 08/25/2023, 9:04. [facility], CR, XR CHEST 2V, 07/30/2023, 17:52. FINDINGS: Surgical changes and devices: None. Lungs and pleura: Lungs are clear. No pleural effusions or pneumothorax. Mediastinum: Mediastinal contours appear normal. Heart size is normal. Bones and chest wall: No suspicious bony lesions. Overlying soft tissues appear unremarkable. IMPRESSION: No acute cardiopulmonary abnormality is seen. Dictated by: Rosa Silver M.D. on 01/15/2024 at 12:26 Approved by: Rosa Silver M.D. on 01/15/2024 at 12:27
--- NOTE | 2024-01-15 12:18 | ED.SEPSIS ---
HPI - Sepsis General Chief Complaint: Shortness of Breath/Dyspnea Mode of arrival: Ambulatory Source: patient Evaluation Sepsis Screen: Possible Sepsis Risk Sepsis Infection Criteria Present: Suspected New Infection Narrative: 48-year-old female with history of asthma, now with 2 days duration of increasing shortness of breath, coughing, used home SVN this morning, little improvement, not currently taking oral systemic steroids, but does take beclomethasone topical steroid inhaler. No known close contact exposures to persons with similar symptoms. Denies chest pain. Review of Systems Review of Systems Narrative: see HPI Patient History Medical History Fibroid, uterine Ovarian cyst Fibroids Ankle fracture, left (12/15/18) Asthma HTN (hypertension) Surgical History Status post hysterectomy History of open reduction and internal fixation (ORIF) procedure (12/22/18) History of third molar tooth extraction Family History Mother Cancer Social History household members: significant other Smoking Status: Never smoker alcohol intake: current Smoking Status: Never smoker alcohol intake frequency: a few times a week Substance Use Type: marijuana Exam Narrative Exam Narrative: GENERAL: Well-developed patient, in mild distress. HEAD: Atraumatic. Normocephalic. EYES: Pupils equal round and reactive. Extraocular motions intact. No scleral icterus. No injection or drainage. ENT: Nose without bleeding, purulent drainage. Throat without erythema, tonsillar hypertrophy or exudate. Airway patent. NECK: Trachea midline. Non tender CARDIOVASCULAR: Regular rate and rhythm without murmurs, gallops, or rubs. RESPIRATORY: Speaks just short of full sentences, bilateral wheezes, some suprasternal retractions, no grunting or flaring, no perioral or peripheral cyanosis GASTROINTESTINAL: Abdomen soft, non-tender, nondistended. EXTREMITIES: No edema or joint tenderness. BACK: Nontender without deformity or crepitance. No flank tenderness. NEURO: AOx3. Motor function grossly nonfocal SKIN: No rash or erythema of visible areas Initial Vital Signs Initial Vital Signs: Vital Signs Temperature 97.8 F 01/15/24 12:05 Pulse Rate 113 H 01/15/24 12:05 Respiratory Rate 24 01/15/24 12:05 Blood Pressure 180/100 H 01/15/24 12:05 Pulse Oximetry 95 01/15/24 12:05 Oxygen Delivery Method Room Air 01/15/24 12:05 Course Orders Ordered: Discontinued Medications Albuterol (Albuterol 2.5 Mg/3 Ml Neb (Adult)) 20 mg INH NOW ONE Stop: 01/15/24 12:21 Last Admin: 01/15/24 12:29 Dose: 20 mg Documented By: MARBELLA Vital Signs Vital signs: Vital Signs - 8 hr 01/15/24 12:05 01/15/24 12:13 01/15/24 12:14 Temperature 97.8 F Pulse Rate 113 H 110 H Respiratory Rate 24 Blood Pressure 180/100 H 160/101 H Pulse Oximetry 95 96 Oxygen Delivery Method Room Air Oxygen Flow Rate Fraction of Inspired Oxygen 01/15/24 12:14 01/15/24 12:30 01/15/24 12:30 Temperature Pulse Rate 105 H 94 H Respiratory Rate 20 Blood Pressure 162/95 H Pulse Oximetry 96 95 Oxygen Delivery Method Room Air Oxygen Flow Rate 0 Fraction of Inspired Oxygen 21 01/15/24 12:30 Temperature Pulse Rate 103 H Respiratory Rate 27 H Blood Pressure Pulse Oximetry 94 Oxygen Delivery Method Room Air Oxygen Flow Rate Fraction of Inspired Oxygen Sepsis Evaluation (ED) Triage Screening Sepsis Screen: Possible Sepsis Risk Level 1 - Infection Sepsis Infection Criteria Present: Suspected New Infection Response It is my opinion that his patient have a likely infectious etiology for meeting sepsis criteria: Does Not Fluid calculation based on 30 mL/kg within 1hr of criteria: N/A Antibiotics initiated within 1 hr of Sepis dx: No Tissue Perfusion Reassessed within 6 hrs of infusion start time: No MDM - Sepsis Lab Data Attestation: I reviewed the patient's lab results. 01/15/24 12:20 01/15/24 12:20 Labs: Lab Results 01/15/24 Range/Units 12:20 WBC 10.1 (4.5-11.0) X10^3/uL RBC 4.51 (4.0-5.2) X10^6/uL Hgb 13.7 (12.0-16.0) g/dL Hct 40.4 (36-46) % MCV 89.5 (80-100) fL MCH 30.3 (26-34) PG MCHC 33.8 (30-36) % RDW 13.4 (11.6-14.8) % Plt Count 213 (150-400) X10^3/uL Neut % (Auto) 88.6 H (50-75) % Lymph % (Auto) 5.7 L (25-40) % [place] % (Auto) 4.0 (3-14) % Eos % (Auto) 1.6 L (2-4) % Baso % (Auto) 0.1 (0-2) % Neut # (Auto) 8900 H (5462-5980) /uL Lymph # (Auto) 600 L (4948-7040) /uL [place] # (Auto) 400 (0-900) /uL Eos # (Auto) 200 (0-450) /uL Baso # (Auto) 0 (0-100) /uL PT 11.6 (9.4-12.5) SECONDS INR 1.0 (0.9-1.3) Sodium 137 (137-145) mmol/L Potassium 4.1 (3.4-5.1) mmol/L Chloride 106 (98-107) mmol/L Carbon Dioxide 22 (22-32) mmol/L BUN 11 (7-17) mg/dL Creatinine 0.66 (0.52-1.04) mg/dL Estimated GFR > 60 (>60) mL/min BUN/Creatinine Ratio 16.7 (6-22) Glucose 153 H (70-100) mg/dL Lactate 1.8 (0.7-2.1) mmol/L Calcium 9.3 (8.4-10.2) mg/dL Total Bilirubin 0.8 (0.2-1.3) mg/dL AST 24 (14-36) IU/L ALT 18 (<35) IU/L Alkaline Phosphatase 61 (38-126) U/L Troponin I < 0.012 (0.01-0.034) ng/mL NT-Pro-B Natriuret Pep 76 (<125) pg/mL Total Protein 7.6 (6.3-8.2) g/dL Albumin 4.5 (3.5-5.0) g/dL Globulin 3.1 (1.7-4.1) g/dL Albumin/Globulin Ratio 1.5 (1.0-2.8) Chlamy pneumoniae PCR Not detected (Not Detect) Adenovirus (PCR) Not detected (Not Detect) B.parapertussis DNA PCR Not detected (Not Detecte) Coronavirus OC43 (PCR) Not detected (Not Detect) Coronavirus HKU1 (PCR) Not detected (Not Detect) Coronavirus 229E (PCR) Not detected (Not Detect) SARS-CoV-2 (PCR) Not detected (Not Detecte) Coronavirus NL63 (PCR) Not detected (Not Detect) Human Metapneumovir PCR Not detected (Not Detect) Influenza Type A (PCR) Not detected (Not Detect) Influenza Type B (PCR) Not detected (Not Detect) M. pneumoniae (PCR) Not detected (Not Detect) Parainfluenza 1 (PCR) Not detected (Not Detect) Parainfluenza 2 (PCR) Not detected (Not Detect) Parainfluenza 3 (PCR) Not detected (Not Detect) Parainfluenza 4 (PCR) Not detected (Not Detect) RSV (PCR) Not detected (Not Detect) Entero/Rhino (PCR) Detected H (Not Detect) MDM Narrative Medical decision making narrative: History of asthma, recent cough, wheezing, no oxygen requirement but increased work of breathing. IV Solu-Medrol, SVN albuterol continuous. Labs sent. Respiratory panel pending. Chest x-ray pending. Consider viral illness, COVID, influenza, pneumonia, environmental allergen trigger, allergic reaction, other. Respiratory panel positive for rhino virus, other pathogens tested negative. Chest x-ray no acute infiltrates. Patient improved, has bronchodilators at home. We will send prescription for oral prednisone course pulse. Continue topical steroid inhaler as well. Improved, stable for discharge Discharge Plan Departure Patient Disposition: Home Clinical Impression: Asthma exacerbation, Rhinovirus infection Activity Restrictions/Additional Instructions: Recent cough, history of asthma, increasing shortness of breath, wheezing on examination, no oxygen requirement but some increased work of breathing. IV Solu-Medrol steroid was given, and serial breathing treatments. Symptoms improved. Still no oxygen requirement. Chest x-ray no pneumonia changes were seen. Respiratory panel was positive for rhino virus, and negative for COVID and influenza and all other pathogens tested. There is no specific treatment available for rhino virus, treatment is supportive. It is likely the cause of your exacerbation of asthma. No antibacterial antibiotics are necessary at this time. It can be useful to take additional days of steroids to reduce the inflammatory response however, prednisone steroid by mouth was sent to your pharmacy to take for the next few days. Continue your home breathing treatment regimen and topical inhaled steroids. Recheck with your regular doctor in the next couple of days to reassess your breathing at that time. Return to this/nearest emergency department for any change worsening symptoms or any concerns prior Prescriptions: New prednisone 20 mg tablet 40 mg PO DAILY 5 Days Qty: 10 0RF No Action benzonatate 200 mg capsule 200 mg PO BID PRN (Reason: cough) Qty: 30 0RF ipratropium bromide 21 mcg (0.03 %) spray,non-aerosol 2 spray intranasal BID PRN (Reason: allergy symptoms) Qty: 30 0RF Rx Instructions: administer into each nostril losartan 50 MG tablet 50 mg PO QDAY Qty: 30 3RF citalopram 20 MG tablet 10 mg PO QPM Qty: 0 norgestimate-ethinyl estradiol [Estarylla] 0.25-35 mg-mcg tablet See Rx Instructions .ROUTE .COMPLEX Qty: 84 3RF Dose Instruction: TAKE 1 TABLET BY MOUTH DAILY CONTINOUSLY SKIP PLACEBOS Rx Instructions: TAKE 1 TABLET BY MOUTH DAILY CONTINOUSLY SKIP PLACEBOS beclomethasone dipropionate 80 mcg/actuation aerosol INHALATION cyclobenzaprine 5 mg tablet 5 mg PO TID PRN (Reason: muscle spasm) Qty: 5 0RF Rx Instructions: Use as needed for back pain, as often as every 8 hours. montelukast 10 mg tablet 10 mg PO DAILY chlorpheniramine maleate [Allergy (chlorpheniramine)] 4 mg tablet 4 mg PO Q6H PRN (Reason: Allergies) ipratropium-albuterol 0.5 mg-3 mg(2.5 mg base)/3 mL solution for nebulization 3 ml INHALATION Q4-6H PRN (Reason: shortness of breath or wheezing) Qty: 90 0RF ketorolac 10 mg tablet 10 mg PO Q6H PRN (Reason: pain) Qty: 14 0RF albuterol sulfate 90 mcg/actuation HFA aerosol inhaler 2 puff Inhalation Q4H PRN (Reason: Shortness Of Breath) Patient Comments: INHALE 2 PUFFS PO Q 4 H PRF SOB OR WHEEZING albuterol sulfate 2.5 mg /3 mL (0.083 %) solution for nebulization 2.5 mg inhalation Q4H PRN (Reason: shortness of breath or wheezing) Qty: 75 0RF cyclobenzaprine 10 mg tablet 10 mg PO TID PRN (Reason: muscle spasm) Qty: 21 0RF Referrals: Yuliet Pink MD [Primary Care Provider] - Stand Alone Forms: Patient Portal/API
[2024-01-15] MEDS: ALBUTEROL 2.5 MG/3 ML NEB (ADULT) 20 MG INH (12:29)
[2024-01-15 12:30] VITALS: BP 162/95; PULSE 103; PULSE 94; RESP 20; RESP 27; O2SAT 94; O2SAT 95
[2024-01-15 12:31] LABS: Add Manual Diff / Slide Review NO; Basophils Absolute Auto 0 /uL (0-100); Basophils Percent Auto 0.1 % (0-2); Eosinophils Absolute Auto 200 /uL (0-450); Eosinophils Percent Auto 1.6 % (2-4); Hematocrit 40.4 % (36-46); Hemoglobin 13.7 g/dL (12.0-16.0); Lymphocytes Absolute Auto 600 /uL (1100-4500); Lymphocytes Percent Auto 5.7 % (25-40); Mean Corpuscular HGB Conc 33.8 % (30-36); Mean Corpuscular Hemoglobin 30.3 PG (26-34); Mean Corpuscular Volume 89.5 fL (80-100); Monocytes Absolute Auto 400 /uL (0-900); Neutrophils Absolute Auto 8900 /uL (1500-7000); Neutrophils Percent Auto 88.6 % (50-75); Platelet Count 213 X10^3/uL (150-400); Red Blood Cell Count 4.51 X10^6/uL (4.0-5.2); Red Cell Distribution Width 13.4 % (11.6-14.8); White Blood Cell Count 10.1 X10^3/uL (4.5-11.0)
[2024-01-15 12:37] LABS: Prothrombin Time 11.6 SECONDS (9.4-12.5)
[2024-01-15 12:45] LABS: Alanine Aminotransferase 18 IU/L (<35); Albumin 4.5 g/dL (3.5-5.0); Albumin Globulin Ratio 1.5 (1.0-2.8); Alkaline Phosphatase 61 U/L (38-126); Aspartate Aminotransferase 24 IU/L (14-36); BUN Creatinine Ratio 16.7 (6-22); Bilirubin Total 0.8 mg/dL (0.2-1.3); Blood Urea Nitrogen 11 mg/dL (7-17); Calcium 9.3 mg/dL (8.4-10.2); Carbon Dioxide 22 mmol/L (22-32); Chloride 106 mmol/L (98-107); Estimated Glomerular Filt Rate > 60 mL/min (>60); Globulin 3.1 g/dL (1.7-4.1); Glucose 153 mg/dL (70-100); HEMOLYSIS 26 (0-50); Potassium 4.1 mmol/L (3.4-5.1); Sodium 137 mmol/L (137-145); Total Protein 7.6 g/dL (6.3-8.2)
[2024-01-15 12:46] LABS: Lactate (Lactic Acid) 1.8 mmol/L (0.7-2.1)
[2024-01-15 12:57] LABS: NT-proBNP (BNP-Adult 18+) 76 pg/mL (<125); Troponin I < 0.012 ng/mL (0.01-0.034)
[2024-01-15 13:00] VITALS: BP 146/90; PULSE 102; RESP 26; O2SAT 94
[2024-01-15 13:17] LABS: Adenovirus Not Detected (Not Detect); B. parapertussis Not Detected (Not Detecte); Bordetella pertussis Not Detected (Not Detect); Chlamydophila pneumoniae Not Detected (Not Detect); Coronavirus 229E Not Detected (Not Detect); Coronavirus HKU1 Not Detected (Not Detect); Coronavirus NL 63 Not Detected (Not Detect); Coronavirus OC43 Not Detected (Not Detect); Human Metapneumovirus Not Detected (Not Detect); Human Rhinovirus/Enterovirus Detected (Not Detect); Influenza A Not Detected (Not Detect); Influenza B Not Detected (Not Detect); Mycoplasma pneumoniae Not Detected (Not Detect); Parainfluenza Virus 1 Not Detected (Not Detect); Parainfluenza Virus 2 Not Detected (Not Detect); Parainfluenza Virus 3 Not Detected (Not Detect); Parainfluenza Virus 4 Not Detected (Not Detect); Respiratory Syncytial Virus Not Detected (Not Detect); SARS- CoV-2 Not Detected (Not Detecte)
[2024-01-15 13:30] VITALS: BP 150/86; PULSE 100; RESP 27; O2SAT 95
== END 2024-01-15 14:03 | disposition home or self-care (01) ==
PROVIDERS: Emergency Provider Emergency Medicine; PCP Urology
DX: J45.901 Unspecified asthma with (acute) exacerbation (principal); B34.8 Other viral infections of unspecified site; Z11.52 Encounter for screening for COVID-19
CPT/HCPCS: 36415; 71045; 80053; 83605; 83880; 84484; 85025; 85610; 87633; 94640; 99284; J7613

== ENCOUNTER → 2024-10-05 09:31 | Outpatient (CLI) | payer BC, SELFPAY ==
[2020-04-25 14:01] VITALS: BMI 26.1
--- NOTE | 2024-10-05 09:33 | DI.RAD.S_ITS ---
PROCEDURE: XR HIP W PEL IF DONE RT 2V INDICATIONS: Right hip pain TECHNIQUE: AP pelvis with lateral view(s) of the right hip(s). COMPARISON: CT, CT ABDOMEN PELVIS W CON, 04/02/2022, 12:13. FINDINGS: Bones: No fractures or dislocations. Pelvic ring appears intact. No suspicious bony lesions. Soft tissues: The visualized bowel gas pattern is normal. No suspicious soft tissue calcifications. IMPRESSION: No definite radiographic abnormality. If pain persists with conservative management, consider repeat plain films or cross sectional imaging such as CT or MRI for further assessment. Dictated by: Clem Henderson [facility] Interpreted: Sandrita Eckert MD on 10/06/2024 at 12:31 Transcribed by: MIGUEL on 10/06/2024 at 12:32 Approved by: Sandrita Eckert M.D. on 10/08/2024 at 7:43
--- NOTE | 2024-10-05 09:33 | DI.RAD.S_ITS ---
PROCEDURE: XR SHOULDER RT MIN 2V INDICATIONS: Right shoulder pain TECHNIQUE: 3 views of the shoulder were acquired. COMPARISON: [facility], CR, XR CHEST 1V, 01/15/2024, 12:39. FINDINGS: Bones: No fractures or dislocations. No suspicious bony lesions. Visualized ribs appear intact. Soft tissues: No suspicious soft tissue calcifications. IMPRESSION: No definite radiographic abnormality. If pain persists with conservative management, consider repeat plain films or cross sectional imaging such as CT or MRI for further assessment. Dictated by: Clem Henderson [facility] Interpreted: Sandrita Eckert MD on 10/06/2024 at 12:31 Transcribed by: MIGUEL on 10/06/2024 at 12:31 Approved by: Sandrita Eckert M.D. on 10/08/2024 at 7:43
[2024-10-05 10:53] LABS: Add Manual Diff / Slide Review NO; Basophils Absolute Auto 100 /uL (0-100); Basophils Percent Auto 0.8 % (0-2); Eosinophils Absolute Auto 200 /uL (0-450); Eosinophils Percent Auto 3.4 % (2-4); Hematocrit 40.9 % (36-46); Hemoglobin 13.9 g/dL (12.0-16.0); Lymphocytes Absolute Auto 2300 /uL (1100-4500); Mean Corpuscular HGB Conc 33.9 % (30-36); Mean Corpuscular Volume 88.5 fL (80-100); Monocytes Absolute Auto 300 /uL (0-900); Monocytes Percent Auto 4.3 % (3-14); Neutrophils Absolute Auto 4100 /uL (1500-7000); Neutrophils Percent Auto 58.5 % (50-75); Platelet Count 214 X10^3/uL (150-400); Red Blood Cell Count 4.62 X10^6/uL (4.0-5.2); Red Cell Distribution Width 13.2 % (11.6-14.8)
[2024-10-05 11:25] LABS: Alanine Aminotransferase 13 IU/L (<35); Albumin 4.6 g/dL (3.5-5.0); Albumin Globulin Ratio 1.8 (1.0-2.8); Alkaline Phosphatase 52 U/L (38-126); Aspartate Aminotransferase 22 IU/L (14-36); BUN Creatinine Ratio 20.7 (6-22); Bilirubin Total 0.9 mg/dL (0.2-1.3); Blood Urea Nitrogen 18 mg/dL (7-17); Calcium 9.7 mg/dL (8.4-10.2); Carbon Dioxide 25 mmol/L (22-32); Chloride 105 mmol/L (98-107); Cholesterol 213 mg/dL (140-199); Estimated Glomerular Filt Rate > 60 mL/min (>60); Globulin 2.5 g/dL (1.7-4.1); Glucose 89 mg/dL (70-99); HDL Cholesterol 76 mg/dL (40-60); HEMOLYSIS < 15 (0-50); LDL Cholesterol Calculated 121 mg/dL (<100); Potassium 4.9 mmol/L (3.4-5.1); Sodium 137 mmol/L (137-145); Total Protein 7.1 g/dL (6.3-8.2); Triglycerides 80 mg/dL (35-150)
[2024-10-05 11:56] LABS: TSH w/ Reflex to FT4 1.03 uIU/mL (0.47-4.68)
== END ==
PROVIDERS: PCP Family Medicine; Referring Provider Family Medicine; Visit Provider Family Medicine
DX: M25.551 Pain in right hip (principal); I10 Essential (primary) hypertension; J45.909 Unspecified asthma, uncomplicated; R53.83 Other fatigue; F32.9 Major depressive disorder, single episode, unspecified
CPT/HCPCS: 36415; 73030; 73502; 80053; 80061; 84443; 85025

== ENCOUNTER → 2025-02-18 08:33 | Outpatient (CLI) | payer BC, SELFPAY ==
[2020-04-25 14:01] VITALS: BMI 26.1
--- NOTE | 2025-02-18 08:34 | DI.MG.S_ITS ---
MM screening mammo BI: 02/18/2025. BI-RADS: 1 CLINICAL: 50-year old female for bilateral screening mammogram. Tyrer-Cuzick lifetime risk of 21.0%. Current reported family history of breast cancer: maternal grandmother and mother. PRIOR EXAMS 04/04/2023, 06/24/2015. MAMMOGRAPHY TECHNIQUE: 2D and 3D (tomosynthesis) digital mammographic views obtained, with additional images as needed for full coverage. Current study was also evaluated with a Computer Aided Detection (CAD) system. DENSITY C. The breasts are heterogeneously dense, which may obscure small masses. MAMMOGRAPHY FINDINGS Bilateral: No suspicious mass, asymmetry, microcalcification, or other abnormality seen. IMPRESSION: * No evidence of malignancy. RECOMMENDATIONS Bilateral * According to the Tyrer-Cuzick Risk Assessment Model, based on the information provided your patient has a greater than 20% lifetime risk for developing breast cancer. Consider supplemental screening with breast MRI and participation in a high risk screening program. * Annual screening mammography. OVERALL ASSESSMENT CATEGORY BI-RADS-1: Negative. [employer] recommends annual screening mammography beginning at age 40 for women with average risk of breast cancer. ELECTRONICALLY SIGNED: Hans Cooper M.D. on 02/19/2025 at 08:53:29 AM PT Interpreting Station ID: [id number]
== END ==
LOC: MAMMO 08:34
PROVIDERS: PCP Family Medicine; Referring Provider Family Medicine; Visit Provider Family Medicine
DX: Z12.31 Encounter for screening mammogram for malignant neoplasm of breast (principal); R92.333 Mammographic heterogeneous density, bilateral breasts; Z80.3 Family history of malignant neoplasm of breast
CPT/HCPCS: 77063; 77067